=== PATIENT | female | born 1930 | race Caucasian/White ===

== ENCOUNTER 2017-07-02 08:27 | Inpatient (IN) | payer MEDICAID, OTHER ==
[~2017-07-02] VITALS: Ht 154.9 cm; Wt 75.4 kg
[2017-07-02] VITALS (37 sets, daily range): BP systolic 91–136; BP diastolic 62–101; PULSE 58–71; RESP 16–22; TEMP 94.9; Ht 154.9 cm; Wt 75.4 kg
[~2017-07-02 08:27] MED LIST: AMIODARONE 150 MG INJ ONE; ASCO500S2 PO; ATROPINE 1 MG/10 ML SYRINGE ONE; BENA5TAB2 PO; CA CHLORIDE 10% 10 ML SYRINGE ONE; CARAS PO; CARV12.579 PO; DOCU250C58 PO; DOPamine-D5W 1.6 MG/ML 250 ML ONE; EPINEPHrine 0.1 MG/ML SYG ONE; ETOMIDATE 20 MG INJ ONE; FER325 PO; FURO-109 PO; IPRA4AER IH; NA BICARBONATE 8.4% 50 ML SYG ONE; PANT40TA3 PO; ROCURONIUM 50 MG INJ ONE; SPIR25TA PO
[2017-07-02] MEDS ORDERED: NA BICARBONATE 8.4% 50 ML SYG IV STA (08:29)
[2017-07-02] MEDS ORDERED: SOD CHLORIDE 0.9% 1,000 ML IV STA (08:29)
[2017-07-02] MEDS ORDERED: CA CHLORIDE 10% 10 ML SYRINGE IV STA (08:29)
[2017-07-02] MEDS ORDERED: HYDROmorphONE 1 MG/ML SYG IV STA (08:40)
[2017-07-02] MEDS ORDERED: ONDANSETRON 4 MG INJ IV STA (08:40)
[2017-07-02] MEDS ORDERED: HYDROmorphONE 1 MG/ML SYG ONE (08:41)
[2017-07-02] MEDS ORDERED: ROCURONIUM 50 MG INJ IV STA (08:46)
[2017-07-02] MEDS ORDERED: PROPOFOL 100 ML IV STA (08:46)
[2017-07-02] MEDS ORDERED: DOPamine-D5W 1.6 MG/ML 250 ML IV STA (08:46)
[2017-07-02] MEDS ORDERED: ETOMIDATE 20 MG INJ IV STA (08:46)
[2017-07-02 08:55] LABS: BASOPHIL # 0.1 10^3/ul (0.0-0.1); BASOPHILS % 0.7 % (0.0-2.0); EOSINOPHILS % 0.5 % (0.0-7.0); HEMOGLOBIN 12.6 g/dl (12.0-16.0); MEAN CORPUSCULAR HEMOGLOBIN 31.7 pg (29.0-33.0); MEAN CORPUSCULAR HGB CONC 31.5 g/dl (32.0-37.0); MEAN CORPUSCULAR VOLUME 100.5 fl (82.0-101.0); MEAN PLATELET VOLUME 10.9 fl (7.4-10.4); MONOCYTE # 0.5 10^3/ul (0.3-0.9); MONOCYTES % 6.1 % (0.0-11.0); NEUTROPHILS % 55.2 % (39.0-77.0); PLATELET COUNT 155 10^3/UL (140-415); RED BLOOD COUNT 3.98 10^6/ul (4.20-5.40); RED CELL DISTRIBUTION WIDTH 14.2 % (11.5-14.5); WHITE BLOOD COUNT 8.1 10^3/ul (4.8-10.8)
[2017-07-02] MEDS ORDERED: ATROPINE 0.4 MG INJ IV ONE (09:00)
[2017-07-02] MEDS ORDERED: AMIODARONE 150 MG INJ IV STA (09:03)
[2017-07-02 09:10] LABS: INR 1.23; PROTIME 15.6 Sec (12.2-14.2); PT RATIO 1.2
[2017-07-02 09:11] LABS: PARTIAL THROMBOPLASTIN TIME 26.2 Sec (25.0-35.0)
--- NOTE | 2017-07-02 09:13 | RADRPT ---
PROCEDURE: XR Chest. CLINICAL INDICATION: Status post intubation TECHNIQUE: Single portable view of the chest was obtained COMPARISON: 10/15/2014 FINDINGS: There is a new endotracheal tube 2.3 cm above the gennaro. There is mild cardiomegaly. There is a left-sided pacemaker in place. There is no focal infiltrate . There are mild bibasilar atelectatic changes, left greater than right . There is no pleural effus ion or pneumothorax. RPTAT: AA IMPRESSION: New endotracheal tube in appropriate position. Mild cardiomegaly. Mild bibasilar atelectatic changes. .Anil Lal MD, MD Date Time Electronically viewed and signed by .Anil Lal MD, on 07/02/2017 09:12 .S/
[2017-07-02 09:14] LABS: CALCIUM 9.4 mg/dl (8.4-10.2); CREATININE 1.51 mg/dl (0.44-1.00); MAGNESIUM 2.1 mg/dl (1.7-2.5); POTASSIUM 5.4 mmol/L (3.5-5.1)
[2017-07-02] MEDS ORDERED: GLUCAGON 1 MG INJ IV STA (09:19)
[2017-07-02 09:26] LABS: TROPONIN-I 0.017 ng/ml (0.00-0.12)
[2017-07-02 09:51] LABS: AADO2 Arterial 422.6 mmHg (7.0-24.0); Allen Test ACCEPTAB; Arterial Base Excess -9.3 mmol/L (-3.0-3); Arterial COHb 0.3 % (0.0-3.0); Arterial Fraction of Oxyhgb 98.8 % (93.0-99.0); Arterial MetHb 0.2 % (0.0-1.5); Arterial Total Hemglobin 13.6 g/dl (12.0-18.0); MODE VENT - AC
--- NOTE | 2017-07-02 11:20 | ERA ---
ER Documentation Chief Complaint Date/Time DATE: 07/02/17 TIME: 11:15 Chief Complaint Syncope and vomiting HPI Patient is a 86-year-old female with stroke and previous pacemaker placement who presents with syncope and vomiting. The patient was brought in by ambulance. The patient had a syncopal event which lasted 1 minute per paramedics. The patient was having shortness of breath but no pain. The patient has no history of kidney issues. The patient is currently complaining of nausea. 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 ROS All systems reviewed and are negative except as per history of present illness. Medications Home Meds Active Scripts Albuterol/Ipratropium* (Combivent Respimat*) 20-100 Mcg/Inh - 4 Gm Aer.w.adap, 1 PUFF IH QID, #30 INH Prov:KELVIN SNYDER MD 10/15/14 Furosemide* (Lasix*) 40 Mg Tablet, 40 MG PO BID, #60 TAB Prov:KELVIN SNYDER MD 10/15/14 Pantoprazole* (Protonix*) 40 Mg Tablet.dr, 40 MG PO DAILY for 30 Days, TAB Prov:LINDA SAMSON 10/10/14 Ascorbic Acid* (Ascorbic Acid*) 500 Mg/5 Ml Syrup, 500 MG PO BID for 30 Days, ML Prov:LINDA SAMSON 10/10/14 Sucralfate* (Carafate*) 1 Gm/10 Ml Susp, 1 GM PO QID for 30 Days Prov:LINDA SAMSON 10/10/14 Ferrous Sulfate* (Ferrous Sulfate*) 325 Mg Tabec, 325 MG PO BID for 30 Days Prov:LINDA SAMSON 10/10/14 Reported Medications Docusate Sodium* (Colace*) 250 Mg Capsule, 250 MG PO DAILY, CAP 09/27/14 Spironolactone* (Aldactone*) 25 Mg Tablet, 25 MG PO DAILY, TAB 09/27/14 Benazepril Hcl* (Benazepril Hcl*) 5 Mg Tablet, 5 MG PO DAILY, TAB 09/27/14 Carvedilol* (Carvedilol*) 12.5 Mg Tablet, 12.5 MG PO BID, TAB 09/27/14 Allergies Allergies: Coded Allergies: No Known Allergies (Verified Allergy, Unknown, 10/11/14) Uncoded Allergies: JEHOVAH WITNESS (Allergy, Unknown, CAUTION W/ BLOOD PRODUCTS CHECK LIST OF ACCEPTABLE PRODUCTS, 09/28/14) PMhx/Soc History of Surgery: Yes (pacemaker,appy,recent Endoclip for jejunal ulcer) Anesthesia Reaction: No Hx Neurological Disorder: No Hx Respiratory Disorders: No Hx Cardiac Disorders: Yes (CHF, HTN, A-fib, PVD, High Cholesterol, Pacer) Hx Psychiatric Problems: No Hx Miscellaneous Medical Probl: Yes (hemorragic anemia, afib, pacemaker cva, pvd) Hx Alcohol Use: No Hx Substance Use: No Hx Tobacco Use: No Smoking Status: Never smoker FmHx Family History: No diabetes Physical Exam Vitals Vital Signs Date Time Temp Pulse Resp B/P Pulse Ox O2 Delivery O2 Flow Rate FiO2 07/02/17 10:44 70 17 100 100 07/02/17 10:37 70 16 115/70 100 Mechanical Ventilator 07/02/17 10:20 72 16 83/26 100 Mechanical Ventilator 07/02/17 09:58 64 16 70/45 100 Mechanical Ventilator 07/02/17 09:57 70 16 100 100 07/02/17 09:35 70 16 86/53 100 Mechanical Ventilator 07/02/17 09:13 71 16 101/76 100 Mechanical Ventilator 07/02/17 09:00 158 194/166 90 Non Rebreather 07/02/17 08:30 188/162 Physical Exam Const: Moderate distress Head: Atraumatic Eyes: Normal Conjunctiva ENT: Normal External Ears, Nose and Mouth. Neck: Full range of motion..~ No meningismus. Resp: Clear to auscultation bilaterally Cardio: Severe bradycardia Abd: Soft, non tender, non distended. Normal bowel sounds Skin: Pale skin Back: No midline or flank tenderness Ext: No cyanosis, or edema Neur: Awake and alert Psych: Normal Mood and Affect Result Diagram: 07/02/17 0840 07/02/17 0840 Results 24 hrs Laboratory Tests Test 07/02/17 08:40 07/02/17 08:46 07/02/17 08:48 White Blood Count 8.110^3/ul Red Blood Count 3.9810^6/ul Hemoglobin 12.6g/dl Hematocrit 40.0% Mean Corpuscular Volume 100.5fl Mean Corpuscular Hemoglobin 31.7pg Mean Corpuscular Hemoglobin Concent 31.5g/dl Red Cell Distribution Width 14.2% Platelet Count 69466^3/UL Mean Platelet Volume 10.9fl Neutrophils % 55.2% Lymphocytes % 37.0% Monocytes % 6.1% Eosinophils % 0.5% Basophils % 0.7% Nucleated Red Blood Cells % 0.0/100WBC Neutrophils # (Manual) 410^3/ul Lymphocytes # 3.010^3/ul Monocytes # 0.510^3/ul Eosinophils # 0.010^3/ul Basophils # 0.110^3/ul Nucleated Red Blood Cells # 0.010^3/ul Prothrombin Time 15.6Sec Prothrombin Time Ratio 1.2 INR International Normalized Ratio 1.23 Activated Partial Thromboplast Time 26.2Sec Sodium Level 141mmol/L Potassium Level 5.4mmol/L Chloride Level 113mmol/L Carbon Dioxide Level 16mmol/L Anion Gap 17 Blood Urea Nitrogen 24mg/dl Creatinine 1.51mg/dl Glucose Level 228mg/dl Lactic Acid Level 3.1mmol/L Calcium Level 9.4mg/dl Magnesium Level 2.1mg/dl Troponin I 0.017ng/ml Blood Gas Specimen Source Blood arterial Arterial Blood Date Drawn 07/02/2017 9:40:58 AM Arterial Blood pH (Temp corrected) 7.373 Arterial Blood pCO2 (Temp correct) 24.6mmhg Arterial Blood pO2 (Temp corrected) 265.8mmHG Arterial Blood HCO3 14.0mmol/L Arterial Blood Base Excess -9.3mmol/L Arterial Blood Oxygen Saturation 99.3mmHG [place] Test ACCEPTAB Arterial Blood Gas Puncture Site Left Radial Arterial Blood Carboxyhemoglobin 0.3% Arterial Blood Methemoglobin 0.2% Blood Gas A-a O2 Differential 422.6mmHg Oxyhemoglobin Percent 98.8% Total Hemoglobin 13.6g/dl Blood Gas Temperature 37.0C Blood Gas Respiration Rate 16.0 Blood Gas Actual Respiration Rate 16 Blood Gas Modality VENT - AC FiO2 100.0% Blood Gas Tidal Volume 450.0mL Blood Gas Low PEEP Setting 5.0cmH2O Blood Gas Notified Whom M.D. Blood Gas Notified Time 07/02/2017 9:51:22 AM Bedside Glucose 187mg/dL Current Medications Medications (Trade) Dose Ordered Sig/Marshall Route PRN Reason Start Time Stop Time Status Last Admin Dose Admin Sodium Bicarbonate 50 ml 50 ml ONCE STAT IV 07/02/17 08:29 07/02/17 08:31 DC Sodium Chloride (NS) 1,000 ml @ 1,000 mls/hr Q1H STAT IV 07/02/17 08:29 07/02/17 09:28 DC Calcium Chloride (Ca Chloride 10% Syg) 1,000 mg ONCE STAT IV 07/02/17 08:29 07/02/17 08:31 DC Atropine Sulfate (Atropine) 0.5 mg ONCE ONCE IV 07/02/17 09:00 07/02/17 09:01 DC Hydromorphone HCl (Dilaudid) 1 mg ONCE STAT IV 07/02/17 08:40 07/02/17 08:41 DC Ondansetron HCl (Zofran Inj) 4 mg ONCE STAT IV 07/02/17 08:40 07/02/17 08:41 DC Hydromorphone HCl (Dilaudid) 1 mg STK-MED ONCE .ROUTE 07/02/17 08:41 07/02/17 08:42 DC Rocuronium [place] (Zemuron) 70 mg ONCE STAT IV 07/02/17 08:46 07/02/17 08:50 DC Etomidate 20 mg 20 mg ONCE STAT IV 07/02/17 08:46 07/02/17 08:50 DC Propofol 100 ml @ 0 mls/hr ONCE STAT IV 07/02/17 08:46 07/02/17 08:50 DC Dopamine HCl/ Dextrose 250 ml @ 0 mls/hr ONCE STAT IV 07/02/17 08:46 07/02/17 08:50 DC Amiodarone HCl (Cordarone) 300 mg ONCE STAT IV 07/02/17 09:03 07/02/17 09:04 DC Glucagon (Glucagen) 1 mg ONCE STAT IV 07/02/17 09:19 07/02/17 09:21 DC Procedures/MDM EKG read by me: Rate/Rhythm: Severe bradycardia at a rate of 20 Intervals: Normal Impression: Severe bradycardia with third-degree heart block Chest X-ray 1V Interpreted by me: Soft Tissue: No acute abnormalities Bones: No acute abnormalities Mediastinum/Cardiac Silhouette/Lungs: Cardiomegaly with pacemaker in good position, ET tube in good position after intubation Limited transthoracic echo performed by me Indication: To evaluate cardiac contractility and external pacemaker function Pericardium: [No effusion] Cardiac: Contraction with every pacer spike Image archived in the medical record. Endotracheal Intubation by me: Pre assessment performed. Pre-oxygenation performed with 100% oxygen RSI: Performed w/o complication or hypoxic events. Medications as ordered. Blade: MAC 3 Glidescope ET Tube: 7.5 cm Depth: 23 cm at the lip Intubation confirmed by colorimetric CO2, equal breath sounds, quiet over the stomach. Central Line Placement by me: Patient consented, sterilely draped, full prep, gown, glove, mask, time out performed. Anesthesia: 1% lidocaine locally Location: Right femoral Device: Multiple lumen Technique: Seldinger technique. Secured with suture. Results: Venous return from all ports with easy saline flush. No complications. Guide wire retrieved and disposed of. ED Ultrasound: Central line placed by me using concurrent ultrasound guidance. Real time image archived in the medical record confirms vascular anatomy. Defibrillation: Patient required defibrillation during the cardiac arrest Technique: Biphasic defibrillation at 200 J for ventricular tachycardia Patient is a 86-year-old female who presents with severe bradycardia and syncope. She had asystole early in her emergency department course and had an episode of vomiting and was unconscious. Rhythm quickly returned but the patient was intubated for airway protection. She was started on external pacing as well as it appears that her pacemaker is not functioning correctly. We are able to get good pulses with external pacing and I did confirm with ultrasound of the heart. The patient was treated empirically with calcium chloride and bicarbonate upon arrival for potential hyperkalemia but labs only show a mild hyperkalemia of 5.4 and I do not think this is the cause of her severe bradycardia. She was started on a dopamine drip which has helped keep her rate and blood pressure elevated. I spoke with Dr. Andrea who saw her previously in 2013 he said that he would be available for consultation in the afternoon. I spoke with Dr. Clayton as the patient has [employer] insurance and she will admit the patient to the intensive care unit. The patient had 2 separate episodes of cardiac arrest while in the emergency department but quickly came back with 1 mg of epinephrine and CPR. After the first cardiac arrest she was in ventricular tachycardia and the patient was given 200 J defibrillation and 300 mg of amiodarone. I also spoke with the [employer] rep who is come to the bedside and evaluated the pacemaker. He says that he cannot do a full interrogation as there is none of power in the battery and recommends a battery change. [employer] was going to relay this information to Dr. Andrea as well. Dr. Linder has also seen the patient in consultation for critical care treatment. Critical Care: Time: 55 minutes excluding all billable procedures. Treatments/Evaluations: Close monitoring and treatment of unstable vital signs, cardiorespiratory, and neurologic status, while maintaining tight balance of fluid, respiratory, and cardiac interventions. Departure Diagnosis: Primary Impression: Pacemaker failure Qualified Code: T82.118A - Pacemaker failure, initial encounter Additional Impressions: Cardiac arrest Asystole Bradycardia Condition: Critical VOLODYMYR CARDONA MD Jul 02, 2017 11:19
[2017-07-02] MEDS ORDERED: DOCUSATE SODIUM 100 MG CAP PO PRN (12:00)
[2017-07-02] MEDS ORDERED: ACETAMINOPHEN 650MG/20.3ML CUP PO PRN (12:00)
[2017-07-02] MEDS ORDERED: ACETAMINOPHEN 325 MG TAB PO PRN ×2 (12:00→18:00)
[2017-07-02] MEDS ORDERED: BISACODYL 10 MG SUPP PR PRN ×2 (12:00→12:30)
[2017-07-02] MEDS ORDERED: ONDANSETRON 4 MG INJ IV PRN (12:00)
[2017-07-02] MEDS ORDERED: MAGNESIUM HYDROXIDE 30ML CUP PO PRN (12:00)
[2017-07-02] MEDS ORDERED: DOCUSATE SODIUM 250 MG CAP PO PRN (12:30)
[2017-07-02] MEDS ORDERED: FURO20TA3 PO (12:51)
[2017-07-02] MEDS ORDERED: GABA300C16 PO (12:52)
[2017-07-02] MEDS ORDERED: CARV3.1260 PO (12:53)
[2017-07-02] MEDS ORDERED: ATOR20TA38 PO (12:53)
[2017-07-02] MEDS ORDERED: OMEP40CA6 PO (12:54)
[2017-07-02] MEDS ORDERED: MIRT15TA5 PO (12:54)
[2017-07-02] MEDS ORDERED: RIVA15TA PO (12:55)
[2017-07-02] MEDS: DOPamine-D5W 1.6 MG/ML 250 ML IV SCH ×2 (13:30→19:20)
--- NOTE | 2017-07-02 13:57 | HP ---
Date/Time of Note Date/Time of Note DATE: 07/02/17 TIME: 13:41 Assessment/Plan VTE Prophylaxis VTE Prophylaxis Intervention: SCD's Lines/Catheters IV [facility]ter Type (from [facility]): Central Line Central line still needed: Yes (IV access) Urinary Cath still in place: Yes Reason Cath still needed: other (indicate) (Cardiac arrest, intubated) Assessment/Plan Assessment/Plan 86-year-old female with: 1. 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 Dr. Andrea consulted. Rule out acute coronary syndrome with serial cardiac enzymes, Patient admitted to intensive care unit, on dopamine drip and external pacer. 2D echocardiogram ordered. Holding all cardiac medications and also Xarelto. 2. Sick sinus syndrome and or paroxysmal atrial fibrillation based on medications patient is on, external pacer in place, patient in the intensive care unit. 3. Likely coronary artery disease and ischemic cardiomyopathy very likely, 2D echocardiogram pending, I will be holding current medication including beta blockers and diuretics and also [place] inhibitors. Patient on dopamine drip. Rule out acute coronary syndrome. 4. Acute kidney injury versus chronic kidney disease with acute injury, likely patient with ATN given episodes of cardiac arrest, gentle IV fluid hydration with normal saline 75 cc an hour, monitor volume status. 5. Elevated lactate: Postcardiac arrest, continue IV fluids, recheck/trend lactate. 6. Hyperglycemia: No reported history of diabetes mellitus, check hemoglobin A1c, sliding scale insulin. Prophylaxis: SCDs for DVT prophylaxis, of note patient seems to have been on Xarelto based on medication reconciliation, Protonix for GI prophylaxis Disposition: Patient admitted to intensive care unit, cardiology evaluation today regarding pacemaker battery change for device change. HPI/ROS Admit Date/Time Admit Date/Time Jul 02, 2017 at 09:58 Hx of Present Illness Chief complaint: Vomiting, syncope History of presenting illness: 86-year-old female with a reported history of likely cardiomyopathy, sick sinus syndrome status post pacemaker and likely pacemaker dependent, hypertension, previous strokes 2 latest one a year ago and fairly independent and active at baseline who presented today to the emergency department with reported episode of syncope and acute onset of nausea and vomiting per family. On presentation the patient's heart rate was in the 20s. She was awake and alert but unfortunately progressed to cardiac arrest and respiratory failure had to be intubated. Patient likely pacemaker has run out of battery, but that is consulted, patient has an external pacer currently while intubated, on the ventilator, on dopamine drip, on propofol for sedation. She is being admitted to the intensive care unit. She is obviously unable to give any history, history was obtained from his granddaughter. They are unsure if the patient has been following up with cardiology. She had her original pacemaker placed back in 2000 somewhere in [place]. It seems like either the device was replaced or battery was changed back in 2008. ROS Unable to obtain review of system PMH/Family/Social Past Medical History Hypertension Cardiomyopathy Likely sick sinus syndrome and or atrial fibrillation and pacemaker dependent, also on Xarelto per outpatient medications Reactive airway disease Hyperlipidemia Reported history of old CVA 2, 120 years ago and a second 1 year ago. According to family patient has no significant deficits. Past Surgical History Status post pacemaker placement in 2000, either battery change or pacemaker replacement in 2009 Status post hip ORIF a year ago Family History Significant Family History: no pertinent family hx Social History Alcohol Use: none Smoking Status: Never smoker Drug Use: none Exam/Review of Systems Vital Signs Vitals Vital Signs Date Time Temp Pulse Resp B/P Pulse Ox O2 Delivery O2 Flow Rate FiO2 07/02/17 12:45 94.9 71 17 129/75 100 Mechanical Ventilator 07/02/17 12:16 50 07/02/17 08:30 15.0 Exam Constitutional: other (Intubated and sedated and still under paralytics when I saw her) Respiratory: diminished breath sounds, other (On mechanical ventilation) Cardiovascular: other (Externally paced) Gastrointestinal: non-tender, soft Musculoskeletal: nl extremities to inspection, other (No edema, clubbing or cyanosis) Extremities: normal pulses Neurological: other (Sedated and intubated, still under paralytics post intubation) Labs Result Diagram: 07/02/17 0840 07/02/17 0840 Medications Medications Current Medications Sodium Chloride (NS) 1,000 ml @ 75 mls/hr [id number] IV ; Start 07/02/17 at 11:51 Ondansetron HCl (Zofran Inj) 4 mg Q6H PRN IV NAUSEA AND/OR VOMITING; Start at 12:00 Acetaminophen (Tylenol Liquid) 650 mg Q6H PRN PO PAIN LEVEL 1-3 OR FEVER; Start 07/02/17 at 12:00 Acetaminophen (Tylenol Tab) 650 mg Q6H PRN PO PAIN LEVEL 1-3 OR FEVER; Start at 12:00 Morphine Sulfate (morphine) 2 mg Q4H PRN IV PAIN LEVEL 7-10; Start 07/02/17 at 12:00 Docusate Sodium (Colace) 100 mg Q12H PRN PO CONSTIPATION; Start 07/02/17 at 12: 00 Magnesium Hydroxide (Milk Of Mag) 30 ml DAILY PRN PO CONSTIPATION; Start at 12:00 Pantoprazole (Protonix Iv) 40 mg DAILY@06 IV ; Start 07/03/17 at 06:00 Ferrous Sulfate (Ferrous Sulfate (Ec)) 325 mg BID PO ; Start 07/02/17 at 21:00 Bisacodyl (Dulcolax Supp) 10 mg DAILY PRN VT CONSTIPATION; Start 07/02/17 at 12 :30 JACQUE MARTINEZ Jul 02, 2017 13:53
[2017-07-02] MEDS ORDERED: GLUCOSE GEL 15 GRAM TUBE BUCCAL PRN (14:00)
[2017-07-02] MEDS ORDERED: GLUCAGON 1 MG INJ IM PRN (14:00)
[2017-07-02] MEDS ORDERED: DEXTROSE 50% 50 ML SYRINGE IV PRN ×2 (14:00)
[2017-07-02] MEDS ORDERED: PROPOFOL 100 ML IV SCH (14:00)
[2017-07-02] MEDS ORDERED: GLUCOSE GEL 15 GRAM TUBE PO PRN ×2 (14:00)
[2017-07-02] MEDS ORDERED: SOD CHLORIDE 0.9% 1,000 ML IV ONE (14:00)
[2017-07-02] MEDS: FENTAnyl (DRIP) 1000 mcg/100mL 100 ML IV SCH (14:30)
[2017-07-02 14:43] LABS: BASOPHILS % 0.3 % (0.0-2.0); EOSINOPHILS % 0.1 % (0.0-7.0); HEMATOCRIT 39.6 % (37.0-47.0); HEMOGLOBIN 12.9 g/dl (12.0-16.0); LYMPHOCYTES # 0.8 10^3/ul (0.8-2.9); LYMPHOCYTES % 6.5 % (15.0-51.0); MEAN CORPUSCULAR HEMOGLOBIN 32.5 pg (29.0-33.0); MEAN CORPUSCULAR HGB CONC 32.6 g/dl (32.0-37.0); MEAN CORPUSCULAR VOLUME 99.7 fl (82.0-101.0); MEAN PLATELET VOLUME 10.2 fl (7.4-10.4); MONOCYTE # 1.1 10^3/ul (0.3-0.9); MONOCYTES % 9.3 % (0.0-11.0); NEUTROPHILS % 83.1 % (39.0-77.0); PLATELET COUNT 140 10^3/UL (140-415); RED BLOOD COUNT 3.97 10^6/ul (4.20-5.40); RED CELL DISTRIBUTION WIDTH 13.8 % (11.5-14.5); WHITE BLOOD COUNT 11.8 10^3/ul (4.8-10.8)
[2017-07-02 15:15] LABS: CK-MB 10.6 ng/ml (0.0-2.4)
[2017-07-02 15:19] LABS: TROPONIN-I 3.99 ng/ml (0.00-0.12)
[2017-07-02] MEDS: SOD CHLORIDE 0.9% 1,000 ML IV SCH (15:58)
[2017-07-02] MEDS: ALBUTEROL 18 GM INHALER INH SCH ×2 (16:24→21:12)
[2017-07-02] MEDS: IPRATROPIUM (HFA) 12.9 GM INHALER INH SCH ×2 (16:24→21:12)
[2017-07-02] MEDS ORDERED: POLYMYXIN/BACITRACIN 1L IRRIG IRR SCH (16:30)
--- NOTE | 2017-07-02 16:44 | RADRPT ---
Echocardiogram Report Patient Name: GEORGI MACK Gender: Female Date: 1930 Study Date: 02-Jul-2017 Console Assembler: Queenie De Jesus NATASHA Location: 2 Ref. Physician: CECILIO MARTINEZ Quality: Adequate Procedures: Transthoracic echocardiogram with complete 2D, M-Mode, and doppler examination. Indications: Cardiac Arrest. 2D/M Mode Doppler Measurement Value Normal Ranges Measurement Value Normal Ranges LVIDd 2D 4.6 3.5 - 5.6 cm AV Peak Vladimir 1.2 m/sec LVIDs 2D 3.1 2.1 - 4.1 cm AV Peak PG 6.0 mmHg LVPWd 2D 0.8 0.6 - 1.1 cm LVOT Peak Vladimir 0.7 m/sec IVSd 2D 0.9 0.6 - 1.1 cm LVOT Peak PG 1.9 mmHg AoR Diam 2D 2.4 2.0 - 3.7 cm TR Peak Vladimir 3.7 m/sec EDV 2D 95.9 cm3 TR Peak PG 54.5 mmHg ESV 2D 28.4 cm3 RVSP 65.0 mmHg LA Dimen 2D 3.6 2.3 - 4.0 cm Findings Left Ventricle: Normal left ventricular cavity size. Normal left ventricular wall thickness. Severe global left ventricular systolic dysfunction. Ejection fraction is visually estimated at 25 %. Tissue Doppler/Mitral Doppler indices are within normal limits. Right Ventricle: Normal right ventricular systolic function. Moderate enlargement of right ventricle. Pacemaker right heart. Left Atrium: There is mild enlargement of left atrium. Right Atrium: There is mild enlargement of right atrium. Mitral Valve: Mitral valve leaflets appear mildly thickened. Mild mitral annular calcification. Mild mitral valve regurgitation. Aortic Valve: No significant aortic stenosis or insufficiency. Aortic cusps appear mildly calcified. Tricuspid Valve: Estimated peak PA systolic pressure 65 mmHg. Tricuspid valve appears mildly thickened. There is moderate to severe tricuspid regurgitation. Pulmonic Valve: Pulmonic valve not well visualized. Pericardium: Normal pericardium with no significant pericardial effusion. Aorta: Normal aortic root. IVC: Dilated IVC without respiratory collapse, however, patient on ventilator. Conclusions 1.Normal left ventricular cavity size. Normal left ventricular wall thickness. Severe global left ventricular systolic dysfunction. Ejection fraction is visually estimated at 25 %. Tissue Doppler/Mitral Doppler indices are within normal limits. 2.There is mild enlargement of left atrium. 3.There is mild enlargement of right atrium. 4.Mitral valve leaflets appear mildly thickened. Mild mitral annular calcification. Mild mitral valve regurgitation. 5.No significant aortic stenosis or insufficiency. Aortic cusps appear mildly calcified. 6.Estimated peak PA systolic pressure 65 mmHg. Tricuspid valve appears mildly thickened. There is moderate to severe tricuspid regurgitation. 7.Dilated IVC without respiratory collapse, however, patient on ventilator. Electronically Signed By: Negro Andrea 02-Jul-2017 16:43:22 -0700 Patient Name: GEORGI MACK Study Date: 02-Jul-[id number]
--- NOTE | 2017-07-02 16:58 | CONS ---
Date/Time of Note Date/Time of Note DATE: 07/02/17 TIME: 16:49 Assessment/Plan Assessment/Plan Chief Complaint/Hosp Course 1. CARDIAC ARREST DUE TO HEART BLOCK and pacer End of life in a pt pacer dependent. 2. pacemaker End of life 3. CHF 4. CARDIOMYOPATHY 5. HX CVA 6. PAFIB 7. HEART BLOCK 8. JAHUVAS WITNESS 9. RESP FAILURE Recommendations: We will continue the vent support. External pacemaker for now. Patient will need emergent pacemaker generator change. Placement alternatives of procedure discussed with the patient daughter and discussed with the patient's son over the phone. Single internal bleeding infection risk. OK stroke that is thoroughly discussed with them. Consent the procedure. It was explained to them that she may or may not need in limb lead II which would also add additional risks include pneumothorax hemothorax perforation other cardiac medication to the procedure. At this point we cannot check the lead intubated to the pacemaker battery being completely Continue with ICU care. More than 45 minutes of critical care time was spent a treatment and management this patient excluding any procedures. Thank you for his referral I will continue to follow along with you. ABDELRAHMAN KOEHLER MD [facility]. Problems: Consultation Date/Type/Reason Admit Date/Time Jul 02, 2017 at 09:58 Type of Consultation: INTERVENTIONAL CARDIOLOGY Reason for Consultation PACEMAKER END OF LIFE. CARDIAC ARREST CHF Hx of Present Illness Chief complaint: Vomiting, syncope History of presenting illness: 86-year-old female with history of cardiomyopathy , heart block status post Medtronic pacemaker hypertension, previous strokes 2 latest one a year ago and fairly independent and active at baseline who presented today to the emergency department with reported episode of syncope and acute onset of nausea and vomiting per family. On presentation the patient' s heart rate was in the 20s. She was awake and alert but unfortunately progressed to cardiac arrest and respiratory failure had to be intubated. multiple cardiac resuscitation was done in ER. Pacemaker was interrogated in the ER by my request and was personally reviewed. Pacemaker is end of life and is not pacing at this point. Patient has been externally paced and transferred to ICU. She has maintained her blood pressure with external pacemaker. She is obviously unable to give any history, history was obtained from her daughter and informed over the phone from her son. According to the family patient pacemaker was interrogated about a year and a half ago. The family does not even know when was the last time she saw her panel laminator. She is also on Xarelto unclear when was the last time she took it. She has requested not to be transfused. Patient currently in ICU being externally paced. She has almost no underlying rhythm though. Allergy NKDA SOCIAL: pt is hehovah witness. full code. nonsmoker now. family hx: no reported early CAD MEDS REVIEWED. ROS: unable to obtain except for above Social History Alcohol Use: none Smoking Status: Never smoker Drug Use: none Exam/Review of Systems Vital Signs Vitals Vital Signs Date Time Temp Pulse Resp B/P Pulse Ox O2 Delivery O2 Flow Rate FiO2 07/02/17 16:15 69 18 100 07/02/17 16:00 118/75 07/02/17 15:38 50 07/02/17 12:45 94.9 Mechanical Ventilator 07/02/17 08:30 15.0 Exam General: intubated on vent HEENT: NC/AT. NECK: + JVD. no stridor. CV: RRR. systolic murmur; no gallop or rubs. PULM:+ rhonchi. GI: SOFT, NT, ND, no rebound or guarding Extremity: trace B/L LE edema. no clubbing. neuro: sedated. Psych: calm and pleasant rectal: deferred : normal echo personally reviewed. EF 25% MOD/ SEVER TR PULM HTN Results Result Diagram: 07/02/17 1436 07/02/17 0840 Results 24 hrs Laboratory Tests Test 07/02/17 08:40 07/02/17 08:46 07/02/17 08:48 07/02/17 14:36 White Blood Count 8.1 # 11.8 #H Red Blood Count 3.98 #L 3.97 L Hemoglobin 12.6 # 12.9 Hematocrit 40.0 # 39.6 Mean Corpuscular Volume 100.5 99.7 Mean Corpuscular Hemoglobin 31.7 32.5 Mean Corpuscular Hemoglobin Concent 31.5 L 32.6 Red Cell Distribution Width 14.2 # 13.8 Platelet Count 155 140 Mean Platelet Volume 10.9 #H 10.2 Neutrophils % 55.2 83.1 H Lymphocytes % 37.0 6.5 L Monocytes % 6.1 9.3 Eosinophils % 0.5 0.1 Basophils % 0.7 0.3 Nucleated Red Blood Cells % 0.0 0.0 Neutrophils # (Manual) 4 10 H Lymphocytes # 3.0 H 0.8 Monocytes # 0.5 1.1 H Eosinophils # 0.0 0.0 Basophils # 0.1 0.0 Nucleated Red Blood Cells # 0.0 0.0 Prothrombin Time 15.6 H Prothrombin Time Ratio 1.2 INR International Normalized Ratio 1.23 Activated Partial Thromboplast Time 26.2 Sodium Level 141 Potassium Level 5.4 H Chloride Level 113 H Carbon Dioxide Level 16 L Anion Gap 17 H Blood Urea Nitrogen 24 H Creatinine 1.51 H Glucose Level 228 H Hemoglobin A1c 5.6 Lactic Acid Level 3.1 *H 2.2 *H Calcium Level 9.4 Magnesium Level 2.1 Troponin I 0.017 3.990 *H Blood Gas Specimen Source Blood arterial Arterial Blood Date Drawn 07/02/2017 9:40:58 AM Arterial Blood pH (Temp corrected) 7.373 Arterial Blood pCO2 (Temp correct) 24.6 L Arterial Blood pO2 (Temp corrected) 265.8 H Arterial Blood HCO3 14.0 L Arterial Blood Base Excess -9.3 L Arterial Blood Oxygen Saturation 99.3 Carlton Test ACCEPTAB Arterial Blood Gas Puncture Site Left Radial Arterial Blood Carboxyhemoglobin 0.3 Arterial Blood Methemoglobin 0.2 Blood Gas A-a O2 Differential 422.6 H Oxyhemoglobin Percent 98.8 Total Hemoglobin 13.6 Blood Gas Temperature 37.0 Blood Gas Respiration Rate 16.0 Blood Gas Actual Respiration Rate 16 Blood Gas Modality VENT - AC FiO2 100.0 Blood Gas Tidal Volume 450.0 Blood Gas Low PEEP Setting 5.0 Blood Gas Notified Whom M.D. Blood Gas Notified Time 07/02/2017 9:51:22 AM Bedside Glucose 187 Creatine Kinase 101 Creatine Kinase Index 10.5 Creatinine Kinase MB (Mass) 10.60 H Test 07/02/17 14:40 Bedside Glucose 197 Medications Medications Current Medications Sodium Chloride (NS) 1,000 ml @ 75 mls/hr [id number] IV Last administered on 07/02t 15:58; Admin Dose 75 MLS/HR; Start 07/02/17 at 11:51 Ondansetron HCl (Zofran Inj) 4 mg Q6H PRN IV NAUSEA AND/OR VOMITING; Start at 12:00 Acetaminophen (Tylenol Liquid) 650 mg Q6H PRN PO PAIN LEVEL 1-3 OR FEVER; Start 07/02/17 at 12:00 Acetaminophen (Tylenol Tab) 650 mg Q6H PRN PO PAIN LEVEL 1-3 OR FEVER; Start at 12:00 Morphine Sulfate (morphine) 2 mg Q4H PRN IV PAIN LEVEL 7-10; Start 07/02/17 at 12:00 Docusate Sodium (Colace) 100 mg Q12H PRN PO CONSTIPATION; Start 07/02/17 at 12: 00 Magnesium Hydroxide (Milk Of Mag) 30 ml DAILY PRN PO CONSTIPATION; Start at 12:00 Pantoprazole (Protonix Iv) 40 mg DAILY@06 IV ; Start 07/03/17 at 06:00 Ferrous Sulfate (Ferrous Sulfate (Ec)) 325 mg BID PO ; Start 07/02/17 at 21:00 Bisacodyl (Dulcolax Supp) 10 mg DAILY PRN [place] CONSTIPATION; Start 07/02/17 at 12 :30 Diagnostic Test (Pha) (Accu-Chek) 1 ea 02 XX ; Start 07/03/17 at 02:00 Miscellaneous Information 1 ea NOTE XX ; Start 07/02/17 at 14:00 Glucose (Glutose) 15 gm Q15M PRN PO DECREASED GLUCOSE; Start 07/02/17 at 14:00 Glucose (Glutose) 22.5 gm Q15M PRN PO DECREASED GLUCOSE; Start 07/02/17 at 14: 00 Dextrose (D50w Syringe) 25 ml Q15M PRN IV DECREASED GLUCOSE; Start 07/02/17 at 14:00 Dextrose (D50w Syringe) 50 ml Q15M PRN IV DECREASED GLUCOSE; Start 07/02/17 at 14:00 Glucagon (Glucagen) 1 mg Q15M PRN IM DECREASED GLUCOSE; Start 07/02/17 at 14:00 Glucose (Glutose) 15 gm Q15M PRN BUCCAL DECREASED GLUCOSE; Start 07/02/17 at 14 :00 ABDELRAHMAN KOEHLER MD Jul 02, 2017 16:58
[2017-07-02] MEDS ORDERED: LIDOCAINE 1%/EPI 30 ML INJ ONE (17:04)
[2017-07-02] MEDS ORDERED: CEFAZOLIN 2 GM/50 ML (PMX) 50 ML IVPB ONE (17:04)
[2017-07-02 17:15] LABS: ALBUMIN 4.1 g/dl (3.3-4.9); ALBUMIN/GLOBULIN RATIO 1.28; CALCIUM 9.9 mg/dl (8.4-10.2); CREATININE 1.57 mg/dl (0.44-1.00); POTASSIUM 5.2 mmol/L (3.5-5.1); TOTAL PROTEIN 7.3 g/dl (6.1-8.1)
--- NOTE | 2017-07-02 18:02 | OPR ---
Date/Time of Note Date/Time of Note DATE: 07/02/17 TIME: 17:59 Operative Report Procedure Date: Jul 02, 2017 Operative\Procedure Findings Procedure performed: Pacemaker Generator Change using a MEDTRONIC VVI MRI compatible pacemaker. deep sedation for 45 minutes. Indication: pacemaker at END OF LIFE in the patient with pacer dependent. Cardiac arrest due to asystole Anesthesia: Propofol Rib Cloth Knitter: Abdelrahman Andrea MD Procedure in detail: Written informed consent was obtained after risks benefits and alternatives discussed with the patient's family in detail. Risks including but not limited to risk of infection, bleeding anesthesia related complications, UT, CVA, etc discussed with pt in detail. Patient was brought into into the Ski Lift Operator and placed in supine position. sedation was given. Left chest area was prepped and draped in regular sterile fashion. Left chest area, over the previous pacemaker was anesthetized using 1% lidocaine with epi. A 3 cm incision was made over the previous pacemaker. Blunt dissection was carried out. Pacemaker was isolated and removed from the pocket. The lead was disconnected and interrogated which showed normal function of the leads. Then the lead was connected into the new device. Pocket was irrigated antibiotic solution. The device was placed in the pocket. Antibiotic pocket was placed around it. Pocket was closed with 2 layers of 3. 0 Vicryl sutures. Steri-Strip was applied. Pressure dressing was applied. Patient tolerated the procedure well with no complication. Please see physical chart for details regarding pacemaker information and thresholds. BLOOD LOSS: minimal ABDELRAHMAN ANDREA MD [facility] ABDELRAHMAN ANDREA MD Jul 02, 2017 18:02
[2017-07-02] MEDS: INSULIN ASPART [NOVOLOG] 3 ML PEN SC SCH ×2 (18:15→21:00)
[2017-07-02] MEDS: PROPOFOL 100 ML IV SCH (18:16)
[2017-07-02] MEDS: FERROUS SULFATE (EC) 325 MG TAB PO SCH (21:00)
[2017-07-02 21:45] LABS: CK-MB 18.4 ng/ml (0.0-2.4)
[2017-07-02 21:52] LABS: TROPONIN-I 8.51 ng/ml (0.00-0.12)
[2017-07-02 22:11] LABS: AADO2 Arterial 191.1 mmHg (7.0-24.0); Allen Test ACCEPTAB; Arterial Base Excess -9.8 mmol/L (-3.0-3); Arterial COHb 0.3 % (0.0-3.0); Arterial Fraction of Oxyhgb 97.9 % (93.0-99.0); Arterial HCO3 14.6 mmol/L (22.0-26.0); Arterial MetHb 0.2 % (0.0-1.5); Arterial Total Hemglobin 14.6 g/dl (12.0-18.0); MODE VENT - AC
[2017-07-02] MEDS: CEFAZOLIN 1 GM/50 ML (PMX) 50 ML IVPB SCH (22:13)
--- NOTE | 2017-07-02 23:23 | CONS ---
DATE OF ADMISSION: 07/02/2017 DATE OF CONSULTATION: 07/02/2017 REASON FOR CONSULTATION: Ventilator management. Thank you, Dr. Clayton, for this consultation. HISTORY OF PRESENT ILLNESS: This is an unfortunate 86-year-old lady, history of CVA and pacemaker who came into the emergency room following a syncopal episode with mild dyspnea. Denies any chest pain. In the emergency room she became unresponsive, requiring external pacemaker placement and initiation of dopamine inotropic support. In addition, it appears the patient had subsequent ventricular tachycardia requiring defibrillation and initiation of amiodarone 300 mg IV. Pacemaker rep was contacted and they recommended battery change. Currently patient continues mechanical ventilation, external pacing, continues dopamine infusion. PAST MEDICAL HISTORY: As above. MEDICATION: Medications per chart. ALLERGIES: NONE. SOCIAL HISTORY: Nonsmoker. No alcohol. No history of drug use. FAMILY HISTORY: Noncontributory. REVIEW OF SYSTEMS: Twelve point review of systems currently unable to perform. PHYSICAL EXAMINATION: GENERAL APPEARANCE: On examination, chronically ill appearing lady, intubated, on mechanical ventilation. Appears comfortable at rest. VITAL SIGNS: Temperature 94.5, pulse is 70, blood pressure 129/75, O2 96 on FiO2 of 50 percent. Orally intubated. NECK: Supple. No JVD. HEART: S1, S2, no added sounds or murmurs. CHEST: Diminished air entry bilaterally. ABDOMEN: Soft, nontender. No guarding or rebound. EXTREMITIES: No cyanosis, clubbing, edema. NEUROLOGICALLY: Unable to assess. LABORATORY: White count 8.1, hemoglobin 12.6, platelets of 155. BUN 24, creatinine 1.51. Lactic acid was 3.1. ABG: pH 7.37, pCO2 24, PO2 of 265, bicarb was 14. IMPRESSION: 1. Severe bradycardia. Subsequent cardiopulmonary arrest. 2. History of pacemaker placement. 3. Hypoxemic respiratory failure. 4. Metabolic acidosis with likely renal insufficiency secondary to cardiac dysfunction. PLAN: 1. Continue mechanical ventilation. 2. Volume resuscitation. 3. Serial lactic acid. 4. Initiation of antibiotics if evidence of fever or infection. 5. Cardiology recommendations and pacemaker replacement. Dictated By: Steve Linder MD /anthony/ /Document#: [id number]
[2017-07-03] VITALS (88 sets, daily range): BP systolic 82–123; BP diastolic 50–78; PULSE 60; RESP 15–27
[2017-07-03] MEDS ORDERED: ACCU-CHEK XX SCH (02:00)
[2017-07-03] MEDS: ACCU-CHEK XX SCH (02:00)
[2017-07-03] MEDS: FENTAnyl (DRIP) 1000 mcg/100mL 100 ML IV SCH (02:40)
[2017-07-03] MEDS: DOPamine-D5W 1.6 MG/ML 250 ML IV SCH ×4 (03:01→23:46)
[2017-07-03 05:14] LABS: BASOPHILS % 0.2 % (0.0-2.0); HEMATOCRIT 39.7 % (37.0-47.0); HEMOGLOBIN 12.8 g/dl (12.0-16.0); LYMPHOCYTES # 0.8 10^3/ul (0.8-2.9); LYMPHOCYTES % 6.6 % (15.0-51.0); MEAN CORPUSCULAR HEMOGLOBIN 31.8 pg (29.0-33.0); MEAN CORPUSCULAR HGB CONC 32.2 g/dl (32.0-37.0); MEAN CORPUSCULAR VOLUME 98.5 fl (82.0-101.0); MEAN PLATELET VOLUME 10.7 fl (7.4-10.4); MONOCYTE # 0.6 10^3/ul (0.3-0.9); MONOCYTES % 4.9 % (0.0-11.0); NEUTROPHILS % 87.7 % (39.0-77.0); PLATELET COUNT 167 10^3/UL (140-415); RED BLOOD COUNT 4.03 10^6/ul (4.20-5.40); WHITE BLOOD COUNT 12.6 10^3/ul (4.8-10.8)
[2017-07-03 05:29] LABS: INR 1.44; PROTIME 17.6 Sec (12.2-14.2); PT RATIO 1.4
[2017-07-03 05:30] LABS: PARTIAL THROMBOPLASTIN TIME 34.9 Sec (25.0-35.0)
[2017-07-03 05:47] LABS: CHOL/HDL RATIO 2.7 RATIO
[2017-07-03] MEDS ORDERED: PANTOPRAZOLE 40 MG INJ IV SCH (06:00)
[2017-07-03 06:10] LABS: THYROID STIMULATING HORMONE 2.16 MIU/L (0.465-4.680)
[2017-07-03] MEDS: SOD CHLORIDE 0.9% 1,000 ML IV SCH ×3 (06:20→20:00)
[2017-07-03] MEDS: CEFAZOLIN 1 GM/50 ML (PMX) 50 ML IVPB SCH ×2 (06:20→15:03)
[2017-07-03 06:21] LABS: MAGNESIUM 1.6 mg/dl (1.7-2.5); PHOSPHORUS 3.8 mg/dl (2.5-4.9)
[2017-07-03 06:23] LABS: ALBUMIN 3.6 g/dl (3.3-4.9); ALBUMIN/GLOBULIN RATIO 1.2; BILIRUBIN,INDIRECT 0.3 mg/dl (0-1.1); BILIRUBIN,TOTAL 0.3 mg/dl (0.2-1.3); CALCIUM 9.3 mg/dl (8.4-10.2); CREATININE 1.95 mg/dl (0.44-1.00); POTASSIUM 5.5 mmol/L (3.5-5.1); TOTAL PROTEIN 6.6 g/dl (6.1-8.1)
[2017-07-03 06:34] LABS: CK-MB 14.7 ng/ml (0.0-2.4)
[2017-07-03 06:41] LABS: TROPONIN-I 5.3 ng/ml (0.00-0.12)
--- NOTE | 2017-07-03 07:17 | RADRPT ---
PROCEDURE: Chest 1 views. CLINICAL INDICATION: Shortness of breath TECHNIQUE: AP views of the chest was obtained. COMPARISON: Yesterday FINDINGS: The heart is large. Endotracheal tube is stable and appears in grossly appropriate location. Left-s ided pacemaker has its lead over the heart and appears grossly stable. Proximal aspect of the pacem nicolás lead of the appears curled slightly differently than on prior exam. Scattered atelectasis is i dentified in the bilateral lower lungs. No consolidations are identified. No pneumothorax is seen. Osseous structures are unchanged. IMPRESSION: Cardiomegaly . Scattered atelectasis in the bilateral lower lungs. RPTAT: AA .Jayme Cheng MD, MD Date Time Electronically viewed and signed by .Jayme Cheng MD, on 07/03/2017 07:17 .P/
[2017-07-03] MEDS: INSULIN ASPART [NOVOLOG] 3 ML PEN SC SCH ×4 (07:35→21:00)
--- NOTE | 2017-07-03 07:49 | PN ---
Date/Time of Note Date/Time of Note DATE: 07/03/17 TIME: 07:48 Assessment/Plan VTE Prophylaxis VTE Prophylaxis Intervention: SCD's Lines/Catheters IV Catheter Type (from Nrs): Central Line Central line still needed: No Urinary Cath still in place: Yes Reason Cath still needed: urinary retention Assessment/Plan Assessment/Plan 1. CARDIAC ARREST DUE TO HEART BLOCK and pacer End of life in a pt pacer dependent. 2. pacemaker End of life 3. CHF 4. CARDIOMYOPATHY 5. HX CVA 6. PAFIB 7. HEART BLOCK 8. JAHUVAS WITNESS 9. RESP FAILURE Recommendations: s/p emergent pacemaker generator change. Remains on dopamine currently intubated and continue pulmonary managment Subjective 24 Hr Interval Summary Free Text/Dictation The patient on pressors and stable post PPM Exam/Review of Systems Vital Signs Vitals Vital Signs Date Time Temp Pulse Resp B/P Pulse Ox O2 Delivery O2 Flow Rate FiO2 07/03/17 06:00 60 16 94/58 97 Mechanical Ventilator 07/03/17 05:20 35 07/03/17 04:00 98.6 07/02/17 08:30 15.0 Intake and Output 07/02/17 07/02/17 07/03/17 15:00 23:00 07:00 Intake Total 1079.7 ml 2018.00 ml 961.35 ml Output Total 0 ml 20 ml 30 ml Balance 1079.7 ml 1998.00 ml 931.35 ml Results Result Diagram: 07/03/17 0410 07/03/17 0410 Results 24 hrs Laboratory Tests Test 07/02/17 08:40 07/02/17 08:46 07/02/17 08:48 07/02/17 14:36 White Blood Count 8.1 # 11.8 #H Red Blood Count 3.98 #L 3.97 L Hemoglobin 12.6 # 12.9 Hematocrit 40.0 # 39.6 Mean Corpuscular Volume 100.5 99.7 Mean Corpuscular Hemoglobin 31.7 32.5 Mean Corpuscular Hemoglobin Concent 31.5 L 32.6 Red Cell Distribution Width 14.2 # 13.8 Platelet Count 155 140 Mean Platelet Volume 10.9 #H 10.2 Neutrophils % 55.2 83.1 H Lymphocytes % 37.0 6.5 L Monocytes % 6.1 9.3 Eosinophils % 0.5 0.1 Basophils % 0.7 0.3 Nucleated Red Blood Cells % 0.0 0.0 Neutrophils # (Manual) 4 10 H Lymphocytes # 3.0 H 0.8 Monocytes # 0.5 1.1 H Eosinophils # 0.0 0.0 Basophils # 0.1 0.0 Nucleated Red Blood Cells # 0.0 0.0 Prothrombin Time 15.6 H Prothrombin Time Ratio 1.2 INR International Normalized Ratio 1.23 Activated Partial Thromboplast Time 26.2 Sodium Level 141 Potassium Level 5.4 H Chloride Level 113 H Carbon Dioxide Level 16 L Anion Gap 17 H Blood Urea Nitrogen 24 H Creatinine 1.51 H Glucose Level 228 H Hemoglobin A1c 5.6 Lactic Acid Level 3.1 *H 2.2 *H Calcium Level 9.4 Magnesium Level 2.1 Troponin I 0.017 3.990 *H Blood Gas Specimen Source Blood arterial Arterial Blood Date Drawn 07/02/2017 9:40:58 AM Arterial Blood pH (Temp corrected) 7.373 Arterial Blood pCO2 (Temp correct) 24.6 L Arterial Blood pO2 (Temp corrected) 265.8 H Arterial Blood HCO3 14.0 L Arterial Blood Base Excess -9.3 L Arterial Blood Oxygen Saturation 99.3 Carlton Test ACCEPTAB Arterial Blood Gas Puncture Site Left Radial Arterial Blood Carboxyhemoglobin 0.3 Arterial Blood Methemoglobin 0.2 Blood Gas A-a O2 Differential 422.6 H Oxyhemoglobin Percent 98.8 Total Hemoglobin 13.6 Blood Gas Temperature 37.0 Blood Gas Respiration Rate 16.0 Blood Gas Actual Respiration Rate 16 Blood Gas Modality VENT - AC FiO2 100.0 Blood Gas Tidal Volume 450.0 Blood Gas Low PEEP Setting 5.0 Blood Gas Notified Whom Ricky Blood Gas Notified Time 07/02/2017 9:51:22 AM Bedside Glucose 187 Creatine Kinase 101 Creatine Kinase Index 10.5 Creatinine Kinase MB (Mass) 10.60 H Test 07/02/17 14:40 07/02/17 16:49 07/02/17 18:12 07/02/17 20:51 Bedside Glucose 197 178 Sodium Level 144 Potassium Level 5.2 H Chloride Level 114 H Carbon Dioxide Level 15 L Anion Gap 20 H Blood Urea Nitrogen 26 H Creatinine 1.57 H Glucose Level 201 Calcium Level 9.9 Total Bilirubin 1.0 Direct Bilirubin 0.00 Indirect Bilirubin 1.0 Aspartate Amino Transf (AST/SGOT) 139 H Alanine Aminotransferase (ALT/SGPT) 73 H Alkaline Phosphatase 96 Total Protein 7.3 Albumin 4.1 Globulin 3.20 Albumin/Globulin Ratio 1.28 Lactic Acid Level 3.8 *H Creatine Kinase 163 Creatine Kinase Index 11.3 Creatinine Kinase MB (Mass) 18.40 H Troponin I 8.510 *H Test 07/02/17 21:04 07/02/17 21:24 07/03/17 02:58 07/03/17 04:00 Bedside Glucose 143 119 Blood Gas Specimen Source Blood arterial Arterial Blood Date Drawn 07/02/2017 10:00:17 PM Arterial Blood pH (Temp corrected) 7.328 L Arterial Blood pCO2 (Temp correct) 28.4 L Arterial Blood pO2 (Temp corrected) 133.5 H Arterial Blood HCO3 14.6 L Arterial Blood Base Excess -9.8 L Arterial Blood Oxygen Saturation 98.4 Carlton Test ACCEPTAB Arterial Blood Gas Puncture Site Right Brachial Arterial Blood Carboxyhemoglobin 0.3 Arterial Blood Methemoglobin 0.2 Blood Gas A-a O2 Differential 191.1 H Oxyhemoglobin Percent 97.9 Total Hemoglobin 14.6 Blood Gas Temperature 37.0 Blood Gas Respiration Rate 16.0 Blood Gas Actual Respiration Rate 16 Blood Gas Modality VENT - AC FiO2 50.0 Blood Gas Tidal Volume 450.0 Blood Gas Low PEEP Setting 5.0 Blood Gas Inspiratory Pressure 25.0 Blood Gas Notified Whom DEAN YA Blood Gas Notified Time 07/02/2017 10:11:38 PM Lactic Acid Level 1.8 Test 07/03/17 04:10 White Blood Count 12.6 H Red Blood Count 4.03 L Hemoglobin 12.8 Hematocrit 39.7 Mean Corpuscular Volume 98.5 Mean Corpuscular Hemoglobin 31.8 Mean Corpuscular Hemoglobin Concent 32.2 Red Cell Distribution Width 14.0 Platelet Count 167 Mean Platelet Volume 10.7 H Neutrophils % 87.7 H Lymphocytes % 6.6 L Monocytes % 4.9 Eosinophils % 0.0 Basophils % 0.2 Nucleated Red Blood Cells % 0.0 Neutrophils # (Manual) 11 H Lymphocytes # 0.8 Monocytes # 0.6 Eosinophils # 0.0 Basophils # 0.0 Nucleated Red Blood Cells # 0.0 Prothrombin Time 17.6 H Prothrombin Time Ratio 1.4 INR International Normalized Ratio 1.44 Activated Partial Thromboplast Time 34.9 Sodium Level 139 Potassium Level 5.5 H Chloride Level 112 H Carbon Dioxide Level 16 L Anion Gap 17 H Blood Urea Nitrogen 29 H Creatinine 1.95 H Glucose Level 167 Calcium Level 9.3 Phosphorus Level 3.8 Magnesium Level 1.6 L Total Bilirubin 0.3 Direct Bilirubin 0.00 Indirect Bilirubin 0.3 Aspartate Amino Transf (AST/SGOT) 60 H Alanine Aminotransferase (ALT/SGPT) 53 Alkaline Phosphatase 91 Creatine Kinase 117 Creatine Kinase Index 12.6 Creatinine Kinase MB (Mass) 14.70 H Troponin I 5.300 *H B-Type Natriuretic Peptide 39239 H Total Protein 6.6 Albumin 3.6 Globulin 3.00 Albumin/Globulin Ratio 1.20 Triglycerides Level 245 H Cholesterol Level 118 LDL Cholesterol, Calculated 26 HDL Cholesterol 43 Cholesterol/HDL Ratio 2.7 Thyroid Stimulating Hormone (TSH) 2.160 Free Thyroxine 1.02 Medications Medications Current Medications Sodium Chloride (NS) 1,000 ml @ 75 mls/hr [id number] IV Last administered on 07/03 06:20; Admin Dose 75 MLS/HR; Start 07/02/17 at 11:51 Ondansetron HCl (Zofran Inj) 4 mg Q6H PRN IV NAUSEA AND/OR VOMITING; Start at 12:00 Acetaminophen (Tylenol Liquid) 650 mg Q6H PRN PO PAIN LEVEL 1-3 OR FEVER; Start 07/02/17 at 12:00 Acetaminophen (Tylenol Tab) 650 mg Q6H PRN PO PAIN LEVEL 1-3 OR FEVER; Start at 12:00 Morphine Sulfate (morphine) 2 mg Q4H PRN IV PAIN LEVEL 7-10; Start 07/02/17 at 12:00 Docusate Sodium (Colace) 100 mg Q12H PRN PO CONSTIPATION; Start 07/02/17 at 12: 00 Magnesium Hydroxide (Milk Of Mag) 30 ml DAILY PRN PO CONSTIPATION; Start at 12:00 Pantoprazole (Protonix Iv) 40 mg DAILY@06 IV Last administered on 07/03/17 06: 20; Admin Dose 40 MG; Start 07/03/17 at 06:00 Ferrous Sulfate (Ferrous Sulfate (Ec)) 325 mg BID PO ; Start 07/02/17 at 21:00 Bisacodyl (Dulcolax Supp) 10 mg DAILY PRN [place] CONSTIPATION; Start 07/02/17 at 12 :30 Diagnostic Test (Pha) (Accu-Chek) 1 ea 02 XX ; Start 07/03/17 at 02:00 Miscellaneous Information 1 ea NOTE XX ; Start 07/02/17 at 14:00 Glucose (Glutose) 15 gm Q15M PRN PO DECREASED GLUCOSE; Start 07/02/17 at 14:00 Glucose (Glutose) 22.5 gm Q15M PRN PO DECREASED GLUCOSE; Start 07/02/17 at 14: 00 Dextrose (D50w Syringe) 25 ml Q15M PRN IV DECREASED GLUCOSE; Start 07/02/17 at 14:00 Dextrose (D50w Syringe) 50 ml Q15M PRN IV DECREASED GLUCOSE; Start 07/02/17 at 14:00 Glucagon (Glucagen) 1 mg Q15M PRN IM DECREASED GLUCOSE; Start 07/02/17 at 14:00 Glucose (Glutose) 15 gm Q15M PRN BUCCAL DECREASED GLUCOSE; Start 07/02/17 at 14 :00 Acetaminophen 650 mg 650 mg Q4H PRN PO NON-CARDIAC PAIN LEVEL (1-3); Start at 18:00 Cefazolin Sodium (Ancef 1 Gm/50 ml (Pmx)) 50 ml @ 100 mls/hr Q8 IVPB Last administered on 07/03/17t 06:20; Admin Dose 100 MLS/HR; Start 07/02/17 at 22:00 ; Stop 07/03/17 at 14:29 Aspirin 81 mg 81 mg DAILY NGT ; Start 07/03/17 at 09:00 Dopamine HCl/ Dextrose 250 ml @ 5.655 mls/ hr TITRATE IV ; Start 07/02/17 at 14 :00 Silver Sulfadiazine (Thermazene 1% 25 Gm) 1 applic DAILY TOP ; Start 07/03/17 at 09:00 JENNIFER WALL MD Jul 03, 2017 07:49
[2017-07-03] MEDS: PROPOFOL 100 ML IV SCH (08:03)
[2017-07-03] MEDS: ALBUTEROL 18 GM INHALER INH SCH ×3 (08:36→21:36)
[2017-07-03] MEDS: IPRATROPIUM (HFA) 12.9 GM INHALER INH SCH ×3 (08:36→21:37)
[2017-07-03 08:49] LABS: AADO2 Arterial 134.5 mmHg (7.0-24.0); Arterial Base Excess -10.5 mmol/L (-3.0-3); Arterial COHb 0.1 % (0.0-3.0); Arterial Fraction of Oxyhgb 95.6 % (93.0-99.0); Arterial HCO3 14.1 mmol/L (22.0-26.0); Arterial MetHb 0.3 % (0.0-1.5); MODE VENT - AC
[2017-07-03] MEDS: ASPIRIN 81 MG TAB NGT SCH (09:00)
[2017-07-03] MEDS: FERROUS SULFATE (EC) 325 MG TAB PO SCH ×2 (09:00→21:00)
--- NOTE | 2017-07-03 09:14 | PN ---
Date/Time of Note Date/Time of Note DATE: 07/03/17 TIME: 09:07 Assessment/Plan VTE Prophylaxis VTE Prophylaxis Intervention: SCD's Lines/Catheters IV Catheter Type (from Nrs): Central Line Central line still needed: Yes Urinary Cath still in place: Yes Reason Cath still needed: skin wounds contaminated by urine Assessment/Plan Assessment/Plan 86-year-old female with: 1. 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 Pacemaker changed emergently. Patient admitted to intensive care unit, on dopamine drip. This is being weaned. 2D echocardiogram reveals EF of 25%. Wean without extubation as the patient is having chest pain. 2. Sick sinus syndrome and or paroxysmal atrial fibrillation based on medications patient is on, external pacer in place, patient in the intensive care unit. 3. Acute kidney injury versus chronic kidney disease with acute injury: Creatinine increased to 1.95 and UOP decreased. Will increase IVF Intravascularly volume depleted with likely patient with ATN given episodes of cardiac arrest, gentle IV fluid hydration with normal saline 75 cc an hour, monitor volume status. Okay to give 250 bolus of NS after my discussion with Dr. Allen. 5. Elevated lactate: Postcardiac arrest, continue IV fluids, recheck/trend lactate. 6. Hyperglycemia: No reported history of diabetes mellitus, check hemoglobin A1c, sliding scale insulin. Prophylaxis: SCDs for DVT prophylaxis, of note patient seems to have been on Xarelto based on medication reconciliation, Protonix for GI prophylaxis Disposition: Patient admitted to intensive care unit, cardiology evaluation today regarding pacemaker battery change for device change. Subjective 24 Hr Interval Summary Free Text/Dictation Intubated. No events overnight. The patient is awake and nods yes and no to questions. She is signaling to remove the ETT. Also, she denies chest pain, nausea. Subjective hx not possible: other Exam/Review of Systems Vital Signs Vitals Vital Signs Date Time Temp Pulse Resp B/P Pulse Ox O2 Delivery O2 Flow Rate FiO2 07/03/17 08:15 60 16 95/59 97 07/03/17 08:00 35 07/03/17 08:00 98.2 Mechanical Ventilator 07/02/17 08:30 15.0 Intake and Output 07/02/17 07/02/17 07/03/17 15:00 23:00 07:00 Intake Total 1079.7 ml 2018.00 ml 961.35 ml Output Total 0 ml 20 ml 30 ml Balance 1079.7 ml 1998.00 ml 931.35 ml Exam Constitutional: alert, well developed Head: normocephalic ENMT: nl external ears & nose Neck: supple Respiratory: clear to auscultation, normal air movement Cardiovascular: regular rate and rhythm Gastrointestinal: soft Extremities: normal pulses Results Result Diagram: 07/03/17 0410 07/03/17 0410 Results 24 hrs Laboratory Tests Test 07/02/17 14:36 07/02/17 14:40 07/02/17 16:49 07/02/17 18:12 White Blood Count 11.8 #H Red Blood Count 3.97 L Hemoglobin 12.9 Hematocrit 39.6 Mean Corpuscular Volume 99.7 Mean Corpuscular Hemoglobin 32.5 Mean Corpuscular Hemoglobin Concent 32.6 Red Cell Distribution Width 13.8 Platelet Count 140 Mean Platelet Volume 10.2 Neutrophils % 83.1 H Lymphocytes % 6.5 L Monocytes % 9.3 Eosinophils % 0.1 Basophils % 0.3 Nucleated Red Blood Cells % 0.0 Neutrophils # (Manual) 10 H Lymphocytes # 0.8 Monocytes # 1.1 H Eosinophils # 0.0 Basophils # 0.0 Nucleated Red Blood Cells # 0.0 Lactic Acid Level 2.2 *H Creatine Kinase 101 Creatine Kinase Index 10.5 Creatinine Kinase MB (Mass) 10.60 H Troponin I 3.990 *H Bedside Glucose 197 178 Sodium Level 144 Potassium Level 5.2 H Chloride Level 114 H Carbon Dioxide Level 15 L Anion Gap 20 H Blood Urea Nitrogen 26 H Creatinine 1.57 H Glucose Level 201 Calcium Level 9.9 Total Bilirubin 1.0 Direct Bilirubin 0.00 Indirect Bilirubin 1.0 Aspartate Amino Transf (AST/SGOT) 139 H Alanine Aminotransferase (ALT/SGPT) 73 H Alkaline Phosphatase 96 Total Protein 7.3 Albumin 4.1 Globulin 3.20 Albumin/Globulin Ratio 1.28 Test 07/02/17 20:51 07/02/17 21:04 07/02/17 21:24 07/03/17 02:58 Lactic Acid Level 3.8 *H Creatine Kinase 163 Creatine Kinase Index 11.3 Creatinine Kinase MB (Mass) 18.40 H Troponin I 8.510 *H Bedside Glucose 143 119 Blood Gas Specimen Source Blood arterial Arterial Blood Date Drawn 07/02/2017 10:00:17 PM Arterial Blood pH (Temp corrected) 7.328 L Arterial Blood pCO2 (Temp correct) 28.4 L Arterial Blood pO2 (Temp corrected) 133.5 H Arterial Blood HCO3 14.6 L Arterial Blood Base Excess -9.8 L Arterial Blood Oxygen Saturation 98.4 Carlton Test ACCEPTAB Arterial Blood Gas Puncture Site Right Brachial Arterial Blood Carboxyhemoglobin 0.3 Arterial Blood Methemoglobin 0.2 Blood Gas A-a O2 Differential 191.1 H Oxyhemoglobin Percent 97.9 Total Hemoglobin 14.6 Blood Gas Temperature 37.0 Blood Gas Respiration Rate 16.0 Blood Gas Actual Respiration Rate 16 Blood Gas Modality VENT - AC FiO2 50.0 Blood Gas Tidal Volume 450.0 Blood Gas Low PEEP Setting 5.0 Blood Gas Inspiratory Pressure 25.0 Blood Gas Notified Whom [facility] Blood Gas Notified Time 07/02/2017 10:11:38 PM Test 07/03/17 04:00 07/03/17 04:10 07/03/17 07:00 07/03/17 08:10 Lactic Acid Level 1.8 White Blood Count 12.6 H Red Blood Count 4.03 L Hemoglobin 12.8 Hematocrit 39.7 Mean Corpuscular Volume 98.5 Mean Corpuscular Hemoglobin 31.8 Mean Corpuscular Hemoglobin Concent 32.2 Red Cell Distribution Width 14.0 Platelet Count 167 Mean Platelet Volume 10.7 H Neutrophils % 87.7 H Lymphocytes % 6.6 L Monocytes % 4.9 Eosinophils % 0.0 Basophils % 0.2 Nucleated Red Blood Cells % 0.0 Neutrophils # (Manual) 11 H Lymphocytes # 0.8 Monocytes # 0.6 Eosinophils # 0.0 Basophils # 0.0 Nucleated Red Blood Cells # 0.0 Prothrombin Time 17.6 H Prothrombin Time Ratio 1.4 INR International Normalized Ratio 1.44 Activated Partial Thromboplast Time 34.9 Sodium Level 139 Potassium Level 5.5 H Chloride Level 112 H Carbon Dioxide Level 16 L Anion Gap 17 H Blood Urea Nitrogen 29 H Creatinine 1.95 H Glucose Level 167 Calcium Level 9.3 Phosphorus Level 3.8 Magnesium Level 1.6 L Total Bilirubin 0.3 Direct Bilirubin 0.00 Indirect Bilirubin 0.3 Aspartate Amino Transf (AST/SGOT) 60 H Alanine Aminotransferase (ALT/SGPT) 53 Alkaline Phosphatase 91 Creatine Kinase 117 Creatine Kinase Index 12.6 Creatinine Kinase MB (Mass) 14.70 H Troponin I 5.300 *H B-Type Natriuretic Peptide 53144 H Total Protein 6.6 Albumin 3.6 Globulin 3.00 Albumin/Globulin Ratio 1.20 Triglycerides Level 245 H Cholesterol Level 118 LDL Cholesterol, Calculated 26 HDL Cholesterol 43 Cholesterol/HDL Ratio 2.7 Thyroid Stimulating Hormone (TSH) 2.160 Free Thyroxine 1.02 Blood Gas Specimen Source Blood arterial Arterial Blood Date Drawn 07/03/2017 7:35:49 AM Arterial Blood pH (Temp corrected) 7.315 L Arterial Blood pCO2 (Temp correct) 28.4 L Arterial Blood pO2 (Temp corrected) 82.0 Arterial Blood HCO3 14.1 L Arterial Blood Base Excess -10.5 L Arterial Blood Oxygen Saturation 96.0 [place]ton Test N/A Arterial Blood Gas Puncture Site Right Brachial Arterial Blood Carboxyhemoglobin 0.1 Arterial Blood Methemoglobin 0.3 Blood Gas A-a O2 Differential 134.5 H Oxyhemoglobin Percent 95.6 Total Hemoglobin 14.0 Blood Gas Temperature 37.0 Blood Gas Respiration Rate 16.0 Blood Gas Actual Respiration Rate 16 Blood Gas Modality VENT - AC FiO2 35.0 Blood Gas Tidal Volume 450.0 Blood Gas Low PEEP Setting 5.0 Blood Gas Notified Whom [facility] Blood Gas Notified Time 07/03/2017 7:54:58 AM Bedside Glucose 116 Medications Medications Current Medications Sodium Chloride (NS) 1,000 ml @ 75 mls/hr [id number] IV Last administered on 07/03t 06:20; Admin Dose 75 MLS/HR; Start 07/02/17 at 11:51 Ondansetron HCl (Zofran Inj) 4 mg Q6H PRN IV NAUSEA AND/OR VOMITING; Start at 12:00 Acetaminophen (Tylenol Liquid) 650 mg Q6H PRN PO PAIN LEVEL 1-3 OR FEVER; Start 07/02/17 at 12:00 Acetaminophen (Tylenol Tab) 650 mg Q6H PRN PO PAIN LEVEL 1-3 OR FEVER; Start at 12:00 Morphine Sulfate (morphine) 2 mg Q4H PRN IV PAIN LEVEL 7-10; Start 07/02/17 at 12:00 Docusate Sodium (Colace) 100 mg Q12H PRN PO CONSTIPATION; Start 07/02/17 at 12: 00 Magnesium Hydroxide (Milk Of Mag) 30 ml DAILY PRN PO CONSTIPATION; Start at 12:00 Pantoprazole (Protonix Iv) 40 mg DAILY@06 IV Last administered on 07/03/17 06: 20; Admin Dose 40 MG; Start 07/03/17 at 06:00 Ferrous Sulfate (Ferrous Sulfate (Ec)) 325 mg BID PO ; Start 07/02/17 at 21:00 Bisacodyl (Dulcolax Supp) 10 mg DAILY PRN [place] CONSTIPATION; Start 07/02/17 at 12 :30 Diagnostic Test (Pha) (Accu-Chek) 1 ea 02 XX ; Start 07/03/17 at 02:00 Miscellaneous Information 1 ea NOTE XX ; Start 07/02/17 at 14:00 Glucose (Glutose) 15 gm Q15M PRN PO DECREASED GLUCOSE; Start 07/02/17 at 14:00 Glucose (Glutose) 22.5 gm Q15M PRN PO DECREASED GLUCOSE; Start 07/02/17 at 14: 00 Dextrose (D50w Syringe) 25 ml Q15M PRN IV DECREASED GLUCOSE; Start 07/02/17 at 14:00 Dextrose (D50w Syringe) 50 ml Q15M PRN IV DECREASED GLUCOSE; Start 07/02/17 at 14:00 Glucagon (Glucagen) 1 mg Q15M PRN IM DECREASED GLUCOSE; Start 07/02/17 at 14:00 Glucose (Glutose) 15 gm Q15M PRN BUCCAL DECREASED GLUCOSE; Start 07/02/17 at 14 :00 Acetaminophen 650 mg 650 mg Q4H PRN PO NON-CARDIAC PAIN LEVEL (1-3); Start at 18:00 Cefazolin Sodium (Ancef 1 Gm/50 ml (Pmx)) 50 ml @ 100 mls/hr Q8 IVPB Last administered on 07/03/17 06:20; Admin Dose 100 MLS/HR; Start 07/02/17 at 22:00 ; Stop 07/03/17 at 14:29 Aspirin 81 mg 81 mg DAILY NGT ; Start 07/03/17 at 09:00 Dopamine HCl/ Dextrose 250 ml @ 5.655 mls/ hr TITRATE IV ; Start 07/02/17 at 14 :00 Silver Sulfadiazine (Thermazene 1% 25 Gm) 1 applic DAILY TOP ; Start 07/03/17 at 09:00 YVETTE BLANTON MD Jul 03, 2017 09:14
[2017-07-03] MEDS ORDERED: SOD CHLORIDE 0.9% 250 ML IV ONE (09:30)
--- NOTE | 2017-07-03 10:47 | CONS ---
Date/Time of Note Date/Time of Note DATE: 07/03/17 TIME: 10:45 Assessment/Plan Assessment/Plan Additional Assessment/Plan Chest x-ray was reviewed from today which is essentially unremarkable. Patient currently on dopamine drip at 70 mics per kilogram per minute, fentanyl 30 mics per hour, propofol 10 mics per kilogram per minute. Assessment and recommendations; 1. Patient admitted with syncope due to pacemaker malfunction status post replacement. 2. Respiratory failure, status post V. tach with defibrillation. 3. Likely chronic renal insufficiency. Patient sedation has been stopped, patient currently exhibiting good weaning parameters. I would recommend extubating her in the next 30 minutes. Meanwhile continue current supportive care. Consultation Date/Type/Reason Admit Date/Time Jul 02, 2017 at 09:58 Initial Consult Date Type of Consultation: Pulmonary/critical care 24 HR Interval Summary Free Text/Dictation Patient condition remains critical but stable patient has been taken off sedation and is completely awake and alert. Patient also has been switched over to CPAP mode and currently exhibiting good weaning parameters. Has remained mildly hypotensive, requiring dopamine drip. General exam; elderly woman, orally intubated, awake and alert despite being on sedation. Exam/Review of Systems Vital Signs Vitals Vital Signs Date Time Temp Pulse Resp B/P Pulse Ox O2 Delivery O2 Flow Rate FiO2 07/03/17 08:15 60 16 95/59 97 07/03/17 08:00 35 07/03/17 08:00 98.2 Mechanical Ventilator 07/02/17 08:30 15.0 Intake and Output 07/02/17 07/02/17 07/03/17 15:00 23:00 07:00 Intake Total 1079.7 ml 2018.00 ml 961.35 ml Output Total 0 ml 20 ml 30 ml Balance 1079.7 ml 1998.00 ml 931.35 ml Exam HEENT exam; supple neck, no JVD. No lymphadenopathy. Midline trachea. No thyromegaly. Patient has fair dentition. Orally intubated. Pupils are equal and reactive to light bilaterally. Chest exam; clear to auscultation. S1-S2 audible, no murmurs. Regular rhythm. There is a scar involving the left upper chest at the recent pacemaker insertion site. Abdomen exam; soft, nontender. No organomegaly. Bowel sounds audible. Extremity exam; no peripheral edema. No clubbing. Pulses 1+ bilaterally. 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 Results Result Diagram: 07/03/17 0410 07/03/17 0410 Results 24 hrs Laboratory Tests Test 07/02/17 14:36 07/02/17 14:40 07/02/17 16:49 07/02/17 18:12 White Blood Count 11.8 #H Red Blood Count 3.97 L Hemoglobin 12.9 Hematocrit 39.6 Mean Corpuscular Volume 99.7 Mean Corpuscular Hemoglobin 32.5 Mean Corpuscular Hemoglobin Concent 32.6 Red Cell Distribution Width 13.8 Platelet Count 140 Mean Platelet Volume 10.2 Neutrophils % 83.1 H Lymphocytes % 6.5 L Monocytes % 9.3 Eosinophils % 0.1 Basophils % 0.3 Nucleated Red Blood Cells % 0.0 Neutrophils # (Manual) 10 H Lymphocytes # 0.8 Monocytes # 1.1 H Eosinophils # 0.0 Basophils # 0.0 Nucleated Red Blood Cells # 0.0 Lactic Acid Level 2.2 *H Creatine Kinase 101 Creatine Kinase Index 10.5 Creatinine Kinase MB (Mass) 10.60 H Troponin I 3.990 *H Bedside Glucose 197 178 Sodium Level 144 Potassium Level 5.2 H Chloride Level 114 H Carbon Dioxide Level 15 L Anion Gap 20 H Blood Urea Nitrogen 26 H Creatinine 1.57 H Glucose Level 201 Calcium Level 9.9 Total Bilirubin 1.0 Direct Bilirubin 0.00 Indirect Bilirubin 1.0 Aspartate Amino Transf (AST/SGOT) 139 H Alanine Aminotransferase (ALT/SGPT) 73 H Alkaline Phosphatase 96 Total Protein 7.3 Albumin 4.1 Globulin 3.20 Albumin/Globulin Ratio 1.28 Test 07/02/17 20:51 07/02/17 21:04 07/02/17 21:24 07/03/17 02:58 Lactic Acid Level 3.8 *H Creatine Kinase 163 Creatine Kinase Index 11.3 Creatinine Kinase MB (Mass) 18.40 H Troponin I 8.510 *H Bedside Glucose 143 119 Blood Gas Specimen Source Blood arterial Arterial Blood Date Drawn 07/02/2017 10:00:17 PM Arterial Blood pH (Temp corrected) 7.328 L Arterial Blood pCO2 (Temp correct) 28.4 L Arterial Blood pO2 (Temp corrected) 133.5 H Arterial Blood HCO3 14.6 L Arterial Blood Base Excess -9.8 L Arterial Blood Oxygen Saturation 98.4 [place] Test ACCEPTAB Arterial Blood Gas Puncture Site Right Brachial Arterial Blood Carboxyhemoglobin 0.3 Arterial Blood Methemoglobin 0.2 Blood Gas A-a O2 Differential 191.1 H Oxyhemoglobin Percent 97.9 Total Hemoglobin 14.6 Blood Gas Temperature 37.0 Blood Gas Respiration Rate 16.0 Blood Gas Actual Respiration Rate 16 Blood Gas Modality VENT - AC FiO2 50.0 Blood Gas Tidal Volume 450.0 Blood Gas Low PEEP Setting 5.0 Blood Gas Inspiratory Pressure 25.0 Blood Gas Notified Whom [facility] [employer] Blood Gas Notified Time 07/02/2017 10:11:38 PM Test 07/03/17 04:00 07/03/17 04:10 07/03/17 07:00 07/03/17 08:10 Lactic Acid Level 1.8 White Blood Count 12.6 H Red Blood Count 4.03 L Hemoglobin 12.8 Hematocrit 39.7 Mean Corpuscular Volume 98.5 Mean Corpuscular Hemoglobin 31.8 Mean Corpuscular Hemoglobin Concent 32.2 Red Cell Distribution Width 14.0 Platelet Count 167 Mean Platelet Volume 10.7 H Neutrophils % 87.7 H Lymphocytes % 6.6 L Monocytes % 4.9 Eosinophils % 0.0 Basophils % 0.2 Nucleated Red Blood Cells % 0.0 Neutrophils # (Manual) 11 H Lymphocytes # 0.8 Monocytes # 0.6 Eosinophils # 0.0 Basophils # 0.0 Nucleated Red Blood Cells # 0.0 Prothrombin Time 17.6 H Prothrombin Time Ratio 1.4 INR International Normalized Ratio 1.44 Activated Partial Thromboplast Time 34.9 Sodium Level 139 Potassium Level 5.5 H Chloride Level 112 H Carbon Dioxide Level 16 L Anion Gap 17 H Blood Urea Nitrogen 29 H Creatinine 1.95 H Glucose Level 167 Calcium Level 9.3 Phosphorus Level 3.8 Magnesium Level 1.6 L Total Bilirubin 0.3 Direct Bilirubin 0.00 Indirect Bilirubin 0.3 Aspartate Amino Transf (AST/SGOT) 60 H Alanine Aminotransferase (ALT/SGPT) 53 Alkaline Phosphatase 91 Creatine Kinase 117 Creatine Kinase Index 12.6 Creatinine Kinase MB (Mass) 14.70 H Troponin I 5.300 *H B-Type Natriuretic Peptide 59504 H Total Protein 6.6 Albumin 3.6 Globulin 3.00 Albumin/Globulin Ratio 1.20 Triglycerides Level 245 H Cholesterol Level 118 LDL Cholesterol, Calculated 26 HDL Cholesterol 43 Cholesterol/HDL Ratio 2.7 Thyroid Stimulating Hormone (TSH) 2.160 Free Thyroxine 1.02 Blood Gas Specimen Source Blood arterial Arterial Blood Date Drawn 07/03/2017 7:35:49 AM Arterial Blood pH (Temp corrected) 7.315 L Arterial Blood pCO2 (Temp correct) 28.4 L Arterial Blood pO2 (Temp corrected) 82.0 Arterial Blood HCO3 14.1 L Arterial Blood Base Excess -10.5 L Arterial Blood Oxygen Saturation 96.0 [place] Test N/A Arterial Blood Gas Puncture Site Right Brachial Arterial Blood Carboxyhemoglobin 0.1 Arterial Blood Methemoglobin 0.3 Blood Gas A-a O2 Differential 134.5 H Oxyhemoglobin Percent 95.6 Total Hemoglobin 14.0 Blood Gas Temperature 37.0 Blood Gas Respiration Rate 16.0 Blood Gas Actual Respiration Rate 16 Blood Gas Modality VENT - AC FiO2 35.0 Blood Gas Tidal Volume 450.0 Blood Gas Low PEEP Setting 5.0 Blood Gas Notified Whom [facility] Blood Gas Notified Time 07/03/2017 7:54:58 AM Bedside Glucose 116 Medications Medications Current Medications Sodium Chloride (NS) 1,000 ml @ 75 mls/hr [id number] IV Last administered on 07/03 06:20; Admin Dose 75 MLS/HR; Start 07/02/17 at 11:51 Ondansetron HCl (Zofran Inj) 4 mg Q6H PRN IV NAUSEA AND/OR VOMITING; Start at 12:00 Acetaminophen (Tylenol Liquid) 650 mg Q6H PRN PO PAIN LEVEL 1-3 OR FEVER; Start 07/02/17 at 12:00 Acetaminophen (Tylenol Tab) 650 mg Q6H PRN PO PAIN LEVEL 1-3 OR FEVER; Start at 12:00 Morphine Sulfate (morphine) 2 mg Q4H PRN IV PAIN LEVEL 7-10; Start 07/02/17 at 12:00 Docusate Sodium (Colace) 100 mg Q12H PRN PO CONSTIPATION; Start 07/02/17 at 12: 00 Magnesium Hydroxide (Milk Of Mag) 30 ml DAILY PRN PO CONSTIPATION; Start at 12:00 Pantoprazole (Protonix Iv) 40 mg DAILY@06 IV Last administered on 07/03/17 06: 20; Admin Dose 40 MG; Start 07/03/17 at 06:00 Ferrous Sulfate (Ferrous Sulfate (Ec)) 325 mg BID PO ; Start 07/02/17 at 21:00 Bisacodyl (Dulcolax Supp) 10 mg DAILY PRN [place] CONSTIPATION; Start 07/02/17 at 12 :30 Diagnostic Test (Pha) (Accu-Chek) 1 ea 02 XX ; Start 07/03/17 at 02:00 Miscellaneous Information 1 ea NOTE XX ; Start 07/02/17 at 14:00 Glucose (Glutose) 15 gm Q15M PRN PO DECREASED GLUCOSE; Start 07/02/17 at 14:00 Glucose (Glutose) 22.5 gm Q15M PRN PO DECREASED GLUCOSE; Start 07/02/17 at 14: 00 Dextrose (D50w Syringe) 25 ml Q15M PRN IV DECREASED GLUCOSE; Start 07/02/17 at 14:00 Dextrose (D50w Syringe) 50 ml Q15M PRN IV DECREASED GLUCOSE; Start 07/02/17 at 14:00 Glucagon (Glucagen) 1 mg Q15M PRN IM DECREASED GLUCOSE; Start 07/02/17 at 14:00 Glucose (Glutose) 15 gm Q15M PRN BUCCAL DECREASED GLUCOSE; Start 07/02/17 at 14 :00 Acetaminophen 650 mg 650 mg Q4H PRN PO NON-CARDIAC PAIN LEVEL (1-3); Start at 18:00 Cefazolin Sodium (Ancef 1 Gm/50 ml (Pmx)) 50 ml @ 100 mls/hr Q8 IVPB Last administered on 07/03/17t 06:20; Admin Dose 100 MLS/HR; Start 07/02/17 at 22:00 ; Stop 07/03/17 at 14:29 Aspirin 81 mg 81 mg DAILY NGT ; Start 07/03/17 at 09:00 Dopamine HCl/ Dextrose 250 ml @ 5.655 mls/ hr TITRATE IV ; Start 07/02/17 at 14 :00 Silver Sulfadiazine (Thermazene 1% 25 Gm) 1 applic DAILY TOP ; Start 07/03/17 at 09:00 NIKKI ONEAL Jul 03, 2017 10:47
[2017-07-03] MEDS ORDERED: MAGNESIUM SULFATE 2 GM/50 ML 50 ML IVPB ONE (11:00)
[2017-07-03] MEDS: SILVER SULFADIAZINE 1% 25 GM CR TOP SCH (11:05)
--- NOTE | 2017-07-03 13:51 | RADRPT ---
Vent Rate: 60 bpm RR Interval: 0 msec MT Interval: 0 msec QRS Duration: 112 msec QT Interval: 446 msec QTC Interval: 446 msec P-R-T [place]: 0 - 124 - 66 degrees Ventricular paced Electronically Signed By: Bruce Goode [id number]
--- NOTE | 2017-07-03 13:51 | RADRPT ---
Vent Rate: 60 bpm RR Interval: 0 msec GA Interval: 0 msec QRS Duration: 114 msec QT Interval: 442 msec QTC Interval: 442 msec P-R-T [place]: 0 - 0 - -19 degrees Electronic ventricular pacemaker Electronically Signed By: Bruce Goode [id number]
[2017-07-03] MEDS ORDERED: ALBUTEROL 18 GM INHALER INH SCH (14:00)
[2017-07-03 14:49] LABS: ALBUMIN 3.6 g/dl (3.3-4.9); ALBUMIN/GLOBULIN RATIO 1.12; BILIRUBIN,INDIRECT 0.2 mg/dl (0-1.1); BILIRUBIN,TOTAL 0.2 mg/dl (0.2-1.3); CREATININE 2.34 mg/dl (0.44-1.00); MAGNESIUM 2.7 mg/dl (1.7-2.5); TOTAL PROTEIN 6.8 g/dl (6.1-8.1)
[2017-07-03 14:55] LABS: POTASSIUM 5.8 mmol/L (3.5-5.1)
[2017-07-04] VITALS (101 sets, daily range): BP systolic 77–138; BP diastolic 43–76; PULSE 60; RESP 12–24
[2017-07-04] MEDS: ACCU-CHEK XX SCH (02:00)
[2017-07-04] MEDS: IPRATROPIUM (HFA) 12.9 GM INHALER INH SCH ×4 (03:35→21:00)
[2017-07-04] MEDS: ALBUTEROL 18 GM INHALER INH SCH ×4 (03:35→21:00)
[2017-07-04] MEDS: INSULIN ASPART [NOVOLOG] 3 ML PEN SC SCH ×4 (07:35→20:44)
[2017-07-04] MEDS: DOPamine-D5W 1.6 MG/ML 250 ML IV SCH ×2 (08:02→18:07)
--- NOTE | 2017-07-04 08:05 | CONS ---
Date/Time of Note Date/Time of Note DATE: 07/04/17 TIME: 08:02 Consultation Date/Type/Reason Admit Date/Time Jul 02, 2017 at 09:58 Initial Consult Date Type of Consultation: Pulmonary/critical care Reason for Consultation s/p cardiac arreat due to asystole and [id number] at [facility] 24 HR Interval Summary Free Text/Dictation . CARDIAC ARREST DUE TO HEART BLOCK and pacer End of life in a pt pacer dependent. 2. pacemaker End of life 3. CHF 4. CARDIOMYOPATHY 5. HX CVA 6. PAFIB 7. HEART BLOCK 8. JAHUVAS WITNESS 9. RESP FAILURE Recommendations: s/p emergent pacemaker generator change. Remains on dopamine currently intubated and continue pulmonary management hyperkalemia follow morning labs elevated troponin likely secondary to cardiac arrest Subjective hx not possible: pt non-verbal, pt critical Exam/Review of Systems Vital Signs Vitals Vital Signs Date Time Temp Pulse Resp B/P Pulse Ox O2 Delivery O2 Flow Rate FiO2 07/04/17 06:45 60 16 107/59 100 07/04/17 06:30 Mechanical Ventilator 07/04/17 05:22 35 07/04/17 04:00 98.1 07/02/17 08:30 15.0 Intake and Output 07/03/17 07/03/17 07/04/17 15:00 23:00 07:00 Intake Total 1246.80 ml 873.80 ml 711.45 ml Output Total 55 ml 185 ml 240 ml Balance 1191.80 ml 688.80 ml 471.45 ml Exam intubated on sedation Respiratory: diminished breath sounds Cardiovascular: regular rate and rhythm Gastrointestinal: soft, No distended Extremities: No clubbing, No edema Neurological: other (sedated) Results Result Diagram: 07/03/17 0410 07/03/17 1400 Results 24 hrs Laboratory Tests Test 07/03/17 08:10 07/03/17 11:40 07/03/17 14:00 07/03/17 19:15 Bedside Glucose 116 114 Troponin I 3.630 *H 2.310 *H Sodium Level 137 Potassium Level 5.8 H Chloride Level 111 H Carbon Dioxide Level 17 L Anion Gap 15 Blood Urea Nitrogen 31 H Creatinine 2.34 H Glucose Level 159 Calcium Level 9.0 Magnesium Level 2.7 #H Total Bilirubin 0.2 Direct Bilirubin 0.00 Indirect Bilirubin 0.2 Aspartate Amino Transf (AST/SGOT) 45 Alanine Aminotransferase (ALT/SGPT) 35 Alkaline Phosphatase 90 Total Protein 6.8 Albumin 3.6 Globulin 3.20 Albumin/Globulin Ratio 1.12 Test 07/03/17 21:47 07/04/17 03:25 Bedside Glucose 130 Troponin I 1.550 *H Medications Medications Current Medications Sodium Chloride (NS) 1,000 ml @ 75 mls/hr [id number] IV Last administered on 07/03t 20:00; Admin Dose 75 MLS/HR; Start 07/02/17 at 11:51 Ondansetron HCl (Zofran Inj) 4 mg Q6H PRN IV NAUSEA AND/OR VOMITING; Start at 12:00 Acetaminophen (Tylenol Liquid) 650 mg Q6H PRN PO PAIN LEVEL 1-3 OR FEVER; Start 07/02/17 at 12:00 Acetaminophen (Tylenol Tab) 650 mg Q6H PRN PO PAIN LEVEL 1-3 OR FEVER; Start at 12:00 Morphine Sulfate (morphine) 2 mg Q4H PRN IV PAIN LEVEL 7-10; Start 07/02/17 at 12:00 Docusate Sodium (Colace) 100 mg Q12H PRN PO CONSTIPATION; Start 07/02/17 at 12: 00 Magnesium Hydroxide (Milk Of Mag) 30 ml DAILY PRN PO CONSTIPATION; Start at 12:00 Ferrous Sulfate (Ferrous Sulfate (Ec)) 325 mg BID PO ; Start 07/02/17 at 21:00 Bisacodyl (Dulcolax Supp) 10 mg DAILY PRN [place] CONSTIPATION; Start 07/02/17 at 12 :30 Diagnostic Test (Pha) (Accu-Chek) 1 ea 02 XX ; Start 07/03/17 at 02:00 Miscellaneous Information 1 ea NOTE XX ; Start 07/02/17 at 14:00 Glucose (Glutose) 15 gm Q15M PRN PO DECREASED GLUCOSE; Start 07/02/17 at 14:00 Glucose (Glutose) 22.5 gm Q15M PRN PO DECREASED GLUCOSE; Start 07/02/17 at 14: 00 Dextrose (D50w Syringe) 25 ml Q15M PRN IV DECREASED GLUCOSE; Start 07/02/17 at 14:00 Dextrose (D50w Syringe) 50 ml Q15M PRN IV DECREASED GLUCOSE; Start 07/02/17 at 14:00 Glucagon (Glucagen) 1 mg Q15M PRN IM DECREASED GLUCOSE; Start 07/02/17 at 14:00 Glucose (Glutose) 15 gm Q15M PRN BUCCAL DECREASED GLUCOSE; Start 07/02/17 at 14 :00 Acetaminophen (Tylenol Tab) 650 mg Q4H PRN PO NON-CARDIAC PAIN LEVEL (1-3); Start 07/02/17 at 18:00 Aspirin 81 mg 81 mg DAILY NGT ; Start 07/03/17 at 09:00 Dopamine HCl/ Dextrose 250 ml @ 5.655 mls/ hr TITRATE IV ; Start 07/02/17 at 14 :00 Silver Sulfadiazine (Thermazene 1% 25 Gm) 1 applic DAILY TOP Last administered on 07/03/17t 11:05; Admin Dose 1 APPLIC; Start 07/03/17 at 09:00 Famotidine (Pepcid Iv) 20 mg DAILY IV ; Start 07/04/17 at 09:00 SHAMA MERCEDES MD Jul 04, 2017 08:05
[2017-07-04 08:29] LABS: BASOPHILS % 0.3 % (0.0-2.0); EOSINOPHILS % 0.1 % (0.0-7.0); HEMOGLOBIN 11.4 g/dl (12.0-16.0); MEAN CORPUSCULAR HEMOGLOBIN 31.1 pg (29.0-33.0); MEAN CORPUSCULAR HGB CONC 31.7 g/dl (32.0-37.0); MEAN CORPUSCULAR VOLUME 98.4 fl (82.0-101.0); MEAN PLATELET VOLUME 10.8 fl (7.4-10.4); MONOCYTE # 0.7 10^3/ul (0.3-0.9); MONOCYTES % 7.3 % (0.0-11.0); NEUTROPHILS % 80.8 % (39.0-77.0); PLATELET COUNT 105 10^3/UL (140-415); RED BLOOD COUNT 3.66 10^6/ul (4.20-5.40); RED CELL DISTRIBUTION WIDTH 14.1 % (11.5-14.5); WHITE BLOOD COUNT 9.3 10^3/ul (4.8-10.8)
[2017-07-04] MEDS ORDERED: DEXTROSE 50% 50 ML SYRINGE IV PRN (08:30)
[2017-07-04] MEDS ORDERED: INSULIN REGULAR, HUMAN 100 UNIT/1 ML 3ML VIAL SC PRN (08:30)
[2017-07-04 08:46] LABS: ALBUMIN 3.2 g/dl (3.3-4.9); CALCIUM 8.6 mg/dl (8.4-10.2); CREATININE 3.06 mg/dl (0.44-1.00); PHOSPHORUS 4.5 mg/dl (2.5-4.9); POTASSIUM 5.3 mmol/L (3.5-5.1)
[2017-07-04] MEDS: FAMOTIDINE 20 MG INJ IV SCH (08:47)
[2017-07-04] MEDS: ASPIRIN 81 MG TAB NGT SCH (08:47)
[2017-07-04] MEDS: FERROUS SULFATE (EC) 325 MG TAB PO SCH ×2 (08:47→20:47)
[2017-07-04] MEDS: SILVER SULFADIAZINE 1% 25 GM CR TOP SCH (08:52)
[2017-07-04] MEDS ORDERED: CA GLUCONATE (GM) 10% 10ML INJ IV PRN (09:00)
--- NOTE | 2017-07-04 09:52 | PN ---
Date/Time of Note Date/Time of Note DATE: 07/04/17 TIME: 09:46 Assessment/Plan VTE Prophylaxis VTE Prophylaxis Intervention: SCD's Lines/Catheters IV Catheter Type (from Nrs): Peripheral IV Central line still needed: No Urinary Cath still in place: Yes Reason Cath still needed: skin wounds contaminated by urine Assessment/Plan Assessment/Plan 86-year-old female with: 1. 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 Pacemaker changed emergently. Patient admitted to intensive care unit, on dopamine drip, which is being weaned off. 2D echocardiogram reveals EF of 25%. Will attempt spontaneous breathing trials with the goal of extubation. 2. Hyperkalemia secondary to renal failure secondary to ATN; Will give lasix 20 mg IVP; Renal consult with Dr. Villarreal pending. UOP remains low despite IVF bolus yesterday. 3. Acute kidney injury versus chronic kidney disease with acute injury: Creatinine increased to 3.04 and UOP remains 30 cc/hr or so. Will give lasix. Intravascularly volume depleted with likely patient with ATN given episodes of cardiac arrest, gentle IV fluid hydration with normal saline 75 cc an hour, monitor volume status. 5. Elevated lactate: Postcardiac arrest, continue IV fluids, recheck/trend lactate. 6. Hyperglycemia: No reported history of diabetes mellitus, check hemoglobin A1c, sliding scale insulin. 7. Thrombocytopenia: will d/c all heparin flushes/products and monitor. Prophylaxis: SCDs for DVT prophylaxis, of note patient seems to have been on Xarelto based on medication reconciliation, Protonix for GI prophylaxis. Subjective 24 Hr Interval Summary Free Text/Dictation Intubated, but awake and alert. Complains of belching/epigastric discomfort. Granddaughter at the bedside. Subjective hx not possible: pt non-verbal Exam/Review of Systems Vital Signs Vitals Vital Signs Date Time Temp Pulse Resp B/P Pulse Ox O2 Delivery O2 Flow Rate FiO2 07/04/17 08:00 60 07/04/17 06:45 16 107/59 100 07/04/17 06:30 Mechanical Ventilator 07/04/17 05:22 35 07/04/17 04:00 98.1 07/02/17 08:30 15.0 Intake and Output 07/03/17 07/03/17 07/04/17 15:00 23:00 07:00 Intake Total 1246.80 ml 873.80 ml 711.45 ml Output Total 55 ml 185 ml 240 ml Balance 1191.80 ml 688.80 ml 471.45 ml Exam Constitutional: alert, non-verbal Head: normocephalic ENMT: nl external ears & nose Neck: supple Respiratory: other (coarse breath sounds) Cardiovascular: regular rate and rhythm Gastrointestinal: soft Extremities: edema Results Result Diagram: 07/04/17 0810 07/04/17 0810 Results 24 hrs Laboratory Tests Test 07/03/17 11:40 07/03/17 14:00 07/03/17 19:15 07/03/17 21:47 Bedside Glucose 114 130 Troponin I 3.630 *H 2.310 *H Sodium Level 137 Potassium Level 5.8 H Chloride Level 111 H Carbon Dioxide Level 17 L Anion Gap 15 Blood Urea Nitrogen 31 H Creatinine 2.34 H Glucose Level 159 Calcium Level 9.0 Magnesium Level 2.7 #H Total Bilirubin 0.2 Direct Bilirubin 0.00 Indirect Bilirubin 0.2 Aspartate Amino Transf (AST/SGOT) 45 Alanine Aminotransferase (ALT/SGPT) 35 Alkaline Phosphatase 90 Total Protein 6.8 Albumin 3.6 Globulin 3.20 Albumin/Globulin Ratio 1.12 Test 07/04/17 03:25 07/04/17 08:10 07/04/17 08:37 Troponin I 1.550 *H White Blood Count 9.3 # Red Blood Count 3.66 L Hemoglobin 11.4 L Hematocrit 36.0 L Mean Corpuscular Volume 98.4 Mean Corpuscular Hemoglobin 31.1 Mean Corpuscular Hemoglobin Concent 31.7 L Red Cell Distribution Width 14.1 Platelet Count 105 #L Mean Platelet Volume 10.8 H Neutrophils % 80.8 H Lymphocytes % 11.0 L Monocytes % 7.3 Eosinophils % 0.1 Basophils % 0.3 Nucleated Red Blood Cells % 0.0 Neutrophils # (Manual) 7 Lymphocytes # 1.0 Monocytes # 0.7 Eosinophils # 0.0 Basophils # 0.0 Nucleated Red Blood Cells # 0.0 Sodium Level 137 Potassium Level 5.3 H Chloride Level 111 H Carbon Dioxide Level 15 L Anion Gap 16 Blood Urea Nitrogen 38 H Creatinine 3.06 H Glucose Level 131 Calcium Level 8.6 Phosphorus Level 4.5 Albumin 3.2 L Bedside Glucose 102 Medications Medications Current Medications Sodium Chloride (NS) 1,000 ml @ 75 mls/hr [id number] IV Last administered on 07/03t 20:00; Admin Dose 75 MLS/HR; Start 07/02/17 at 11:51 Ondansetron HCl (Zofran Inj) 4 mg Q6H PRN IV NAUSEA AND/OR VOMITING; Start at 12:00 Acetaminophen (Tylenol Liquid) 650 mg Q6H PRN PO PAIN LEVEL 1-3 OR FEVER; Start 07/02/17 at 12:00 Acetaminophen (Tylenol Tab) 650 mg Q6H PRN PO PAIN LEVEL 1-3 OR FEVER; Start at 12:00 Morphine Sulfate (morphine) 2 mg Q4H PRN IV PAIN LEVEL 7-10; Start 07/02/17 at 12:00 Docusate Sodium (Colace) 100 mg Q12H PRN PO CONSTIPATION; Start 07/02/17 at 12: 00 Magnesium Hydroxide (Milk Of Mag) 30 ml DAILY PRN PO CONSTIPATION; Start at 12:00 Ferrous Sulfate (Ferrous Sulfate (Ec)) 325 mg BID PO ; Start 07/02/17 at 21:00 Bisacodyl (Dulcolax Supp) 10 mg DAILY PRN [place] CONSTIPATION; Start 07/02/17 at 12 :30 Diagnostic Test (Pha) (Accu-Chek) 1 ea 02 XX ; Start 07/03/17 at 02:00 Miscellaneous Information 1 ea NOTE XX ; Start 07/02/17 at 14:00 Glucose (Glutose) 15 gm Q15M PRN PO DECREASED GLUCOSE; Start 07/02/17 at 14:00 Glucose (Glutose) 22.5 gm Q15M PRN PO DECREASED GLUCOSE; Start 07/02/17 at 14: 00 Dextrose (D50w Syringe) 25 ml Q15M PRN IV DECREASED GLUCOSE; Start 07/02/17 at 14:00 Dextrose (D50w Syringe) 50 ml Q15M PRN IV DECREASED GLUCOSE; Start 07/02/17 at 14:00 Glucagon (Glucagen) 1 mg Q15M PRN IM DECREASED GLUCOSE; Start 07/02/17 at 14:00 Glucose (Glutose) 15 gm Q15M PRN BUCCAL DECREASED GLUCOSE; Start 07/02/17 at 14 :00 Acetaminophen (Tylenol Tab) 650 mg Q4H PRN PO NON-CARDIAC PAIN LEVEL (1-3); Start 07/02/17 at 18:00 Aspirin 81 mg 81 mg DAILY NGT ; Start 07/03/17 at 09:00 Dopamine HCl/ Dextrose 250 ml @ 5.655 mls/ hr TITRATE IV Last administered on 07/04/17 08:02; Admin Dose 39.585 MLS/HR; Start 07/02/17 at 14:00 Silver Sulfadiazine (Thermazene 1% 25 Gm) 1 applic DAILY TOP Last administered on 07/04/17 08:52; Admin Dose 1 APPLIC; Start 07/03/17 at 09:00 Famotidine (Pepcid Iv) 20 mg DAILY IV Last administered on 07/04/17 08:47; Admin Dose 20 MG; Start 07/04/17 at 09:00 Dextrose (D50w Syringe) 50 ml ONCE PRN IV K+ GREATER THAN 5.8; Start 07/04/17 at 08:30; Stop 07/04/17 at 23:59 Insulin Human Regular (Humulin R) 10 unit ONCE PRN SC K+ GREATER THAN 5.8; Start 07/04/17 at 08:30; Stop 07/04/17 at 23:59 Calcium Gluconate (Ca Gluc) 1 gm ONCE PRN IV K+ GRETAER THAN 5.8; Start at 09:00; Stop 07/05/17 at 23:59 YVETTE BLANTON MD Jul 04, 2017 09:52
--- NOTE | 2017-07-04 09:55 | CONS ---
Date/Time of Note Date/Time of Note DATE: 07/04/17 TIME: 09:51 Assessment/Plan Assessment/Plan Additional Assessment/Plan Ventilator setting; AC of 16, tidal volume 450, PEEP of 5, 45% FiO2. Patient currently on dopamine at 14 mics per kilogram per minute. Assessment and recommendations; 1. Patient admitted with syncopal episode which was attributed to pacemaker malfunction status post pacemaker replacement. 2. Patient failed a weaning trial from ventilator yesterday despite having a totally clear chest x-ray, the findings are likely consistent with possibly underlying coronary artery disease. 3. Background of chronic renal failure with progressively increasing serum creatinine. 4. Mild hypotension. For sedation again. Was a patient is off sedation she will be evaluated for possible weaning from ventilator. Meanwhile obtain a nephrology consult. Consultation Date/Type/Reason Admit Date/Time Jul 02, 2017 at 09:58 Type of Consultation: Pulmonary/critical care 24 HR Interval Summary Free Text/Dictation Patient's condition remains critical. Patient failed a weaning trial from ventilator yesterday, patient was put on CPAP mode for at least 45 minutes then started complaining of chest pain was diaphoretic and also became tachypneic and tachycardic requiring her to be put back on full assist control mode and patient had to be re-sedated. Patient has remained hemodynamically stable overnight. No untoward events reported. General exam; elderly woman, orally intubated, sedated, currently in no distress. Exam/Review of Systems Vital Signs Vitals Vital Signs Date Time Temp Pulse Resp B/P Pulse Ox O2 Delivery O2 Flow Rate FiO2 07/04/17 08:00 60 07/04/17 06:45 16 107/59 100 07/04/17 06:30 Mechanical Ventilator 07/04/17 05:22 35 07/04/17 04:00 98.1 07/02/17 08:30 15.0 Intake and Output 07/03/17 07/03/17 07/04/17 15:00 23:00 07:00 Intake Total 1246.80 ml 873.80 ml 711.45 ml Output Total 55 ml 185 ml 240 ml Balance 1191.80 ml 688.80 ml 471.45 ml Exam HEENT exam; supple neck, no JVD. No lymphadenopathy. Midline trachea. No thyromegaly. Orally intubated. Patient has fair dentition. Pupils are equal and reactive to light bilaterally. Chest exam; clear to auscultation. S1-S2 audible, no murmurs. Regular rhythm. There is a pacemaker in the left chest wall. Abdomen exam; soft, no organomegaly. Bowel sounds audible. Nondistended. Extremity exam; no peripheral edema. Pulses 1+ bilaterally. [employer] exam; patient is sedated. Results Result Diagram: 07/04/17 0810 07/04/17 0810 Results 24 hrs Laboratory Tests Test 07/03/17 11:40 07/03/17 14:00 07/03/17 19:15 07/03/17 21:47 Bedside Glucose 114 130 Troponin I 3.630 *H 2.310 *H Sodium Level 137 Potassium Level 5.8 H Chloride Level 111 H Carbon Dioxide Level 17 L Anion Gap 15 Blood Urea Nitrogen 31 H Creatinine 2.34 H Glucose Level 159 Calcium Level 9.0 Magnesium Level 2.7 #H Total Bilirubin 0.2 Direct Bilirubin 0.00 Indirect Bilirubin 0.2 Aspartate Amino Transf (AST/SGOT) 45 Alanine Aminotransferase (ALT/SGPT) 35 Alkaline Phosphatase 90 Total Protein 6.8 Albumin 3.6 Globulin 3.20 Albumin/Globulin Ratio 1.12 Test 07/04/17 03:25 07/04/17 08:10 07/04/17 08:37 Troponin I 1.550 *H White Blood Count 9.3 # Red Blood Count 3.66 L Hemoglobin 11.4 L Hematocrit 36.0 L Mean Corpuscular Volume 98.4 Mean Corpuscular Hemoglobin 31.1 Mean Corpuscular Hemoglobin Concent 31.7 L Red Cell Distribution Width 14.1 Platelet Count 105 #L Mean Platelet Volume 10.8 H Neutrophils % 80.8 H Lymphocytes % 11.0 L Monocytes % 7.3 Eosinophils % 0.1 Basophils % 0.3 Nucleated Red Blood Cells % 0.0 Neutrophils # (Manual) 7 Lymphocytes # 1.0 Monocytes # 0.7 Eosinophils # 0.0 Basophils # 0.0 Nucleated Red Blood Cells # 0.0 Sodium Level 137 Potassium Level 5.3 H Chloride Level 111 H Carbon Dioxide Level 15 L Anion Gap 16 Blood Urea Nitrogen 38 H Creatinine 3.06 H Glucose Level 131 Calcium Level 8.6 Phosphorus Level 4.5 Albumin 3.2 L Bedside Glucose 102 Medications Medications Current Medications Sodium Chloride (NS) 1,000 ml @ 75 mls/hr [id number] IV Last administered on 07/03t 20:00; Admin Dose 75 MLS/HR; Start 07/02/17 at 11:51 Ondansetron HCl (Zofran Inj) 4 mg Q6H PRN IV NAUSEA AND/OR VOMITING; Start at 12:00 Acetaminophen (Tylenol Liquid) 650 mg Q6H PRN PO PAIN LEVEL 1-3 OR FEVER; Start 07/02/17 at 12:00 Acetaminophen (Tylenol Tab) 650 mg Q6H PRN PO PAIN LEVEL 1-3 OR FEVER; Start at 12:00 Morphine Sulfate (morphine) 2 mg Q4H PRN IV PAIN LEVEL 7-10; Start 07/02/17 at 12:00 Docusate Sodium (Colace) 100 mg Q12H PRN PO CONSTIPATION; Start 07/02/17 at 12: 00 Magnesium Hydroxide (Milk Of Mag) 30 ml DAILY PRN PO CONSTIPATION; Start at 12:00 Ferrous Sulfate (Ferrous Sulfate (Ec)) 325 mg BID PO ; Start 07/02/17 at 21:00 Bisacodyl (Dulcolax Supp) 10 mg DAILY PRN [place] CONSTIPATION; Start 07/02/17 at 12 :30 Diagnostic Test (Pha) (Accu-Chek) 1 ea 02 XX ; Start 07/03/17 at 02:00 Miscellaneous Information 1 ea NOTE XX ; Start 07/02/17 at 14:00 Glucose (Glutose) 15 gm Q15M PRN PO DECREASED GLUCOSE; Start 07/02/17 at 14:00 Glucose (Glutose) 22.5 gm Q15M PRN PO DECREASED GLUCOSE; Start 07/02/17 at 14: 00 Dextrose (D50w Syringe) 25 ml Q15M PRN IV DECREASED GLUCOSE; Start 07/02/17 at 14:00 Dextrose (D50w Syringe) 50 ml Q15M PRN IV DECREASED GLUCOSE; Start 07/02/17 at 14:00 Glucagon (Glucagen) 1 mg Q15M PRN IM DECREASED GLUCOSE; Start 07/02/17 at 14:00 Glucose (Glutose) 15 gm Q15M PRN BUCCAL DECREASED GLUCOSE; Start 07/02/17 at 14 :00 Acetaminophen (Tylenol Tab) 650 mg Q4H PRN PO NON-CARDIAC PAIN LEVEL (1-3); Start 07/02/17 at 18:00 Aspirin 81 mg 81 mg DAILY NGT ; Start 07/03/17 at 09:00 Dopamine HCl/ Dextrose 250 ml @ 5.655 mls/ hr TITRATE IV Last administered on 07/04/17 08:02; Admin Dose 39.585 MLS/HR; Start 07/02/17 at 14:00 Silver Sulfadiazine (Thermazene 1% 25 Gm) 1 applic DAILY TOP Last administered on 07/04/17 08:52; Admin Dose 1 APPLIC; Start 07/03/17 at 09:00 Famotidine (Pepcid Iv) 20 mg DAILY IV Last administered on 07/04/17 08:47; Admin Dose 20 MG; Start 07/04/17 at 09:00 Dextrose (D50w Syringe) 50 ml ONCE PRN IV K+ GREATER THAN 5.8; Start 07/04/17 at 08:30; Stop 07/04/17 at 23:59 Insulin Human Regular (Humulin R) 10 unit ONCE PRN SC K+ GREATER THAN 5.8; Start 07/04/17 at 08:30; Stop 07/04/17 at 23:59 Calcium Gluconate (Ca Gluc) 1 gm ONCE PRN IV K+ GRETAER THAN 5.8; Start at 09:00; Stop 07/05/17 at 23:59 Furosemide (Lasix) 20 mg ONCE ONCE IV ; Start 07/04/17 at 10:00; Stop 07/04/17 at 10:01; Status NIKKI DIXON Jul 04, 2017 09:55
[2017-07-04] MEDS ORDERED: FUROSEMIDE 20 MG INJ IV ONE (10:00)
[2017-07-04 11:48] LABS: AADO2 Arterial 101.4 mmHg (7.0-24.0); Allen Test ACCEPTAB; Arterial Base Excess -13.3 mmol/L (-3.0-3); Arterial COHb 0.3 % (0.0-3.0); Arterial HCO3 13.1 mmol/L (22.0-26.0); Arterial MetHb 0.2 % (0.0-1.5); Arterial Total Hemglobin 13.2 g/dl (12.0-18.0); Blood Gas PS 10; MODE VENT - CPAP
[2017-07-04] MEDS ORDERED: NA BICARBONATE 8.4% 50 ML SYG ONE (13:08)
[2017-07-04] MEDS ORDERED: NA BICARBONATE 8.4% 50 ML SYG IV ONE (13:30)
--- NOTE | 2017-07-04 13:54 | CONS ---
Date/Time of Note Date/Time of Note DATE: 07/04/17 TIME: 13:54 Consultation Date/Type/Reason Admit Date/Time Jul 02, 2017 at 09:58 Date of Consultation: Jul 04, 2017 Type of Consultation: NEPHROLOGY Reason for Consultation acute kidney injury, severe acidosis Referring Provider: JACQUE MARTINEZ Social History Alcohol Use: none Smoking Status: Never smoker Drug Use: none Exam/Review of Systems Vital Signs Vitals Vital Signs Date Time Temp Pulse Resp B/P Pulse Ox O2 Delivery O2 Flow Rate FiO2 07/04/17 12:00 98.1 21 120/63 CPAP Mechanical Ventilator 07/04/17 11:00 60 100 07/04/17 05:22 35 07/02/17 08:30 15.0 Intake and Output 07/03/17 07/03/17 07/04/17 15:00 23:00 07:00 Intake Total 1246.80 ml 873.80 ml 711.45 ml Output Total 55 ml 185 ml 280 ml Balance 1191.80 ml 688.80 ml 431.45 ml Results Result Diagram: 07/04/17 0810 07/04/17 0810 Results 24 hrs Laboratory Tests Test 07/03/17 14:00 07/03/17 19:15 07/03/17 21:47 07/04/17 03:25 Sodium Level 137 Potassium Level 5.8 H Chloride Level 111 H Carbon Dioxide Level 17 L Anion Gap 15 Blood Urea Nitrogen 31 H Creatinine 2.34 H Glucose Level 159 Calcium Level 9.0 Magnesium Level 2.7 #H Total Bilirubin 0.2 Direct Bilirubin 0.00 Indirect Bilirubin 0.2 Aspartate Amino Transf (AST/SGOT) 45 Alanine Aminotransferase (ALT/SGPT) 35 Alkaline Phosphatase 90 Total Protein 6.8 Albumin 3.6 Globulin 3.20 Albumin/Globulin Ratio 1.12 Troponin I 2.310 *H 1.550 *H Bedside Glucose 130 Test 07/04/17 08:10 07/04/17 08:37 07/04/17 11:40 White Blood Count 9.3 # Red Blood Count 3.66 L Hemoglobin 11.4 L Hematocrit 36.0 L Mean Corpuscular Volume 98.4 Mean Corpuscular Hemoglobin 31.1 Mean Corpuscular Hemoglobin Concent 31.7 L Red Cell Distribution Width 14.1 Platelet Count 105 #L Mean Platelet Volume 10.8 H Neutrophils % 80.8 H Lymphocytes % 11.0 L Monocytes % 7.3 Eosinophils % 0.1 Basophils % 0.3 Nucleated Red Blood Cells % 0.0 Neutrophils # (Manual) 7 Lymphocytes # 1.0 Monocytes # 0.7 Eosinophils # 0.0 Basophils # 0.0 Nucleated Red Blood Cells # 0.0 Sodium Level 137 Potassium Level 5.3 H Chloride Level 111 H Carbon Dioxide Level 15 L Anion Gap 16 Blood Urea Nitrogen 38 H Creatinine 3.06 H Glucose Level 131 Calcium Level 8.6 Phosphorus Level 4.5 Albumin 3.2 L Bedside Glucose 102 124 Blood Gas Specimen Source Blood arterial Arterial Blood Date Drawn 07/04/2017 11:40:07 AM Arterial Blood pH (Temp corrected) 7.227 *L Arterial Blood pCO2 (Temp correct) 32.2 L Arterial Blood pO2 (Temp corrected) 110.7 H Arterial Blood HCO3 13.1 L Arterial Blood Base Excess -13.3 L Arterial Blood Oxygen Saturation 97.5 [place] Test ACCEPTAB Arterial Blood Gas Puncture Site Right Radial Arterial Blood Carboxyhemoglobin 0.3 Arterial Blood Methemoglobin 0.2 Blood Gas A-a O2 Differential 101.4 H Oxyhemoglobin Percent 97.0 Total Hemoglobin 13.2 Blood Gas Temperature 37.0 Blood Gas Actual Respiration Rate 19 Blood Gas Modality VENT - CPAP FiO2 35.0 Blood Gas Low PEEP Setting 5.0 Blood Gas Pressure Support 10 Blood Gas Critical Value Read Back FELICIA RN Blood Gas Notified Whom TM Blood Gas Notified Time 07/04/2017 11:47:53 AM Medications Medications Current Medications Ondansetron HCl (Zofran Inj) 4 mg Q6H PRN IV NAUSEA AND/OR VOMITING; Start at 12:00 Acetaminophen (Tylenol Liquid) 650 mg Q6H PRN PO PAIN LEVEL 1-3 OR FEVER; Start 07/02/17 at 12:00 Acetaminophen (Tylenol Tab) 650 mg Q6H PRN PO PAIN LEVEL 1-3 OR FEVER; Start at 12:00 Morphine Sulfate (morphine) 2 mg Q4H PRN IV PAIN LEVEL 7-10; Start 07/02/17 at 12:00 Docusate Sodium (Colace) 100 mg Q12H PRN PO CONSTIPATION; Start 07/02/17 at 12: 00 Magnesium Hydroxide (Milk Of Mag) 30 ml DAILY PRN PO CONSTIPATION; Start at 12:00 Ferrous Sulfate (Ferrous Sulfate (Ec)) 325 mg BID PO ; Start 07/02/17 at 21:00 Bisacodyl (Dulcolax Supp) 10 mg DAILY PRN [place] CONSTIPATION; Start 07/02/17 at 12 :30 Diagnostic Test (Pha) (Accu-Chek) 1 ea 02 XX ; Start 07/03/17 at 02:00 Miscellaneous Information 1 ea NOTE XX ; Start 07/02/17 at 14:00 Glucose (Glutose) 15 gm Q15M PRN PO DECREASED GLUCOSE; Start 07/02/17 at 14:00 Glucose (Glutose) 22.5 gm Q15M PRN PO DECREASED GLUCOSE; Start 07/02/17 at 14: 00 Dextrose (D50w Syringe) 25 ml Q15M PRN IV DECREASED GLUCOSE; Start 07/02/17 at 14:00 Dextrose (D50w Syringe) 50 ml Q15M PRN IV DECREASED GLUCOSE; Start 07/02/17 at 14:00 Glucagon (Glucagen) 1 mg Q15M PRN IM DECREASED GLUCOSE; Start 07/02/17 at 14:00 Glucose (Glutose) 15 gm Q15M PRN BUCCAL DECREASED GLUCOSE; Start 07/02/17 at 14 :00 Acetaminophen (Tylenol Tab) 650 mg Q4H PRN PO NON-CARDIAC PAIN LEVEL (1-3); Start 07/02/17 at 18:00 Aspirin 81 mg 81 mg DAILY NGT ; Start 07/03/17 at 09:00 Dopamine HCl/ Dextrose 250 ml @ 5.655 mls/ hr TITRATE IV Last administered on 07/04/17 08:02; Admin Dose 39.585 MLS/HR; Start 07/02/17 at 14:00 Silver Sulfadiazine (Thermazene 1% 25 Gm) 1 applic DAILY TOP Last administered on 07/04/17 08:52; Admin Dose 1 APPLIC; Start 07/03/17 at 09:00 Famotidine (Pepcid Iv) 20 mg DAILY IV Last administered on 07/04/17 08:47; Admin Dose 20 MG; Start 07/04/17 at 09:00 Dextrose (D50w Syringe) 50 ml ONCE PRN IV K+ GREATER THAN 5.8; Start 07/04/17 at 08:30; Stop 07/04/17 at 23:59 Insulin Human Regular (Humulin R) 10 unit ONCE PRN SC K+ GREATER THAN 5.8; Start 07/04/17 at 08:30; Stop 07/04/17 at 23:59 Calcium Gluconate 1 gm 1 gm ONCE PRN IV K+ GRETAER THAN 5.8; Start 07/04/17 at 09:00; Stop 07/05/17 at 23:59 Sodium Bicarbonate/ Dextrose (Na Bicarb/D5W) 1,100 ml @ 80 mls/hr [id number] IV ; Start 07/04/17 at 15:00 JULIANNA PAZ MD Jul 04, 2017 13:54
[2017-07-04] MEDS: SODIUM BICARBONATE (IV ADD) 100 MEQ in DEXTROSE 5% 1,000 ML IV SCH (15:54)
[2017-07-04] MEDS: FENTAnyl (DRIP) 1000 mcg/100mL 100 ML IV SCH (15:58)
--- NOTE | 2017-07-04 16:26 | CONS ---
Date/Time of Note Date/Time of Note DATE: 07/04/17 TIME: 16:15 Assessment/Plan Assessment/Plan Additional Assessment/Plan 1/s.p Cardiac arrest 2. Cardiogenic shock 3. Acute kidney injury due to ischemic ATN , Acute hyperkalemia, Severe metabolic acidosis 4. Ischemic cardiomyopathy with low EF 5. Hypertension 6. Hyperlipidemia 7. h/o sick sinus syndrome, h/o paroxysmal atrial fibrillatin s/p pacemaker placement Plan: D/c current IVF Start sodium bicarbonate 100meQ with D5W at 80 cc/hr urine studies including urine sodium, urine prot/cr ratio, urine eosinophils, Urine uric acid, CK total , Uric acid Renal US has been ordered. pt doing well on vent, possible extubation pulmonary has been following on patient, Consultation Date/Type/Reason Admit Date/Time Jul 02, 2017 at 09:58 Date of Consultation: Jul 04, 2017 Type of Consultation: NEPHROLOGY Reason for Consultation acute kidney injury, Hyperkalemia, severe metabolic acidosis Referring Provider: YVETTE BLANTON MD Hx of Present Illness 86-year-old female with a reported history of likely cardiomyopathy, sick sinus syndrome status post pacemaker and likely pacemaker dependent, hypertension, previous strokes 2 latest one a year ago and fairly independent and active at baseline who presented today to the emergency department with reported episode of syncope and acute onset of nausea and vomiting per family. H /o Pacemaker placement in 2000. In the emergency room she became unresponsive, requiring external pacemaker placement and initiation of dopamine inotropic support. In addition, it appears the patient had subsequent ventricular tachycardia requiring defibrillation and initiation of amiodarone 300 mg IV. Subjective hx not possible: pt non-verbal, other (Intubatd on ventilator ) Past Medical History Medical History: high cholesterol, hypertension, other (cardiomopathy, sick sinus syndrome ) Past Surgical History Past Surgical Hx: other (pacemaker placement, ORIF ) Family History Significant Family History: no pertinent family hx Social History Alcohol Use: none Smoking Status: Never smoker Drug Use: none Exam/Review of Systems Vital Signs Vitals Vital Signs Date Time Temp Pulse Resp B/P Pulse Ox O2 Delivery O2 Flow Rate FiO2 07/04/17 15:00 60 16 114/60 100 CPAP 07/04/17 12:00 98.1 07/04/17 09:20 35 07/02/17 08:30 15.0 Intake and Output 807/03/17 07/04/17 15:00 23:00 07:00 Intake Total 1246.80 ml 873.80 ml 742.95 ml Output Total 55 ml 185 ml 280 ml Balance 1191.80 ml 688.80 ml 462.95 ml Exam Constitutional: intubated, sedated Respiratory: diminished breath sounds, other (On mechanical ventilation) Cardiovascular: other (Externally paced) Gastrointestinal: non-tender, soft Musculoskeletal: nl extremities to inspection, other (No edema, clubbing or cyanosis) Extremities: normal pulses Neurological: sedated Results Result Diagram: 07/04/17 0810 07/04/17 0810 Results 24 hrs Laboratory Tests Test 07/03/17 19:15 07/03/17 21:47 07/04/17 03:25 07/04/17 08:10 Troponin I 2.310 *H 1.550 *H Bedside Glucose 130 White Blood Count 9.3 # Red Blood Count 3.66 L Hemoglobin 11.4 L Hematocrit 36.0 L Mean Corpuscular Volume 98.4 Mean Corpuscular Hemoglobin 31.1 Mean Corpuscular Hemoglobin Concent 31.7 L Red Cell Distribution Width 14.1 Platelet Count 105 #L Mean Platelet Volume 10.8 H Neutrophils % 80.8 H Lymphocytes % 11.0 L Monocytes % 7.3 Eosinophils % 0.1 Basophils % 0.3 Nucleated Red Blood Cells % 0.0 Neutrophils # (Manual) 7 Lymphocytes # 1.0 Monocytes # 0.7 Eosinophils # 0.0 Basophils # 0.0 Nucleated Red Blood Cells # 0.0 Sodium Level 137 Potassium Level 5.3 H Chloride Level 111 H Carbon Dioxide Level 15 L Anion Gap 16 Blood Urea Nitrogen 38 H Creatinine 3.06 H Glucose Level 131 Calcium Level 8.6 Phosphorus Level 4.5 Albumin 3.2 L Test 07/04/17 08:37 07/04/17 11:40 Bedside Glucose 102 124 Blood Gas Specimen Source Blood arterial Arterial Blood Date Drawn 07/04/2017 11:40:07 AM Arterial Blood pH (Temp corrected) 7.227 *L Arterial Blood pCO2 (Temp correct) 32.2 L Arterial Blood pO2 (Temp corrected) 110.7 H Arterial Blood HCO3 13.1 L Arterial Blood Base Excess -13.3 L Arterial Blood Oxygen Saturation 97.5 [place] Test ACCEPTAB Arterial Blood Gas Puncture Site Right Radial Arterial Blood Carboxyhemoglobin 0.3 Arterial Blood Methemoglobin 0.2 Blood Gas A-a O2 Differential 101.4 H Oxyhemoglobin Percent 97.0 Total Hemoglobin 13.2 Blood Gas Temperature 37.0 Blood Gas Actual Respiration Rate 19 Blood Gas Modality VENT - CPAP FiO2 35.0 Blood Gas Low PEEP Setting 5.0 Blood Gas Pressure Support 10 Blood Gas Critical Value Read Back FELICIA RN Blood Gas Notified Whom TM Blood Gas Notified Time 07/04/2017 11:47:53 AM Medications Medications Current Medications Ondansetron HCl (Zofran Inj) 4 mg Q6H PRN IV NAUSEA AND/OR VOMITING; Start at 12:00 Acetaminophen (Tylenol Liquid) 650 mg Q6H PRN PO PAIN LEVEL 1-3 OR FEVER; Start 07/02/17 at 12:00 Acetaminophen (Tylenol Tab) 650 mg Q6H PRN PO PAIN LEVEL 1-3 OR FEVER; Start at 12:00 Morphine Sulfate (morphine) 2 mg Q4H PRN IV PAIN LEVEL 7-10; Start 07/02/17 at 12:00 Docusate Sodium (Colace) 100 mg Q12H PRN PO CONSTIPATION; Start 07/02/17 at 12: 00 Magnesium Hydroxide (Milk Of Mag) 30 ml DAILY PRN PO CONSTIPATION; Start at 12:00 Ferrous Sulfate (Ferrous Sulfate (Ec)) 325 mg BID PO ; Start 07/02/17 at 21:00 Bisacodyl (Dulcolax Supp) 10 mg DAILY PRN [place] CONSTIPATION; Start 07/02/17 at 12 :30 Diagnostic Test (Pha) (Accu-Chek) 1 ea 02 XX ; Start 07/03/17 at 02:00 Miscellaneous Information 1 ea NOTE XX ; Start 07/02/17 at 14:00 Glucose (Glutose) 15 gm Q15M PRN PO DECREASED GLUCOSE; Start 07/02/17 at 14:00 Glucose (Glutose) 22.5 gm Q15M PRN PO DECREASED GLUCOSE; Start 07/02/17 at 14: 00 Dextrose (D50w Syringe) 25 ml Q15M PRN IV DECREASED GLUCOSE; Start 07/02/17 at 14:00 Dextrose (D50w Syringe) 50 ml Q15M PRN IV DECREASED GLUCOSE; Start 07/02/17 at 14:00 Glucagon (Glucagen) 1 mg Q15M PRN IM DECREASED GLUCOSE; Start 07/02/17 at 14:00 Glucose (Glutose) 15 gm Q15M PRN BUCCAL DECREASED GLUCOSE; Start 07/02/17 at 14 :00 Acetaminophen (Tylenol Tab) 650 mg Q4H PRN PO NON-CARDIAC PAIN LEVEL (1-3); Start 07/02/17 at 18:00 Aspirin 81 mg 81 mg DAILY NGT ; Start 07/03/17 at 09:00 Dopamine HCl/ Dextrose 250 ml @ 5.655 mls/ hr TITRATE IV Last administered on 07/04/17 08:02; Admin Dose 39.585 MLS/HR; Start 07/02/17 at 14:00 Silver Sulfadiazine (Thermazene 1% 25 Gm) 1 applic DAILY TOP Last administered on 07/04/17 08:52; Admin Dose 1 APPLIC; Start 07/03/17 at 09:00 Famotidine (Pepcid Iv) 20 mg DAILY IV Last administered on 07/04/17 08:47; Admin Dose 20 MG; Start 07/04/17 at 09:00 Dextrose (D50w Syringe) 50 ml ONCE PRN IV K+ GREATER THAN 5.8; Start 07/04/17 at 08:30; Stop 07/04/17 at 23:59 Insulin Human Regular (Humulin R) 10 unit ONCE PRN SC K+ GREATER THAN 5.8; Start 07/04/17 at 08:30; Stop 07/04/17 at 23:59 Calcium Gluconate 1 gm 1 gm ONCE PRN IV K+ GRETAER THAN 5.8; Start 07/04/17 at 09:00; Stop 07/05/17 at 23:59 Sodium Bicarbonate/ Dextrose (Na Bicarb/D5W) 1,100 ml @ 50 mls/hr Q22H IV Last administered on 07/04/17 15:54; Admin Dose 50 MLS/HR; Start 07/04/17 at 15 :00 JULIANNA PAZ MD Jul 04, 2017 16:26
[2017-07-04 17:54] LABS: PROTEIN/CREAT RATIO 2.18 RATIO
[2017-07-05] VITALS (94 sets, daily range): BP systolic 74–149; BP diastolic 46–102; PULSE 59–68; RESP 3–27
[2017-07-05] MEDS: ALBUTEROL 18 GM INHALER INH SCH ×4 (01:15→18:10)
[2017-07-05] MEDS: IPRATROPIUM (HFA) 12.9 GM INHALER INH SCH ×3 (01:16→13:36)
[2017-07-05] MEDS: ACCU-CHEK XX SCH (02:00)
[2017-07-05 04:50] LABS: ABNORMAL IP MESSAGE 1; BASOPHILS % 0.5 % (0.0-2.0); EOSINOPHILS % 0.3 % (0.0-7.0); HEMATOCRIT 30.7 % (37.0-47.0); LYMPHOCYTES # 0.7 10^3/ul (0.8-2.9); LYMPHOCYTES % 11.9 % (15.0-51.0); MEAN CORPUSCULAR HEMOGLOBIN 31.4 pg (29.0-33.0); MEAN CORPUSCULAR HGB CONC 32.6 g/dl (32.0-37.0); MEAN CORPUSCULAR VOLUME 96.5 fl (82.0-101.0); MONOCYTE # 0.5 10^3/ul (0.3-0.9); NEUTROPHILS % 78.8 % (39.0-77.0); PLATELET COUNT 90 10^3/UL (140-415); RED BLOOD COUNT 3.18 10^6/ul (4.20-5.40); RED CELL DISTRIBUTION WIDTH 13.9 % (11.5-14.5); WHITE BLOOD COUNT 6.1 10^3/ul (4.8-10.8)
[2017-07-05 05:08] LABS: POSITIVE DIFF @See below
[2017-07-05 05:39] LABS: ALBUMIN 2.7 g/dl (3.3-4.9); ALBUMIN/GLOBULIN RATIO 1.03; BILIRUBIN,INDIRECT 0.1 mg/dl (0-1.1); BILIRUBIN,TOTAL 0.1 mg/dl (0.2-1.3); CALCIUM 8.5 mg/dl (8.4-10.2); CREATININE 3.35 mg/dl (0.44-1.00); POTASSIUM 5.3 mmol/L (3.5-5.1); TOTAL PROTEIN 5.3 g/dl (6.1-8.1)
--- NOTE | 2017-07-05 07:34 | RADRPT ---
PROCEDURE: US Renal CLINICAL INDICATION: Renal failure. TECHNIQUE: Multiple sonographic images of the kidneys and bladder were obtained. Evaluation of th e kidneys and bladder was performed as well with mueller scale and color and Doppler evaluation using a curved array transducer. The images were reviewed on a high-resolution PACS workstation. COMPARISON: CT abdomen pelvis 11/10/2013. FINDINGS: The right kidney measures 10.1 cm. The left kidney measures 10.1 cm. There is normal echogenicity within the parenchyma of the kidneys bilaterally. There are multiple bilateral renal cysts. The largest is on the right measuring 3.5 x 3.6 x 3.7 cm. There are no abnormal calcifications or hydronephrosis No perinephric fluid collection is seen. Evaluation of the urinary bladder is unremarkable. IMPRESSION: 1. Bilateral renal cysts. RPTAT: [facility] Physician Joelle Date Time Electronically viewed and signed by Physician Joelle on 07/05/2017 07:33 /
[2017-07-05] MEDS: INSULIN ASPART [NOVOLOG] 3 ML PEN SC SCH ×4 (07:35→21:00)
[2017-07-05] MEDS: ASPIRIN 81 MG TAB NGT SCH (07:56)
[2017-07-05] MEDS: FAMOTIDINE 20 MG INJ IV SCH (07:56)
[2017-07-05] MEDS: FERROUS SULFATE (EC) 325 MG TAB PO SCH ×2 (07:56→21:00)
[2017-07-05] MEDS: DOPamine-D5W 1.6 MG/ML 250 ML IV SCH (08:05)
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
--- NOTE | 2017-07-05 09:41 | CONS ---
Date/Time of Note Date/Time of Note DATE: 07/05/17 TIME: 09:38 Assessment/Plan Assessment/Plan Additional Assessment/Plan Ventilator settings; SIMV of 12, tidal volume 450, PEEP of 5, pressure support 10, 30% FiO2. Patient currently on fentanyl at 12 mics per hour, propofol at 15 mics per kilogram per minute, dopamine at 7 mics per kilogram per minute. Assessment and recommendations; 1. Patient admitted with syncope due to pacemaker malfunction status post replacement. 2. History of underlying renal insufficiency with worsening serum creatinine, nonoliguric. Likely some element of ATN. 3. Metabolic acidosis with interval improvement. 4. Possibly underlying coronary artery disease as well. Hold sedation. When the patient is off sedation she will be evaluated for possible extubation. Meanwhile continue current supportive care. Consultation Date/Type/Reason Admit Date/Time Jul 02, 2017 at 09:58 Type of Consultation: Pulmonary/critical care Referring Provider: YVETTE BLANTON MD 24 HR Interval Summary Free Text/Dictation Patient condition remains critical. The patient was given a weaning trial from ventilator yesterday, the patient did meet criteria however is for decided to delay weaning by additional 1 day for correction of metabolic acidosis on account of underlying worsening renal function. Currently the patient remains sedated orally intubated and does not appear to be in any distress. Exam/Review of Systems Vital Signs Vitals Vital Signs Date Time Temp Pulse Resp B/P Pulse Ox O2 Delivery O2 Flow Rate FiO2 07/05/17 08:00 60 07/05/17 07:15 98.8 13 99/52 Mechanical Ventilator 07/05/17 05:43 100 35 07/02/17 08:30 15.0 Intake and Output 07/04/17 07/04/17 07/05/17 15:00 23:00 07:00 Intake Total 279.924 ml 495.474 ml 529.038 ml Output Total 235 ml 1670 ml 230 ml Balance 44.924 ml -1174.526 ml 299.038 ml Exam HEENT exam; supple neck, no JVD. No lymphadenopathy. Midline trachea. No thyromegaly. Patient has fair dentition. Orally intubated. Pupils are midsize. Chest exam; clear to auscultation. S1-S2 audible, no murmurs. Regular rhythm. Abdomen exam; soft, no organomegaly. Bowel sounds audible. Extremity exam; no peripheral edema. CANCER REGISTRY COORDINATOR exam; patient is sedated. Results Result Diagram: 07/05/17 0400 07/05/17 0400 Results 24 hrs Laboratory Tests Test 07/04/17 11:40 07/04/17 17:00 07/04/17 17:43 07/04/17 20:43 Blood Gas Specimen Source Blood arterial Arterial Blood Date Drawn 07/04/2017 11:40:07 AM Arterial Blood pH (Temp corrected) 7.227 *L Arterial Blood pCO2 (Temp correct) 32.2 L Arterial Blood pO2 (Temp corrected) 110.7 H Arterial Blood HCO3 13.1 L Arterial Blood Base Excess -13.3 L Arterial Blood Oxygen Saturation 97.5 [place] Test ACCEPTAB Arterial Blood Gas Puncture Site Right Radial Arterial Blood Carboxyhemoglobin 0.3 Arterial Blood Methemoglobin 0.2 Blood Gas A-a O2 Differential 101.4 H Oxyhemoglobin Percent 97.0 Total Hemoglobin 13.2 Blood Gas Temperature 37.0 Blood Gas Actual Respiration Rate 19 Blood Gas Modality VENT - CPAP FiO2 35.0 Blood Gas Low PEEP Setting 5.0 Blood Gas Pressure Support 10 Blood Gas Critical Value Read Back FELICIA RN Blood Gas Notified Whom TM Blood Gas Notified Time 07/04/2017 11:47:53 AM Bedside Glucose 124 125 133 Urine Eosinophils % 0.0 Urine Random Creatinine 32.48 Urine Random Sodium 118 H Urine Protein/Creatinine Ratio 2.18 Urine Total Protein 71.0 H Test 07/05/17 00:57 07/05/17 04:00 07/05/17 04:42 07/05/17 07:50 Bedside Glucose 136 116 114 White Blood Count 6.1 # Red Blood Count 3.18 L Hemoglobin 10.0 L Hematocrit 30.7 L Mean Corpuscular Volume 96.5 Mean Corpuscular Hemoglobin 31.4 Mean Corpuscular Hemoglobin Concent 32.6 Red Cell Distribution Width 13.9 Platelet Count 90 L Mean Platelet Volume 11.0 H Neutrophils % 78.8 H Lymphocytes % 11.9 L Monocytes % 8.0 Eosinophils % 0.3 Basophils % 0.5 Nucleated Red Blood Cells % 0.0 Neutrophils # (Manual) 5 Lymphocytes # 0.7 L Monocytes # 0.5 Eosinophils # 0.0 Basophils # 0.0 Nucleated Red Blood Cells # 0.0 Sodium Level 140 Potassium Level 5.3 H Chloride Level 106 Carbon Dioxide Level 20 L Anion Gap 19 H Blood Urea Nitrogen 51 H Creatinine 3.35 H Glucose Level 109 Uric Acid 7.0 Calcium Level 8.5 Total Bilirubin 0.1 L Direct Bilirubin 0.00 Indirect Bilirubin 0.1 Aspartate Amino Transf (AST/SGOT) 21 Alanine Aminotransferase (ALT/SGPT) 22 Alkaline Phosphatase 62 Total Protein 5.3 #L Albumin 2.7 L Globulin 2.60 Albumin/Globulin Ratio 1.03 Medications Medications Current Medications Ondansetron HCl (Zofran Inj) 4 mg Q6H PRN IV NAUSEA AND/OR VOMITING; Start at 12:00 Acetaminophen (Tylenol Liquid) 650 mg Q6H PRN PO PAIN LEVEL 1-3 OR FEVER; Start 07/02/17 at 12:00 Acetaminophen (Tylenol Tab) 650 mg Q6H PRN PO PAIN LEVEL 1-3 OR FEVER; Start at 12:00 Morphine Sulfate (morphine) 2 mg Q4H PRN IV PAIN LEVEL 7-10; Start 07/02/17 at 12:00 Docusate Sodium (Colace) 100 mg Q12H PRN PO CONSTIPATION; Start 07/02/17 at 12: 00 Magnesium Hydroxide (Milk Of Mag) 30 ml DAILY PRN PO CONSTIPATION; Start at 12:00 Ferrous Sulfate (Ferrous Sulfate (Ec)) 325 mg BID PO Last administered on t 07:56; Admin Dose 325 MG; Start 07/02/17 at 21:00 Bisacodyl (Dulcolax Supp) 10 mg DAILY PRN [place] CONSTIPATION; Start 07/02/17 at 12 :30 Diagnostic Test (Pha) (Accu-Chek) 1 ea 02 XX ; Start 07/03/17 at 02:00 Miscellaneous Information 1 ea NOTE XX ; Start 07/02/17 at 14:00 Glucose (Glutose) 15 gm Q15M PRN PO DECREASED GLUCOSE; Start 07/02/17 at 14:00 Glucose (Glutose) 22.5 gm Q15M PRN PO DECREASED GLUCOSE; Start 07/02/17 at 14: 00 Dextrose (D50w Syringe) 25 ml Q15M PRN IV DECREASED GLUCOSE; Start 07/02/17 at 14:00 Dextrose (D50w Syringe) 50 ml Q15M PRN IV DECREASED GLUCOSE; Start 07/02/17 at 14:00 Glucagon (Glucagen) 1 mg Q15M PRN IM DECREASED GLUCOSE; Start 07/02/17 at 14:00 Glucose (Glutose) 15 gm Q15M PRN BUCCAL DECREASED GLUCOSE; Start 07/02/17 at 14 :00 Acetaminophen (Tylenol Tab) 650 mg Q4H PRN PO NON-CARDIAC PAIN LEVEL (1-3); Start 07/02/17 at 18:00 Aspirin 81 mg 81 mg DAILY NGT Last administered on 07/05/17 07:56; Admin Dose 81 MG; Start 07/03/17 at 09:00 Dopamine HCl/ Dextrose 250 ml @ 5.655 mls/ hr TITRATE IV Last administered on 07/05/17 08:05; Admin Dose 5.655 MLS/HR; Start 07/02/17 at 14:00 Silver Sulfadiazine (Thermazene 1% 25 Gm) 1 applic DAILY TOP Last administered on 07/04/17 08:52; Admin Dose 1 APPLIC; Start 07/03/17 at 09:00 Famotidine (Pepcid Iv) 20 mg DAILY IV Last administered on 07/05/17 07:56; Admin Dose 20 MG; Start 07/04/17 at 09:00 Calcium Gluconate 1 gm 1 gm ONCE PRN IV K+ GRETAER THAN 5.8; Start 07/04/17 at 09:00; Stop 07/05/17 at 23:59 Sodium Bicarbonate/ Dextrose (Na Bicarb/D5W) 1,100 ml @ 50 mls/hr Q22H IV Last administered on 07/04/17 15:54; Admin Dose 50 MLS/HR; Start 07/04/17 at 15 :00 NIKKI ONEAL Jul 05, 2017 09:41
[2017-07-05] MEDS ORDERED: SOD CHLORIDE 0.9% 500 ML IV ONE (11:30)
[2017-07-05] MEDS ORDERED: ALBUMIN HUMAN 25% 100 ML IV ONE (11:30)
[2017-07-05] MEDS ORDERED: FUROSEMIDE 20 MG INJ IV ONE (11:30)
[2017-07-05] MEDS: SILVER SULFADIAZINE 1% 25 GM CR TOP SCH (12:05)
[2017-07-05 12:12] LABS: CALCIUM 8.5 mg/dl (8.4-10.2); CREATININE 3.39 mg/dl (0.44-1.00); POTASSIUM 5.1 mmol/L (3.5-5.1)
--- NOTE | 2017-07-05 13:03 | RADRPT ---
Vent Rate: 60 bpm RR Interval: 0 msec NE Interval: 0 msec QRS Duration: 132 msec QT Interval: 450 msec QTC Interval: 450 msec P-R-T [place]: 0 - 133 - 83 degrees Electronic ventricular pacemaker Electronically Signed By: Bruce Goode [id number]
--- NOTE | 2017-07-05 13:03 | RADRPT ---
Vent Rate: 60 bpm RR Interval: 0 msec [place] Interval: 0 msec QRS Duration: 130 msec QT Interval: 444 msec QTC Interval: 444 msec P-R-T [place]: 0 - 130 - 83 degrees Electronic ventricular pacemaker Electronically Signed By: Bruce Goode [id number]
--- NOTE | 2017-07-05 13:03 | RADRPT ---
Vent Rate: 60 bpm RR Interval: 0 msec [place] Interval: 0 msec QRS Duration: 130 msec QT Interval: 456 msec QTC Interval: 456 msec P-R-T [place]: 0 - 142 - 90 degrees Electronic ventricular pacemaker Electronically Signed By: Bruce Goode [id number]
[2017-07-05] MEDS: SODIUM BICARBONATE (IV ADD) 100 MEQ in DEXTROSE 5% 1,000 ML IV SCH (13:38)
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
[2017-07-05] MEDS ORDERED: LIDOCAINE 1% (MPF) 5 ML VIAL SC ONE (17:00)
--- NOTE | 2017-07-05 17:22 | CONS ---
Date/Time of Note Date/Time of Note DATE: 07/05/17 TIME: 17:19 Assessment/Plan Assessment/Plan Additional Assessment/Plan 1/s.p Cardiac arrest 2. Cardiogenic shock 3. Acute kidney injury due to ischemic ATN , Acute hyperkalemia, Severe metabolic acidosis 4. Ischemic cardiomyopathy with low EF 5. Hypertension 6. Hyperlipidemia 7. h/o sick sinus syndrome, h/o paroxysmal atrial fibrillatin s/p pacemaker placement Plan: continue sodium bicarbonate 100meQ with D5W at 50cc/hr , plan is to stop bicarbonate once HCo3 >22 renal US c/w medical renal disease, no acute findings Plan for weanign and possible extubation today will monitor it , Consultation Date/Type/Reason Admit Date/Time Jul 02, 2017 at 09:58 Initial Consult Date 07/04/17 Type of Consultation: NEPHROLOGY Referring Provider: YVETTE BLANTON MD 24 HR Interval Summary Free Text/Dictation Urine output 2.17 Liter, Plan for weaning today, on Bicarbonate drip Exam/Review of Systems Vital Signs Vitals Vital Signs Date Time Temp Pulse Resp B/P Pulse Ox O2 Delivery O2 Flow Rate FiO2 07/05/17 16:00 60 07/05/17 14:45 20 100 07/05/17 14:25 2.0 07/05/17 14:15 118/71 07/05/17 13:30 CPAP 07/05/17 12:00 98.0 07/05/17 05:43 35 Intake and Output 07/04/17 07/04/17 07/05/17 15:00 23:00 07:00 Intake Total 279.924 ml 495.474 ml 529.038 ml Output Total 235 ml 1670 ml 230 ml Balance 44.924 ml -1174.526 ml 299.038 ml Exam Constitutional: intubated, more alert today Respiratory: diminished breath sounds, other (On mechanical ventilation) Cardiovascular: other (Externally paced) Gastrointestinal: non-tender, soft Musculoskeletal: nl extremities to inspection, other (No edema, clubbing or cyanosis) Extremities: normal pulses Neurological: sedated Results Result Diagram: 07/05/17 0400 07/05/17 1139 Results 24 hrs Laboratory Tests Test 07/04/17 17:43 07/04/17 20:43 07/05/17 00:57 07/05/17 04:00 Bedside Glucose 125 133 136 White Blood Count 6.1 # Red Blood Count 3.18 L Hemoglobin 10.0 L Hematocrit 30.7 L Mean Corpuscular Volume 96.5 Mean Corpuscular Hemoglobin 31.4 Mean Corpuscular Hemoglobin Concent 32.6 Red Cell Distribution Width 13.9 Platelet Count 90 L Mean Platelet Volume 11.0 H Neutrophils % 78.8 H Lymphocytes % 11.9 L Monocytes % 8.0 Eosinophils % 0.3 Basophils % 0.5 Nucleated Red Blood Cells % 0.0 Neutrophils # (Manual) 5 Lymphocytes # 0.7 L Monocytes # 0.5 Eosinophils # 0.0 Basophils # 0.0 Nucleated Red Blood Cells # 0.0 Sodium Level 140 Potassium Level 5.3 H Chloride Level 106 Carbon Dioxide Level 20 L Anion Gap 19 H Blood Urea Nitrogen 51 H Creatinine 3.35 H Glucose Level 109 Uric Acid 7.0 Calcium Level 8.5 Total Bilirubin 0.1 L Direct Bilirubin 0.00 Indirect Bilirubin 0.1 Aspartate Amino Transf (AST/SGOT) 21 Alanine Aminotransferase (ALT/SGPT) 22 Alkaline Phosphatase 62 Total Protein 5.3 #L Albumin 2.7 L Globulin 2.60 Albumin/Globulin Ratio 1.03 Test 07/05/17 04:42 07/05/17 07:50 07/05/17 11:39 07/05/17 11:55 Bedside Glucose 116 114 123 Sodium Level 138 Potassium Level 5.1 Chloride Level 104 Carbon Dioxide Level 21 Anion Gap 18 H Blood Urea Nitrogen 52 H Creatinine 3.39 H Glucose Level 166 Calcium Level 8.5 Medications Medications Current Medications Ondansetron HCl (Zofran Inj) 4 mg Q6H PRN IV NAUSEA AND/OR VOMITING Last administered on 07/05/17t 14:33; Admin Dose 4 MG; Start 07/02/17 at 12:00 Acetaminophen (Tylenol Liquid) 650 mg Q6H PRN PO PAIN LEVEL 1-3 OR FEVER; Start 07/02/17 at 12:00 Acetaminophen (Tylenol Tab) 650 mg Q6H PRN PO PAIN LEVEL 1-3 OR FEVER; Start at 12:00 Morphine Sulfate (morphine) 2 mg Q4H PRN IV PAIN LEVEL 7-10; Start 07/02/17 at 12:00 Docusate Sodium (Colace) 100 mg Q12H PRN PO CONSTIPATION; Start 07/02/17 at 12: 00 Magnesium Hydroxide (Milk Of Mag) 30 ml DAILY PRN PO CONSTIPATION; Start at 12:00 Ferrous Sulfate (Ferrous Sulfate (Ec)) 325 mg BID PO Last administered on 07:56; Admin Dose 325 MG; Start 07/02/17 at 21:00 Bisacodyl (Dulcolax Supp) 10 mg DAILY PRN [place] CONSTIPATION; Start 07/02/17 at 12 :30 Diagnostic Test (Pha) (Accu-Chek) 1 ea 02 XX ; Start 07/03/17 at 02:00 Miscellaneous Information 1 ea NOTE XX ; Start 07/02/17 at 14:00 Glucose (Glutose) 15 gm Q15M PRN PO DECREASED GLUCOSE; Start 07/02/17 at 14:00 Glucose (Glutose) 22.5 gm Q15M PRN PO DECREASED GLUCOSE; Start 07/02/17 at 14: 00 Dextrose (D50w Syringe) 25 ml Q15M PRN IV DECREASED GLUCOSE; Start 07/02/17 at 14:00 Dextrose (D50w Syringe) 50 ml Q15M PRN IV DECREASED GLUCOSE; Start 07/02/17 at 14:00 Glucagon (Glucagen) 1 mg Q15M PRN IM DECREASED GLUCOSE; Start 07/02/17 at 14:00 Glucose (Glutose) 15 gm Q15M PRN BUCCAL DECREASED GLUCOSE; Start 07/02/17 at 14 :00 Acetaminophen (Tylenol Tab) 650 mg Q4H PRN PO NON-CARDIAC PAIN LEVEL (1-3); Start 07/02/17 at 18:00 Aspirin 81 mg 81 mg DAILY NGT Last administered on 07/05/17 07:56; Admin Dose 81 MG; Start 07/03/17 at 09:00 Dopamine HCl/ Dextrose 250 ml @ 5.655 mls/ hr TITRATE IV Last administered on 07/05/17 08:05; Admin Dose 5.655 MLS/HR; Start 07/02/17 at 14:00 Silver Sulfadiazine (Thermazene 1% 25 Gm) 1 applic DAILY TOP Last administered on 07/05/17 12:05; Admin Dose 1 APPLIC; Start 07/03/17 at 09:00 Famotidine (Pepcid Iv) 20 mg DAILY IV Last administered on 07/05/17 07:56; Admin Dose 20 MG; Start 07/04/17 at 09:00 Calcium Gluconate 1 gm 1 gm ONCE PRN IV K+ GRETAER THAN 5.8; Start 07/04/17 at 09:00; Stop 07/05/17 at 23:59 Sodium Bicarbonate/ Dextrose (Na Bicarb/D5W) 1,100 ml @ 50 mls/hr Q22H IV Last administered on 07/05/17t 13:38; Admin Dose 50 MLS/HR; Start 07/04/17 at 15 :00 JULIANNA PAZ MD Jul 05, 2017 17:21
[2017-07-06] VITALS (31 sets, daily range): BP systolic 103–150; BP diastolic 46–89; PULSE 59–72; RESP 0–28
[2017-07-06] MEDS: ACCU-CHEK XX SCH ×2 (02:00→21:56)
[2017-07-06 05:42] LABS: ABNORMAL IP MESSAGE 1; BASOPHILS % 0.2 % (0.0-2.0); EOSINOPHILS % 0.2 % (0.0-7.0); LYMPHOCYTES # 0.6 10^3/ul (0.8-2.9); LYMPHOCYTES % 15.2 % (15.0-51.0); MEAN CORPUSCULAR HEMOGLOBIN 32.2 pg (29.0-33.0); MEAN CORPUSCULAR HGB CONC 33.3 g/dl (32.0-37.0); MEAN CORPUSCULAR VOLUME 96.5 fl (82.0-101.0); MEAN PLATELET VOLUME 11.1 fl (7.4-10.4); MONOCYTE # 0.4 10^3/ul (0.3-0.9); MONOCYTES % 10.1 % (0.0-11.0); NEUTROPHILS % 72.4 % (39.0-77.0); PLATELET COUNT 88 10^3/UL (140-415); RED BLOOD COUNT 3.11 10^6/ul (4.20-5.40); RED CELL DISTRIBUTION WIDTH 13.4 % (11.5-14.5); WHITE BLOOD COUNT 4.2 10^3/ul (4.8-10.8)
[2017-07-06 05:49] LABS: POSITIVE DIFF @See below
[2017-07-06 06:11] LABS: MAGNESIUM 2.1 mg/dl (1.7-2.5); PHOSPHORUS 4.7 mg/dl (2.5-4.9)
[2017-07-06 06:15] LABS: ALBUMIN/GLOBULIN RATIO 1.15; BILIRUBIN,INDIRECT 0.3 mg/dl (0-1.1); BILIRUBIN,TOTAL 0.3 mg/dl (0.2-1.3); CALCIUM 8.9 mg/dl (8.4-10.2); CREATININE 3.73 mg/dl (0.44-1.00); TOTAL PROTEIN 5.6 g/dl (6.1-8.1)
[2017-07-06] MEDS: INSULIN ASPART [NOVOLOG] 3 ML PEN SC SCH ×4 (07:35→21:00)
[2017-07-06] MEDS: ASPIRIN 81 MG TAB NGT SCH ×2 (08:55→10:58)
[2017-07-06] MEDS: FERROUS SULFATE (EC) 325 MG TAB PO SCH ×3 (08:55→21:52)
[2017-07-06] MEDS: FAMOTIDINE 20 MG INJ IV SCH (08:57)
[2017-07-06] MEDS: SILVER SULFADIAZINE 1% 25 GM CR TOP SCH (08:57)
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
--- NOTE | 2017-07-06 10:37 | RADRPT ---
PROCEDURE: Chest 1 views. CLINICAL INDICATION: Shortness of breath. TECHNIQUE: AP views of the chest was obtained. COMPARISON: July 03, 2017 FINDINGS: The heart is large. Left-sided pacemaker has its lead over the heart and appears stable. Central pu lmonary vascular congestion and mild interstitial prominence is seen in both lungs. Retrocardiac op acity is observed. Scattered atelectasis is noted in the right lung and left upper lobe. Osseous s tructures are intact. IMPRESSION: Cardiomegaly . Central pulmonary vascular congestion and interstitial prominence is seen in both lungs. Retrocardiac opacity that may reflect left lower lobe atelectasis or infiltrate combined with small pleural effusion. Scattered atelectasis in the right lung and left upper lobe. RPTAT: AA .Jayme Cheng MD, Date Time Electronically viewed and signed by .Jayme Cheng MD, on 07/06/2017 10:36 .P/
[2017-07-06] MEDS: PANTOPRAZOLE 40 MG INJ IV SCH ×2 (10:58→18:15)
--- NOTE | 2017-07-06 11:11 | CONS ---
Date/Time of Note Date/Time of Note DATE: 07/06/17 TIME: 11:05 Consult Date/Type/Reason Admit Date/Time Jul 02, 2017 at 09:58 Initial Consult Date 07/04/17 Type of Consultation: Pulmonary Ordering Provider: YVETTE BLANTON MD Subjective Patient stable following extubation yesterday. Failed swallow eval this morning. Objective Vital Signs Date Time Temp Pulse Resp B/P Pulse Ox O2 Delivery O2 Flow Rate FiO2 07/06/17 09:00 60 17 110/68 100 Nasal Cannula 2.0 07/06/17 08:00 98.4 07/05/17 05:43 35 Intake and Output 07/05/17 07/05/17 07/06/17 15:00 23:00 07:00 Intake Total 1005.545 ml 259.138 ml 350 ml Output Total 415 ml 320 ml 205 ml Balance 590.545 ml -60.862 ml 145 ml Exam PHYSICAL EXAMINATION GENERAL: Elderly lady comfortable at rest no acute distress VITAL SIGNS: see below. HEENT: Pupils equal, round, and reactive to light. CARDIAC: S1, S2, 1/6 systolic ejection murmur CHEST: Diminished air entry bilaterally. ABDOMEN: Mildly distended. Bowel sounds present no guarding or rebound EXTREMITIES: No cyanosis, clubbing edema +1 NEUROLOGIC: Generalized weakness Results/Medications Result Diagram: 07/06/17 0400 07/06/17 0400 Results 24 hrs Laboratory Tests Test 07/05/17 11:39 07/05/17 11:55 07/05/17 18:31 07/05/17 21:28 Sodium Level 138 Potassium Level 5.1 Chloride Level 104 Carbon Dioxide Level 21 Anion Gap 18 H Blood Urea Nitrogen 52 H Creatinine 3.39 H Glucose Level 166 Calcium Level 8.5 Bedside Glucose 123 127 127 Test 07/06/17 04:00 07/06/17 07:43 White Blood Count 4.2 #L Red Blood Count 3.11 L Hemoglobin 10.0 L Hematocrit 30.0 L Mean Corpuscular Volume 96.5 Mean Corpuscular Hemoglobin 32.2 Mean Corpuscular Hemoglobin Concent 33.3 Red Cell Distribution Width 13.4 Platelet Count 88 L Mean Platelet Volume 11.1 H Neutrophils % 72.4 Lymphocytes % 15.2 Monocytes % 10.1 Eosinophils % 0.2 Basophils % 0.2 Nucleated Red Blood Cells % 0.0 Neutrophils # (Manual) 3 Lymphocytes # 0.6 L Monocytes # 0.4 Eosinophils # 0.0 Basophils # 0.0 Nucleated Red Blood Cells # 0.0 Sodium Level 141 Potassium Level 5.0 Chloride Level 102 Carbon Dioxide Level 21 Anion Gap 23 H Blood Urea Nitrogen 58 H Creatinine 3.73 H Glucose Level 110 # Calcium Level 8.9 Phosphorus Level 4.7 Magnesium Level 2.1 Total Bilirubin 0.3 Direct Bilirubin 0.00 Indirect Bilirubin 0.3 Aspartate Amino Transf (AST/SGOT) 22 Alanine Aminotransferase (ALT/SGPT) 18 Alkaline Phosphatase 63 Total Protein 5.6 L Albumin 3.0 L Globulin 2.60 Albumin/Globulin Ratio 1.15 Bedside Glucose 110 Medications Current Medications Ondansetron HCl (Zofran Inj) 4 mg Q6H PRN IV NAUSEA AND/OR VOMITING Last administered on 07/05/17t 14:33; Admin Dose 4 MG; Start 07/02/17 at 12:00 Acetaminophen (Tylenol Liquid) 650 mg Q6H PRN PO PAIN LEVEL 1-3 OR FEVER; Start 07/02/17 at 12:00 Acetaminophen (Tylenol Tab) 650 mg Q6H PRN PO PAIN LEVEL 1-3 OR FEVER; Start at 12:00 Morphine Sulfate (morphine) 2 mg Q4H PRN IV PAIN LEVEL 7-10; Start 07/02/17 at 12:00 Docusate Sodium (Colace) 100 mg Q12H PRN PO CONSTIPATION; Start 07/02/17 at 12: 00 Magnesium Hydroxide (Milk Of Mag) 30 ml DAILY PRN PO CONSTIPATION; Start at 12:00 Ferrous Sulfate (Ferrous Sulfate (Ec)) 325 mg BID PO Last administered on t 10:58; Admin Dose 325 MG; Start 07/02/17 at 21:00 Bisacodyl (Dulcolax Supp) 10 mg DAILY PRN [place] CONSTIPATION; Start 07/02/17 at 12 :30 Diagnostic Test (Pha) (Accu-Chek) 1 ea 02 XX ; Start 07/03/17 at 02:00 Miscellaneous Information 1 ea NOTE XX ; Start 07/02/17 at 14:00 Glucose (Glutose) 15 gm Q15M PRN PO DECREASED GLUCOSE; Start 07/02/17 at 14:00 Glucose (Glutose) 22.5 gm Q15M PRN PO DECREASED GLUCOSE; Start 07/02/17 at 14: 00 Dextrose (D50w Syringe) 25 ml Q15M PRN IV DECREASED GLUCOSE; Start 07/02/17 at 14:00 Dextrose (D50w Syringe) 50 ml Q15M PRN IV DECREASED GLUCOSE; Start 07/02/17 at 14:00 Glucagon (Glucagen) 1 mg Q15M PRN IM DECREASED GLUCOSE; Start 07/02/17 at 14:00 Glucose (Glutose) 15 gm Q15M PRN BUCCAL DECREASED GLUCOSE; Start 07/02/17 at 14 :00 Acetaminophen (Tylenol Tab) 650 mg Q4H PRN PO NON-CARDIAC PAIN LEVEL (1-3); Start 07/02/17 at 18:00 Aspirin 81 mg 81 mg DAILY NGT Last administered on 07/06/17 10:58; Admin Dose 81 MG; Start 07/03/17 at 09:00 Dopamine HCl/ Dextrose 250 ml @ 5.655 mls/ hr TITRATE IV Last administered on 07/05/17 08:05; Admin Dose 5.655 MLS/HR; Start 07/02/17 at 14:00 Silver Sulfadiazine 1 applic 1 applic DAILY TOP Last administered on 07/06/17 08:57; Admin Dose 1 APPLIC; Start 07/03/17 at 09:00 Sodium Bicarbonate/ Dextrose (Na Bicarb/D5W) 1,100 ml @ 50 mls/hr Q22H IV Last administered on 07/05/17 13:38; Admin Dose 50 MLS/HR; Start 07/04/17 at 15 :00 Pantoprazole (Protonix Iv) 40 mg BID@06,18 IV Last administered on 07/06/17 10 :58; Admin Dose 40 MG; Start 07/06/17 at 10:00 Assessment/Plan Chief Complaint/Hosp Course Assessment 1. Status post cardiac arrest secondary to pacemaker malfunction. Status post battery change. 2. Respiratory failure now safely extubated. 3. History of coronary artery disease with decreased ejection fraction 4. Acute kidney injury possible ATN injury Plan 1. Continue cardiac recommendations 2. Speech therapy evaluation and recommendations 3. DVT and GI prophylaxis Transfer to telemetry. Problems: SANDI DUNAWAY MD, [facility] Jul 06, 2017 11:11
[2017-07-06] MEDS: SODIUM BICARBONATE (IV ADD) 100 MEQ in DEXTROSE 5% 1,000 ML IV SCH (11:28)
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
--- NOTE | 2017-07-06 14:17 | RADRPT ---
PROCEDURE: US guidance for PICC line CLINICAL INDICATION: PICC line placement TECHNIQUE: Multiple real-time images were acquired of the patient's arm utilizing a high resolutio n transducer. This was performed by the PICC line nurse for venous access. COMPARISON: None FINDINGS: Ultrasound guidance for PICC line placement. IMPRESSION: Ultrasound guidance for PICC line placement. RPTAT: AA .Anil Lal MD, MD Date Time Electronically viewed and signed by .Anil Lal MD, on 07/06/2017 14:16 .S/
[2017-07-06] MEDS: CLOPIDOGREL 75 MG TAB PO SCH (14:27)
--- NOTE | 2017-07-06 15:15 | RADRPT ---
PROCEDURE: XR Chest. CLINICAL INDICATION: Check PICC line position. TECHNIQUE: Single frontal view. COMPARISON: Prior study done earlier the same day. FINDINGS: There is a right arm PICC line with the tip in the lower superior vena cava. The left-sided permane nt pacemaker is once again noted. Pulmonary edema is unchanged. There is left basilar atelectasis, unchanged. The heart is enlarged. There is calcification in the aorta consistent with atherosclerosis. There is no pleural effusion. There is no pneumothorax. IMPRESSION: 1. Right arm PICC line tip in satisfactory position. 2. No other change from the prior study done earlier the same day. RPTAT: QQ .Javier Maher MD, Date Time Electronically viewed and signed by .Javier Maher MD, on 07/06/2017 15:15 .R/
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
--- NOTE | 2017-07-06 21:47 | CONS ---
Date/Time of Note Date/Time of Note DATE: 07/06/17 TIME: 21:44 Assessment/Plan Assessment/Plan Additional Assessment/Plan 1/s.p Cardiac arrest 2. Cardiogenic shock 3. Acute kidney injury due to ischemic ATN , Acute hyperkalemia, Severe metabolic acidosis 4. Ischemic cardiomyopathy with low EF 5. Hypertension 6. Hyperlipidemia 7. h/o sick sinus syndrome, h/o paroxysmal atrial fibrillatin s/p pacemaker placement 8. Acute respiratory failure, ventilator dependant, S/p Extubation Plan: s/p Bicarbonate drip, now stable, extubated doing well, CXR showed mild pulmonary congestion, BP was labile in AM, will avoid lasix for today and give it tomorrow if pt needed Urine output marginal renal US c/w medical renal disease, no acute findings will monitor it , Consultation Date/Type/Reason Admit Date/Time Jul 02, 2017 at 09:58 Initial Consult Date 07/04/17 Type of Consultation: NEPHROLOGY Referring Provider: JACQUE MARTINEZ 24 HR Interval Summary Free Text/Dictation pt successfully extubated, BP stable, CXR showed mild congestion but BP was labile, U/O marginal Exam/Review of Systems Vital Signs Vitals Vital Signs Date Time Temp Pulse Resp B/P Pulse Ox O2 Delivery O2 Flow Rate FiO2 07/06/17 21:40 2.0 07/06/17 20:00 60 07/06/17 20:00 97.9 18 125/68 96 Nasal Cannula 07/05/17 05:43 35 Intake and Output 07/05/17 07/05/17 07/06/17 15:00 23:00 07:00 Intake Total 1005.545 ml 259.138 ml 400 ml Output Total 415 ml 320 ml 205 ml Balance 590.545 ml -60.862 ml 195 ml Exam Constitutional: alert, oriented Psych: no complaints Head: normocephalic Eyes: nl conjunctiva ENMT: nl external ears & nose Neck: non-tender, supple Respiratory: crackles/rales, diminished breath sounds, wheezing Cardiovascular: nl pulses, regular rate and rhythm Gastrointestinal: non-tender, soft Musculoskeletal: nl extremities to inspection Lymph: nl lymph nodes Results Result Diagram: 07/06/17 0400 07/06/17 0400 Results 24 hrs Laboratory Tests Test 07/06/17 04:00 07/06/17 07:43 07/06/17 11:51 07/06/17 17:38 White Blood Count 4.2 #L Red Blood Count 3.11 L Hemoglobin 10.0 L Hematocrit 30.0 L Mean Corpuscular Volume 96.5 Mean Corpuscular Hemoglobin 32.2 Mean Corpuscular Hemoglobin Concent 33.3 Red Cell Distribution Width 13.4 Platelet Count 88 L Mean Platelet Volume 11.1 H Neutrophils % 72.4 Lymphocytes % 15.2 Monocytes % 10.1 Eosinophils % 0.2 Basophils % 0.2 Nucleated Red Blood Cells % 0.0 Neutrophils # (Manual) 3 Lymphocytes # 0.6 L Monocytes # 0.4 Eosinophils # 0.0 Basophils # 0.0 Nucleated Red Blood Cells # 0.0 Sodium Level 141 Potassium Level 5.0 Chloride Level 102 Carbon Dioxide Level 21 Anion Gap 23 H Blood Urea Nitrogen 58 H Creatinine 3.73 H Glucose Level 110 # Calcium Level 8.9 Phosphorus Level 4.7 Magnesium Level 2.1 Total Bilirubin 0.3 Direct Bilirubin 0.00 Indirect Bilirubin 0.3 Aspartate Amino Transf (AST/SGOT) 22 Alanine Aminotransferase (ALT/SGPT) 18 Alkaline Phosphatase 63 Total Protein 5.6 L Albumin 3.0 L Globulin 2.60 Albumin/Globulin Ratio 1.15 Bedside Glucose 110 101 122 Test 07/06/17 21:35 Bedside Glucose 97 Medications Medications Current Medications Ondansetron HCl (Zofran Inj) 4 mg Q6H PRN IV NAUSEA AND/OR VOMITING Last administered on 07/05/17t 14:33; Admin Dose 4 MG; Start 07/02/17 at 12:00 Acetaminophen (Tylenol Liquid) 650 mg Q6H PRN PO PAIN LEVEL 1-3 OR FEVER; Start 07/02/17 at 12:00 Acetaminophen (Tylenol Tab) 650 mg Q6H PRN PO PAIN LEVEL 1-3 OR FEVER; Start at 12:00 Morphine Sulfate (morphine) 2 mg Q4H PRN IV PAIN LEVEL 7-10; Start 07/02/17 at 12:00 Docusate Sodium (Colace) 100 mg Q12H PRN PO CONSTIPATION; Start 07/02/17 at 12: 00 Magnesium Hydroxide (Milk Of Mag) 30 ml DAILY PRN PO CONSTIPATION; Start at 12:00 Ferrous Sulfate (Ferrous Sulfate (Ec)) 325 mg BID PO Last administered on 10:58; Admin Dose 325 MG; Start 07/02/17 at 21:00 Bisacodyl (Dulcolax Supp) 10 mg DAILY PRN [place] CONSTIPATION; Start 07/02/17 at 12 :30 Diagnostic Test (Pha) (Accu-Chek) 1 ea 02 XX ; Start 07/03/17 at 02:00 Miscellaneous Information 1 ea NOTE XX ; Start 07/02/17 at 14:00 Glucose (Glutose) 15 gm Q15M PRN PO DECREASED GLUCOSE; Start 07/02/17 at 14:00 Glucose (Glutose) 22.5 gm Q15M PRN PO DECREASED GLUCOSE; Start 07/02/17 at 14: 00 Dextrose (D50w Syringe) 25 ml Q15M PRN IV DECREASED GLUCOSE; Start 07/02/17 at 14:00 Dextrose (D50w Syringe) 50 ml Q15M PRN IV DECREASED GLUCOSE; Start 07/02/17 at 14:00 Glucagon (Glucagen) 1 mg Q15M PRN IM DECREASED GLUCOSE; Start 07/02/17 at 14:00 Glucose (Glutose) 15 gm Q15M PRN BUCCAL DECREASED GLUCOSE; Start 07/02/17 at 14 :00 Acetaminophen (Tylenol Tab) 650 mg Q4H PRN PO NON-CARDIAC PAIN LEVEL (1-3); Start 07/02/17 at 18:00 Aspirin (Aspirin) 81 mg DAILY NGT Last administered on 07/06/17 10:58; Admin Dose 81 MG; Start 07/03/17 at 09:00 Silver Sulfadiazine 1 applic 1 applic DAILY TOP Last administered on 07/06/17 08:57; Admin Dose 1 APPLIC; Start 07/03/17 at 09:00 Sodium Bicarbonate/ Dextrose (Na Bicarb/D5W) 1,100 ml @ 50 mls/hr Q22H IV Last administered on 07/06/17 11:28; Admin Dose 50 MLS/HR; Start 07/04/17 at 15 :00 Pantoprazole (Protonix Iv) 40 mg BID@06,18 IV Last administered on 07/06/17 18 :15; Admin Dose 40 MG; Start 07/06/17 at 10:00 Clopidogrel Bisulfate (plaVIX) 75 mg DAILY PO Last administered on 07/06/17 14 :27; Admin Dose 75 MG; Start 07/06/17 at 14:00 IV Flush (NS 10 ml) 10 ml PRN PRN IV IV PROTOCOL; Start 07/06/17 at 15:30 JULIANNA PAZ MD Jul 06, 2017 21:47
[2017-07-06] MEDS ORDERED: QUETIAPINE 25 MG TAB PO PRN (23:30)
[2017-07-07] VITALS (10 sets, daily range): BP systolic 112–120; BP diastolic 56–58; PULSE 59–70; RESP 16–18
[2017-07-07] MEDS: PANTOPRAZOLE 40 MG INJ IV SCH ×2 (05:08→17:28)
[2017-07-07 07:51] LABS: ABNORMAL IP MESSAGE 1; BASOPHILS % 0.8 % (0.0-2.0); EOSINOPHILS % 0.8 % (0.0-7.0); HEMATOCRIT 29.1 % (37.0-47.0); HEMOGLOBIN 9.8 g/dl (12.0-16.0); LYMPHOCYTES # 0.5 10^3/ul (0.8-2.9); MEAN CORPUSCULAR HEMOGLOBIN 32.2 pg (29.0-33.0); MEAN CORPUSCULAR HGB CONC 33.7 g/dl (32.0-37.0); MEAN CORPUSCULAR VOLUME 95.7 fl (82.0-101.0); MEAN PLATELET VOLUME 11.3 fl (7.4-10.4); MONOCYTE # 0.3 10^3/ul (0.3-0.9); MONOCYTES % 12.6 % (0.0-11.0); NEUTROPHILS % 65.2 % (39.0-77.0); PLATELET COUNT 88 10^3/UL (140-415); RED BLOOD COUNT 3.04 10^6/ul (4.20-5.40); RED CELL DISTRIBUTION WIDTH 13.4 % (11.5-14.5); WHITE BLOOD COUNT 2.5 10^3/ul (4.8-10.8)
[2017-07-07] MEDS: INSULIN ASPART [NOVOLOG] 3 ML PEN SC SCH ×4 (07:55→20:14)
[2017-07-07 08:03] LABS: POSITIVE DIFF @See below
[2017-07-07 08:15] LABS: CALCIUM 8.8 mg/dl (8.4-10.2); CREATININE 3.77 mg/dl (0.44-1.00); POTASSIUM 4.6 mmol/L (3.5-5.1)
[2017-07-07 08:17] LABS: MAGNESIUM 2.2 mg/dl (1.7-2.5); PHOSPHORUS 4.7 mg/dl (2.5-4.9)
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
[2017-07-07] MEDS: ASPIRIN 81 MG TAB NGT SCH (08:44)
[2017-07-07] MEDS: CLOPIDOGREL 75 MG TAB PO SCH (08:44)
[2017-07-07] MEDS: FERROUS SULFATE (EC) 325 MG TAB PO SCH ×2 (08:44→20:14)
[2017-07-07] MEDS: SILVER SULFADIAZINE 1% 25 GM CR TOP SCH (08:45)
--- NOTE | 2017-07-07 09:09 | RADRPT ---
PROCEDURE: XR Chest. CLINICAL INDICATION: Shortness of breath TECHNIQUE: An AP view of the chest was obtained. COMPARISON: Chest x-ray dated 07/06/2017 FINDINGS: There is a left subclavian single lead pacemaker. There is a right upper extremity PICC line with t ip in the mid SVC. There is prominence of the interstitial markings with small bilateral pleural effusions. No foca l airspace opacification or pneumothorax is seen. The cardiomediastinal silhouette is mildly enlar ged . Calcifications are seen within the aortic arch. The osseous structures demonstrate senescent changes. IMPRESSION: 1. Findings suggestive of interstitial edema with small bilateral pleural effusions. Lung aeration is mildly improved when compared to the prior examination. 2. Mild cardiomegaly and aortic atherosclerosis. 3. Tubes and lines, as described above. RPTAT: HH .Dariana Pedro MD, MD Date Time Electronically viewed and signed by .Dariana Pedro MD, MD on 07/07/2017 09:09 .G/
[2017-07-07] MEDS ORDERED: SOD CHLORIDE 0.9% 100 ML ONE (11:39)
[2017-07-07] MEDS: SODIUM BICARBONATE (IV ADD) 100 MEQ in DEXTROSE 5% 1,000 ML IV SCH (11:43)
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
[2017-07-07] MEDS ORDERED: QUETIAPINE 25 MG TAB PO PRN (14:00)
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
[2017-07-07] MEDS ORDERED: FUROSEMIDE 20 MG INJ IV ONE (21:30)
[2017-07-08] VITALS (11 sets, daily range): BP systolic 102–117; BP diastolic 51–59; PULSE 59–60; RESP 16–20
[2017-07-08] MEDS: ACCU-CHEK XX SCH (02:00)
[2017-07-08] MEDS: PANTOPRAZOLE 40 MG INJ IV SCH ×2 (05:17→17:28)
[2017-07-08] MEDS: FUROSEMIDE 20 MG INJ IV SCH ×2 (05:19→17:29)
[2017-07-08 07:31] LABS: ABNORMAL IP MESSAGE 1; BASOPHILS % 0.3 % (0.0-2.0); EOSINOPHILS % 0.9 % (0.0-7.0); HEMATOCRIT 28.6 % (37.0-47.0); HEMOGLOBIN 9.2 g/dl (12.0-16.0); LYMPHOCYTES # 0.5 10^3/ul (0.8-2.9); LYMPHOCYTES % 14.2 % (15.0-51.0); MEAN CORPUSCULAR HEMOGLOBIN 30.6 pg (29.0-33.0); MEAN CORPUSCULAR HGB CONC 32.2 g/dl (32.0-37.0); MEAN PLATELET VOLUME 11.6 fl (7.4-10.4); MONOCYTE # 0.4 10^3/ul (0.3-0.9); MONOCYTES % 13.3 % (0.0-11.0); NEUTROPHILS % 69.4 % (39.0-77.0); RED BLOOD COUNT 3.01 10^6/ul (4.20-5.40); RED CELL DISTRIBUTION WIDTH 13.3 % (11.5-14.5); WHITE BLOOD COUNT 3.2 10^3/ul (4.8-10.8)
[2017-07-08 07:40] LABS: PLATELET COUNT 87 10^3/UL (140-415); POSITIVE DIFF @See below
[2017-07-08] MEDS: INSULIN ASPART [NOVOLOG] 3 ML PEN SC SCH ×4 (07:43→20:13)
[2017-07-08 08:33] LABS: MAGNESIUM 2.1 mg/dl (1.7-2.5); PHOSPHORUS 4.2 mg/dl (2.5-4.9)
[2017-07-08] MEDS: FERROUS SULFATE (EC) 325 MG TAB PO SCH ×2 (08:36→20:14)
[2017-07-08] MEDS: ASPIRIN 81 MG TAB NGT SCH (08:36)
[2017-07-08] MEDS: SILVER SULFADIAZINE 1% 25 GM CR TOP SCH (08:36)
[2017-07-08] MEDS: CLOPIDOGREL 75 MG TAB PO SCH (08:36)
[2017-07-08 08:41] LABS: ALBUMIN 2.5 g/dl (3.3-4.9); ALBUMIN/GLOBULIN RATIO 0.96; BILIRUBIN,INDIRECT 0.3 mg/dl (0-1.1); BILIRUBIN,TOTAL 0.3 mg/dl (0.2-1.3); CALCIUM 8.3 mg/dl (8.4-10.2); CREATININE 3.94 mg/dl (0.44-1.00); TOTAL PROTEIN 5.1 g/dl (6.1-8.1)
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
[2017-07-08 12:13] LABS: Allen Test ACCEPTAB; Arterial COHb 0.3 % (0.0-3.0); Arterial Fraction of Oxyhgb 97.8 % (93.0-99.0); Arterial HCO3 25.8 mmol/L (22.0-26.0); Arterial MetHb 0.1 % (0.0-1.5); Arterial Total Hemglobin 10.6 g/dl (12.0-18.0); MODE NASAL CANNULA
--- NOTE | 2017-07-08 13:05 | RADRPT ---
PROCEDURE: Chest 1 views. CLINICAL INDICATION: Shortness of breath TECHNIQUE: AP views of the chest was obtained. COMPARISON: Yesterday FINDINGS: The heart is large. Central pulmonary vascular congestion and interstitial prominence in both lungs is unchanged. Retrocardiac opacity is stable. Haziness is noted at the right lung base. Left-side d pacemaker has its lead over the heart and appears stable. Right-sided PICC line is stable. Osseous structures are unchanged. IMPRESSION: Cardiomegaly . Stable central pulmonary vascular congestion and mild interstitial prominence in both lungs. Stable retrocardiac opacity that may reflect left lower lobe atelectasis or infiltrate combined with small pleural effusion. New haziness at the right lung base that may reflect small pleural effusion with associated basilar atelectasis. RPTAT: AA .Jayme Cheng MD, Date Time Electronically viewed and signed by .Jayme Cheng MD, on 07/08/2017 13:04 .P/
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
[2017-07-09] VITALS (21 sets, daily range): BP systolic 106–129; BP diastolic 56–69; PULSE 58–60; RESP 16–19
[2017-07-09] MEDS: ACCU-CHEK XX SCH (02:00)
[2017-07-09] MEDS: PANTOPRAZOLE 40 MG INJ IV SCH ×2 (06:32→17:53)
[2017-07-09] MEDS: FUROSEMIDE 20 MG INJ IV SCH (06:32)
[2017-07-09 06:58] LABS: BASOPHILS % 0.4 % (0.0-2.0); EOSINOPHILS % 0.6 % (0.0-7.0); HEMOGLOBIN 9.4 g/dl (12.0-16.0); LYMPHOCYTES # 0.7 10^3/ul (0.8-2.9); LYMPHOCYTES % 13.4 % (15.0-51.0); MEAN CORPUSCULAR HEMOGLOBIN 31.4 pg (29.0-33.0); MEAN CORPUSCULAR HGB CONC 32.4 g/dl (32.0-37.0); MEAN PLATELET VOLUME 10.9 fl (7.4-10.4); MONOCYTE # 0.6 10^3/ul (0.3-0.9); MONOCYTES % 11.4 % (0.0-11.0); NEUTROPHILS % 72.4 % (39.0-77.0); PLATELET COUNT 125 10^3/UL (140-415); RED BLOOD COUNT 2.99 10^6/ul (4.20-5.40); RED CELL DISTRIBUTION WIDTH 13.6 % (11.5-14.5); WHITE BLOOD COUNT 5.1 10^3/ul (4.8-10.8)
[2017-07-09] MEDS ORDERED: PROPOFOL 200 MG INJ ONE (07:00)
[2017-07-09] MEDS ORDERED: CEFAZOLIN 1 GM INJ ONE (07:00)
[2017-07-09 07:24] LABS: POTASSIUM 4.6 mmol/L (3.5-5.1)
[2017-07-09 07:25] LABS: CALCIUM 8.5 mg/dl (8.4-10.2); CREATININE 4.14 mg/dl (0.44-1.00)
[2017-07-09 07:34] LABS: PHOSPHORUS 4.9 mg/dl (2.5-4.9)
[2017-07-09] MEDS: INSULIN ASPART [NOVOLOG] 3 ML PEN SC SCH ×4 (07:55→21:00)
[2017-07-09] MEDS: SILVER SULFADIAZINE 1% 25 GM CR TOP SCH (08:56)
[2017-07-09] MEDS: CLOPIDOGREL 75 MG TAB PO SCH (09:01)
[2017-07-09] MEDS: ASPIRIN 81 MG TAB NGT SCH (09:01)
[2017-07-09] MEDS: FERROUS SULFATE (EC) 325 MG TAB PO SCH ×2 (09:01→22:12)
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
--- NOTE | 2017-07-09 18:50 | HPN ---
Date/Time of Note Date/Time of Note DATE: 07/09/17 TIME: 18:49 Interval H&P Admission Note Pt. seen H&P reviewed: No system changes BIB LINARES MD Jul 09, 2017 18:49
[2017-07-09] MEDS ORDERED: FENTAnyl 50 MCG/ML VIAL ONE (19:13)
[2017-07-09] MEDS ORDERED: MIDAZOLAM 1 MG/ML 2 ML INJ ONE (19:13)
[2017-07-09] MEDS ORDERED: LIDOCAINE 1% (STERILE-PAK) 30 ML INJ ONE (19:29)
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
[2017-07-09] MEDS ORDERED: FENTAnyl 50 MCG/ML VIAL IV PRN ×2 (20:30)
[2017-07-09] MEDS ORDERED: LABETALOL HCL 20MG INJ IV PRN (20:30)
[2017-07-09] MEDS ORDERED: EPHEDrine SULFATE 50 MG/5 ML SYG IV PRN (20:30)
[2017-07-09] MEDS ORDERED: ONDANSETRON 4 MG INJ IV PRN (20:30)
[2017-07-09] MEDS ORDERED: DIPHENHYDRAMINE 50 MG INJ IV PRN (20:30)
[2017-07-09] MEDS ORDERED: KETOROLAC 30 MG INJ IV PRN (20:30)
[2017-07-09] MEDS ORDERED: hydrALAzine 20 MG INJ IV PRN (20:30)
[2017-07-09] MEDS ORDERED: morphine (1 MG/ML) 10ML SYRINGE IV PRN (20:30)
[2017-07-09] MEDS ORDERED: OXYCODONE/ACETAMINOPHEN (5/325) TAB PO PRN (20:30)
[2017-07-10] VITALS (10 sets, daily range): BP systolic 114–155; BP diastolic 56–76; PULSE 59–60; RESP 18–22
[2017-07-10] MEDS: ACCU-CHEK XX SCH (02:00)
[2017-07-10] MEDS: PANTOPRAZOLE 40 MG INJ IV SCH ×2 (06:00→18:00)
[2017-07-10 06:29] LABS: BASOPHILS % 0.6 % (0.0-2.0); EOSINOPHILS # 0.1 10^3/ul (0.0-0.5); EOSINOPHILS % 1.2 % (0.0-7.0); HEMATOCRIT 29.3 % (37.0-47.0); HEMOGLOBIN 9.3 g/dl (12.0-16.0); LYMPHOCYTES # 0.8 10^3/ul (0.8-2.9); LYMPHOCYTES % 14.8 % (15.0-51.0); MEAN CORPUSCULAR HGB CONC 31.7 g/dl (32.0-37.0); MEAN CORPUSCULAR VOLUME 97.7 fl (82.0-101.0); MEAN PLATELET VOLUME 10.5 fl (7.4-10.4); MONOCYTE # 0.6 10^3/ul (0.3-0.9); MONOCYTES % 10.7 % (0.0-11.0); NEUTROPHILS % 70.8 % (39.0-77.0); PLATELET COUNT 143 10^3/UL (140-415); RED CELL DISTRIBUTION WIDTH 13.7 % (11.5-14.5); WHITE BLOOD COUNT 5.2 10^3/ul (4.8-10.8)
[2017-07-10 07:13] LABS: CALCIUM 8.5 mg/dl (8.4-10.2); CREATININE 4.11 mg/dl (0.44-1.00); POTASSIUM 4.8 mmol/L (3.5-5.1)
[2017-07-10 07:15] LABS: PHOSPHORUS 5.6 mg/dl (2.5-4.9)
[2017-07-10] MEDS: INSULIN ASPART [NOVOLOG] 3 ML PEN SC SCH ×4 (07:55→20:50)
[2017-07-10] MEDS: FERROUS SULFATE (EC) 325 MG TAB PO SCH ×2 (08:43→20:50)
[2017-07-10] MEDS: ASPIRIN 81 MG TAB NGT SCH (08:43)
[2017-07-10] MEDS: CLOPIDOGREL 75 MG TAB PO SCH (08:43)
[2017-07-10] MEDS: SILVER SULFADIAZINE 1% 25 GM CR TOP SCH (08:46)
[2017-07-10] MEDS ORDERED: FUROSEMIDE 20 MG INJ IV SCH (09:00)
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
[2017-07-11] VITALS (13 sets, daily range): BP systolic 113–135; BP diastolic 56–70; PULSE 59–60; RESP 17–19
[2017-07-11] MEDS: ACCU-CHEK XX SCH (02:00)
[2017-07-11] MEDS: PANTOPRAZOLE 40 MG INJ IV SCH ×2 (05:40→18:00)
[2017-07-11] MEDS: INSULIN ASPART [NOVOLOG] 3 ML PEN SC SCH ×4 (07:55→20:25)
[2017-07-11] MEDS: FERROUS SULFATE (EC) 325 MG TAB PO SCH ×2 (08:51→20:26)
[2017-07-11] MEDS: CLOPIDOGREL 75 MG TAB PO SCH (08:51)
[2017-07-11] MEDS: SILVER SULFADIAZINE 1% 25 GM CR TOP SCH (08:52)
[2017-07-11] MEDS: FUROSEMIDE 40 MG TAB PO SCH (08:52)
[2017-07-11] MEDS: ASPIRIN 81 MG TAB NGT SCH (08:52)
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
[2017-07-11 14:20] LABS: BASOPHILS % 0.2 % (0.0-2.0); EOSINOPHILS % 0.7 % (0.0-7.0); HEMATOCRIT 28.9 % (37.0-47.0); HEMOGLOBIN 9.2 g/dl (12.0-16.0); LYMPHOCYTES # 0.8 10^3/ul (0.8-2.9); LYMPHOCYTES % 14.7 % (15.0-51.0); MEAN CORPUSCULAR HEMOGLOBIN 31.4 pg (29.0-33.0); MEAN CORPUSCULAR HGB CONC 31.8 g/dl (32.0-37.0); MEAN CORPUSCULAR VOLUME 98.6 fl (82.0-101.0); MEAN PLATELET VOLUME 10.5 fl (7.4-10.4); MONOCYTE # 0.6 10^3/ul (0.3-0.9); MONOCYTES % 11.9 % (0.0-11.0); NEUTROPHILS % 70.6 % (39.0-77.0); PLATELET COUNT 174 10^3/UL (140-415); RED BLOOD COUNT 2.93 10^6/ul (4.20-5.40); RED CELL DISTRIBUTION WIDTH 14.1 % (11.5-14.5); WHITE BLOOD COUNT 5.4 10^3/ul (4.8-10.8)
[2017-07-11 14:43] LABS: CALCIUM 8.4 mg/dl (8.4-10.2); CREATININE 4.01 mg/dl (0.44-1.00)
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
[2017-07-12] VITALS (11 sets, daily range): BP systolic 110–121; BP diastolic 56–64; PULSE 50–60; RESP 18–20
[2017-07-12] MEDS: ACCU-CHEK XX SCH (02:00)
[2017-07-12] MEDS: PANTOPRAZOLE 40 MG INJ IV SCH (05:59)
[2017-07-12 07:02] LABS: BASOPHILS % 0.4 % (0.0-2.0); EOSINOPHILS # 0.1 10^3/ul (0.0-0.5); HEMATOCRIT 29.1 % (37.0-47.0); HEMOGLOBIN 9.2 g/dl (12.0-16.0); LYMPHOCYTES # 0.7 10^3/ul (0.8-2.9); LYMPHOCYTES % 13.8 % (15.0-51.0); MEAN CORPUSCULAR HEMOGLOBIN 31.5 pg (29.0-33.0); MEAN CORPUSCULAR HGB CONC 31.6 g/dl (32.0-37.0); MEAN CORPUSCULAR VOLUME 99.7 fl (82.0-101.0); MEAN PLATELET VOLUME 10.4 fl (7.4-10.4); MONOCYTE # 0.7 10^3/ul (0.3-0.9); MONOCYTES % 14.7 % (0.0-11.0); NEUTROPHILS % 68.1 % (39.0-77.0); PLATELET COUNT 184 10^3/UL (140-415); RED BLOOD COUNT 2.92 10^6/ul (4.20-5.40); RED CELL DISTRIBUTION WIDTH 14.1 % (11.5-14.5); WHITE BLOOD COUNT 4.9 10^3/ul (4.8-10.8)
[2017-07-12 07:27] LABS: INR 1.32; PROTIME 16.5 Sec (12.2-14.2); PT RATIO 1.3
[2017-07-12 07:28] LABS: ALBUMIN 2.8 g/dl (3.3-4.9); ALBUMIN/GLOBULIN RATIO 0.96; BILIRUBIN,INDIRECT 0.2 mg/dl (0-1.1); BILIRUBIN,TOTAL 0.2 mg/dl (0.2-1.3); CALCIUM 8.5 mg/dl (8.4-10.2); CREATININE 3.82 mg/dl (0.44-1.00); POTASSIUM 4.7 mmol/L (3.5-5.1); TOTAL PROTEIN 5.7 g/dl (6.1-8.1)
[2017-07-12] MEDS: FERROUS SULFATE (EC) 325 MG TAB PO SCH ×2 (09:18→22:28)
[2017-07-12] MEDS: ASPIRIN 81 MG TAB NGT SCH (09:20)
[2017-07-12] MEDS: FUROSEMIDE 40 MG TAB PO SCH (09:20)
[2017-07-12] MEDS: CLOPIDOGREL 75 MG TAB PO SCH (09:20)
[2017-07-12] MEDS: SILVER SULFADIAZINE 1% 25 GM CR TOP SCH (09:21)
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
[2017-07-12] MEDS: morphine 2 MG INJ IV PRN (11:08)
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
[2017-07-12] MEDS: PANTOPRAZOLE (EC) 40 MG TAB PO SCH (18:16)
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
[2017-07-13] VITALS (12 sets, daily range): BP systolic 107–140; BP diastolic 50–77; PULSE 59–60; RESP 17–19
[2017-07-13] MEDS: PANTOPRAZOLE (EC) 40 MG TAB PO SCH ×2 (05:57→17:33)
[2017-07-13 06:55] LABS: BASOPHILS % 0.4 % (0.0-2.0); EOSINOPHILS % 0.3 % (0.0-7.0); HEMATOCRIT 29.7 % (37.0-47.0); HEMOGLOBIN 9.4 g/dl (12.0-16.0); LYMPHOCYTES # 0.8 10^3/ul (0.8-2.9); LYMPHOCYTES % 9.8 % (15.0-51.0); MEAN CORPUSCULAR HEMOGLOBIN 31.3 pg (29.0-33.0); MEAN CORPUSCULAR HGB CONC 31.6 g/dl (32.0-37.0); MEAN PLATELET VOLUME 10.5 fl (7.4-10.4); MONOCYTE # 0.9 10^3/ul (0.3-0.9); MONOCYTES % 11.7 % (0.0-11.0); NEUTROPHILS % 76.2 % (39.0-77.0); PLATELET COUNT 207 10^3/UL (140-415); RED CELL DISTRIBUTION WIDTH 14.2 % (11.5-14.5); WHITE BLOOD COUNT 7.6 10^3/ul (4.8-10.8)
[2017-07-13 07:10] LABS: CALCIUM 8.6 mg/dl (8.4-10.2); CREATININE 3.56 mg/dl (0.44-1.00); POTASSIUM 4.5 mmol/L (3.5-5.1)
[2017-07-13 07:15] LABS: MAGNESIUM 1.8 mg/dl (1.7-2.5); PHOSPHORUS 4.8 mg/dl (2.5-4.9)
[2017-07-13] MEDS: SILVER SULFADIAZINE 1% 25 GM CR TOP SCH (09:00)
[2017-07-13] MEDS: FUROSEMIDE 40 MG TAB PO SCH (09:04)
[2017-07-13] MEDS: CLOPIDOGREL 75 MG TAB PO SCH (09:04)
[2017-07-13] MEDS: ASPIRIN 81 MG TAB NGT SCH (09:04)
[2017-07-13] MEDS: FERROUS SULFATE (EC) 325 MG TAB PO SCH ×2 (09:04→21:43)
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
[2017-07-14] VITALS (12 sets, daily range): BP systolic 109–147; BP diastolic 58–67; PULSE 59–71; RESP 18–21
[2017-07-14] MEDS: PANTOPRAZOLE (EC) 40 MG TAB PO SCH ×2 (06:48→17:38)
[2017-07-14 08:12] LABS: BASOPHILS % 0.6 % (0.0-2.0); EOSINOPHILS # 0.1 10^3/ul (0.0-0.5); EOSINOPHILS % 0.9 % (0.0-7.0); HEMATOCRIT 31.1 % (37.0-47.0); LYMPHOCYTES # 1.2 10^3/ul (0.8-2.9); MEAN CORPUSCULAR HEMOGLOBIN 31.7 pg (29.0-33.0); MEAN CORPUSCULAR HGB CONC 32.2 g/dl (32.0-37.0); MEAN CORPUSCULAR VOLUME 98.7 fl (82.0-101.0); MEAN PLATELET VOLUME 10.4 fl (7.4-10.4); MONOCYTE # 0.7 10^3/ul (0.3-0.9); MONOCYTES % 11.5 % (0.0-11.0); PLATELET COUNT 233 10^3/UL (140-415); RED BLOOD COUNT 3.15 10^6/ul (4.20-5.40); WHITE BLOOD COUNT 6.4 10^3/ul (4.8-10.8)
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
[2017-07-14 08:40] LABS: CALCIUM 8.6 mg/dl (8.4-10.2); CREATININE 3.39 mg/dl (0.44-1.00); POTASSIUM 4.3 mmol/L (3.5-5.1)
[2017-07-14 08:54] LABS: MAGNESIUM 1.9 mg/dl (1.7-2.5); PHOSPHORUS 4.5 mg/dl (2.5-4.9)
[2017-07-14] MEDS: SILVER SULFADIAZINE 1% 25 GM CR TOP SCH (09:00)
[2017-07-14] MEDS: FUROSEMIDE 40 MG TAB PO SCH (09:44)
[2017-07-14] MEDS: FERROUS SULFATE (EC) 325 MG TAB PO SCH ×2 (09:44→20:26)
[2017-07-14] MEDS: ASPIRIN 81 MG TAB NGT SCH (09:44)
[2017-07-14] MEDS: CLOPIDOGREL 75 MG TAB PO SCH (09:44)
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
[2017-07-15] VITALS (12 sets, daily range): BP systolic 131–140; BP diastolic 62–71; PULSE 59–67; RESP 18–20
[2017-07-15] MEDS: PANTOPRAZOLE (EC) 40 MG TAB PO SCH ×2 (05:43→17:48)
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
[2017-07-15] MEDS: SILVER SULFADIAZINE 1% 25 GM CR TOP SCH (09:00)
[2017-07-15] MEDS: ASPIRIN 81 MG TAB NGT SCH (09:00)
[2017-07-15] MEDS: FUROSEMIDE 40 MG TAB PO SCH (09:00)
[2017-07-15] MEDS: CLOPIDOGREL 75 MG TAB PO SCH (09:00)
[2017-07-15] MEDS: FERROUS SULFATE (EC) 325 MG TAB PO SCH ×2 (09:00→21:00)
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
[2017-07-15 15:40] LABS: CALCIUM 8.4 mg/dl (8.4-10.2); CREATININE 3.27 mg/dl (0.44-1.00); POTASSIUM 4.1 mmol/L (3.5-5.1)
[2017-07-15 16:05] LABS: MAGNESIUM 1.8 mg/dl (1.7-2.5); PHOSPHORUS 4.3 mg/dl (2.5-4.9)
[2017-07-16] VITALS (8 sets, daily range): BP systolic 118–138; BP diastolic 51–64; PULSE 59–62; RESP 19–20
[2017-07-16] MEDS: PANTOPRAZOLE (EC) 40 MG TAB PO SCH ×2 (06:00→18:27)
[2017-07-16 08:21] LABS: CALCIUM 8.5 mg/dl (8.4-10.2); CREATININE 2.99 mg/dl (0.44-1.00); POTASSIUM 4.1 mmol/L (3.5-5.1)
[2017-07-16] MEDS: SILVER SULFADIAZINE 1% 25 GM CR TOP SCH (09:00)
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
[2017-07-16] MEDS: CLOPIDOGREL 75 MG TAB PO SCH (09:35)
[2017-07-16] MEDS: FUROSEMIDE 40 MG TAB PO SCH (09:35)
[2017-07-16] MEDS: ASPIRIN 81 MG TAB NGT SCH (09:35)
[2017-07-16] MEDS: FERROUS SULFATE (EC) 325 MG TAB PO SCH (09:35)
[2017-07-16] MEDS: morphine 2 MG INJ IV PRN (11:45)
--- NOTE | 2017-07-16 12:56 | CONS ---
Date/Time of Note Date/Time of Note DATE: 07/16/17 TIME: 12:54 Assessment/Plan Assessment/Plan Additional Assessment/Plan Assessment recommendations; 1. Patient admitted with syncope due to pacemaker malfunction status post replacement. Patient required prolonged mechanical ventilation due to metabolic encephalopathy with marked overall clinical improvement now. 2. Coronary artery disease. 3. Chronic renal insufficiency. Continue current treatment. Consider discharge. Consultation Date/Type/Reason Admit Date/Time Jul 02, 2017 at 09:58 Type of Consultation: Pulmonary Referring Provider: JACQUE MARTINEZ 24 HR Interval Summary Free Text/Dictation Patient condition stable. Remains awake and alert. Has remained hemodynamically stable. General exam; elderly woman, awake and alert. Currently in no distress. Exam/Review of Systems Vital Signs Vitals Vital Signs Date Time Temp Pulse Resp B/P Pulse Ox O2 Delivery O2 Flow Rate FiO2 07/16/17 12:02 59 07/16/17 07:13 98.0 19 118/64 95 Intake and Output 07/15/17 07/15/17 07/16/17 15:00 23:00 07:00 Intake Total 800 ml Balance 800 ml Exam HEENT exam; supple neck, no JVD. No lymphadenopathy. Midline trachea. No thyromegaly. Patient is edentulous and wears dentures. Bilateral intraocular lens implants. Chest exam; clear to auscultation. S1-S2 audible, no murmurs. Regular rhythm. Abdomen exam; soft, no organomegaly. Bowel sounds audible. Extremity exam; no peripheral edema. WELLNESS NURSE exam; no focal deficit. Results Result Diagram: 07/14/17 0655 07/16/17 0652 Results 24 hrs Laboratory Tests Test 07/15/17 14:59 07/15/17 15:01 07/16/17 06:52 Phosphorus Level 4.3 Magnesium Level 1.8 1.8 Sodium Level 141 139 Potassium Level 4.1 4.1 Chloride Level 96 L 99 Carbon Dioxide Level 31 30 Anion Gap 18 H 14 Blood Urea Nitrogen 62 H 60 H Creatinine 3.27 H 2.99 H Glucose Level 110 84 Calcium Level 8.4 8.5 Medications Medications Current Medications Ondansetron HCl (Zofran Inj) 4 mg Q6H PRN IV NAUSEA AND/OR VOMITING Last administered on 07/05/17t 14:33; Admin Dose 4 MG; Start 07/02/17 at 12:00 Acetaminophen (Tylenol Liquid) 650 mg Q6H PRN PO PAIN LEVEL 1-3 OR FEVER; Start 07/02/17 at 12:00 Acetaminophen (Tylenol Tab) 650 mg Q6H PRN PO PAIN LEVEL 1-3 OR FEVER Last administered on 07/16/17 00:54; Admin Dose 650 MG; Start 07/02/17 at 12:00 Morphine Sulfate (morphine) 2 mg Q4H PRN IV PAIN LEVEL 7-10 Last administered on 07/16/17 11:45; Admin Dose 2 MG; Start 07/02/17 at 12:00 Docusate Sodium (Colace) 100 mg Q12H PRN PO CONSTIPATION; Start 07/02/17 at 12: 00 Magnesium Hydroxide (Milk Of Mag) 30 ml DAILY PRN PO CONSTIPATION; Start at 12:00 Ferrous Sulfate (Ferrous Sulfate (Ec)) 325 mg BID PO Last administered on 09:35; Admin Dose 325 MG; Start 07/02/17 at 21:00 Bisacodyl (Dulcolax Supp) 10 mg DAILY PRN [place] CONSTIPATION; Start 07/02/17 at 12 :30 Miscellaneous Information 1 ea NOTE XX ; Start 07/02/17 at 14:00 Glucose (Glutose) 15 gm Q15M PRN PO DECREASED GLUCOSE; Start 07/02/17 at 14:00 Glucose (Glutose) 22.5 gm Q15M PRN PO DECREASED GLUCOSE; Start 07/02/17 at 14: 00 Dextrose (D50w Syringe) 25 ml Q15M PRN IV DECREASED GLUCOSE; Start 07/02/17 at 14:00 Dextrose (D50w Syringe) 50 ml Q15M PRN IV DECREASED GLUCOSE; Start 07/02/17 at 14:00 Glucagon (Glucagen) 1 mg Q15M PRN IM DECREASED GLUCOSE; Start 07/02/17 at 14:00 Glucose (Glutose) 15 gm Q15M PRN BUCCAL DECREASED GLUCOSE; Start 07/02/17 at 14 :00 Acetaminophen (Tylenol Tab) 650 mg Q4H PRN PO NON-CARDIAC PAIN LEVEL (1-3); Start 07/02/17 at 18:00 Aspirin (Aspirin) 81 mg DAILY NGT Last administered on 07/16/17 09:35; Admin Dose 81 MG; Start 07/03/17 at 09:00 Silver Sulfadiazine (Thermazene 1% 25 Gm) 1 applic DAILY TOP Last administered on 07/12/17 09:21; Admin Dose 1 APPLIC; Start 07/03/17 at 09:00 Clopidogrel Bisulfate (plaVIX) 75 mg DAILY PO Last administered on 07/16/17 09: 35; Admin Dose 75 MG; Start 07/06/17 at 14:00 IV Flush (NS 10 ml) 10 ml PRN PRN IV IV PROTOCOL; Start 07/06/17 at 15:30 Quetiapine Fumarate (Seroquel) 12.5 mg HS PRN PO agitation Last administered on 07/07/17 23:08; Admin Dose 12.5 MG; Start 07/07/17 at 14:00 Furosemide (Lasix) 40 mg DAILY PO Last administered on 07/16/17 09:35; Admin Dose 40 MG; Start 07/11/17 at 09:00 Pantoprazole (Protonix Tab) 40 mg BID@,18 PO Last administered on 07/16/17 06 :00; Admin Dose 40 MG; Start 07/12/17 at 18:00 NIKKI ONEAL Jul 16, 2017 12:56
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
[2017-07-16] MEDS ORDERED: FURO40TA4 PO (13:58)
[2017-07-16] MEDS ORDERED: SSD1C20 TOP (13:58)
[2017-07-16] MEDS ORDERED: APIX2.5T PO (14:00)
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
[2017-07-16] MEDS ORDERED: APIXABAN 5 MG TABLET PO SCH (21:00)
== END 2017-07-16 19:39 | disposition home health service (06) | DRG 245 ==
LOC: E/R 08:27 → ICU 09:58 → TEL 07-06 21:13
PROVIDERS: ADMIT Internal Medicine; ATTEND Internal Medicine
PROC: 0JPT0PZ Removal of Cardiac Rhythm Related Device from Trunk Subcutaneous Tissue and Fascia, Open Approach (ICD-10-PCS; 2017-07-02)
PROC: 5A1945Z Respiratory Ventilation, 24-96 Consecutive Hours (ICD-10-PCS; 2017-07-02)
PROC: 0BH17EZ Insertion of Endotracheal Airway into Trachea, Via Natural or Artificial Opening (ICD-10-PCS; 2017-07-02)
PROC: 06HM33Z Insertion of Infusion Device into Right Femoral Vein, Percutaneous Approach (ICD-10-PCS; 2017-07-02)
PROC: B54BZZA Ultrasonography of Right Lower Extremity Veins, Guidance (ICD-10-PCS; 2017-07-02)
PROC: 0JH608Z Insertion of Defibrillator Generator into Chest Subcutaneous Tissue and Fascia, Open Approach (ICD-10-PCS; principal; 2017-07-02 16:00)
PROC: 02HV33Z Insertion of Infusion Device into Superior Vena Cava, Percutaneous Approach (ICD-10-PCS; 2017-07-06)
PROC: 0JB60ZZ Excision of Chest Subcutaneous Tissue and Fascia, Open Approach (ICD-10-PCS; 2017-07-09)
DX: T82.897A Other specified complication of cardiac prosthetic devices, implants and grafts, initial encounter (principal); I46.9 Cardiac arrest, cause unspecified; I21.4 Non-ST elevation (NSTEMI) myocardial infarction; I50.41 Acute combined systolic (congestive) and diastolic (congestive) heart failure; J96.01 Acute respiratory failure with hypoxia; N17.0 Acute kidney failure with tubular necrosis; R57.0 Cardiogenic shock; E87.2 Acidosis; I95.9 Hypotension, unspecified; I13.0 Hypertensive heart and chronic kidney disease with heart failure and stage 1 through stage 4 chronic kidney disease, or unspecified chronic kidney disease; G92 Toxic encephalopathy; F05 Delirium due to known physiological condition; T21.31XA Burn of third degree of chest wall, initial encounter; D69.6 Thrombocytopenia, unspecified; I48.0 Paroxysmal atrial fibrillation; I49.5 Sick sinus syndrome; I25.5 Ischemic cardiomyopathy; R73.9 Hyperglycemia, unspecified; I44.30 Unspecified atrioventricular block; E87.5 Hyperkalemia; N18.9 Chronic kidney disease, unspecified; E78.5 Hyperlipidemia, unspecified; I25.10 Atherosclerotic heart disease of native coronary artery without angina pectoris; Z86.73 Personal history of transient ischemic attack (TIA), and cerebral infarction without residual deficits; I45.5 Other specified heart block; Y83.8 Other surgical procedures as the cause of abnormal reaction of the patient, or of later complication, without mention of misadventure at the time of the procedure; N28.1 Cyst of kidney, acquired; Z95.0 Presence of cardiac pacemaker; F03.90 Unspecified dementia, unspecified severity, without behavioral disturbance, psychotic disturbance, mood disturbance, and anxiety; R74.0 Nonspecific elevation of levels of transaminase and lactic acid dehydrogenase [LDH]
CPT/HCPCS: 31500; 33227; 33264; 36569; 36600; 71010; 76775; 76937; 80048; 80053; 80061; 80069; 81003; 82550; 82553; 82570; 82803; 82962; 83036; 83605; 83735; 83880; 84100; 84300; 84439; 84443; 84484; 84560; 85025; 85610; 85730; 87070; 87075; 87081; 87102; 87116; 88304; 89190; 92526; 92610; 92950; 93005; 93306; 94002; 94003; 94640; 94770; 96361; 96374; 96375; 96376; 97110; 97116; 97162; 97530; J1940; C1786; C9113; J0171; J0282; J0461; J0690; J1170; J1265; J1815; J2250; J2270; J2405; J3010; J3475; J7030; J7040; J7070; P9047; Q4118

== ENCOUNTER 2017-09-25 16:41 | Inpatient (IN) | payer OTHER ==
[~2017-09-25] VITALS: Ht 157.5 cm; Wt 77.0 kg
[~2017-09-25 16:41] MED LIST changes: -AMIODARONE 150 MG INJ ONE; +APIX2.5T PO; -ASCO500S2 PO; +ATOR20TA38 PO; -ATROPINE 1 MG/10 ML SYRINGE ONE; -BENA5TAB2 PO; -CA CHLORIDE 10% 10 ML SYRINGE ONE; -CARAS PO; -CARV12.579 PO; +CARV3.1260 PO; -DOPamine-D5W 1.6 MG/ML 250 ML ONE; -EPINEPHrine 0.1 MG/ML SYG ONE; -ETOMIDATE 20 MG INJ ONE; -FURO-109 PO; +FURO40TA4 PO; -IPRA4AER IH; +MIRT15TA5 PO; -NA BICARBONATE 8.4% 50 ML SYG ONE; +OMEP40CA6 PO; -PANT40TA3 PO; -ROCURONIUM 50 MG INJ ONE; -SPIR25TA PO; +SSD1C20 TOP
--- NOTE | 2017-09-25 17:39 | ERD ---
ER Documentation Chief Complaint Chief Complaint Complains of SOB x 1 week , Hx of Pace maker, HTN, lower ext swelling HPI 86-year-old woman presents with bilateral lower extremity edema and shortness of breath 1 week. She states she has been using her Lasix as prescribed. She denies chest pain, no fevers or chills, no headache or blurry vision, no vomiting or diarrhea. ROS All systems reviewed and are negative except as per history of present illness. Medications Home Meds Active Scripts Cephalexin* (Keflex*) 500 Mg Capsule, 500 MG PO QID for 5 Days, CAP Prov:TACO KARIMI MD 09/25/17 Apixaban* (Eliquis*) 2.5 Mg Tablet, 2.5 MG PO BID for 30 Days, TAB 3 Refills Prov:JACQUE MARTINEZ 07/16/17 Silver Sulfadiazine (THERMAZENE 1% 25 GM) 1 Applic Cr, 1 APPLIC TOP DAILY for 30 Days, 3 Refills Wound care instructions Prov:JACQUE MARTINEZ 07/16/17 Furosemide* (Furosemide*) 40 Mg Tablet, 40 MG PO DAILY for 30 Days, TAB 3 Refills Prov:JACQUE MARTIENZ 07/16/17 Ferrous Sulfate* (Ferrous Sulfate*) 325 Mg Tabec, 325 MG PO BID for 30 Days Prov:LINDA SAMSON 10/10/14 Reported Medications Mirtazapine* (Mirtazapine*) 15 Mg Tablet, 15 MG PO HS, TAB 07/02/17 Omeprazole* (Omeprazole*) 40 Mg Capsule.dr, 40 MG PO AC BREAKFAST, #30 CAP 07/02/17 Atorvastatin Calcium* (Atorvastatin Calcium*) 20 Mg Tablet, 20 MG PO QHS, #30 TAB 07/02/17 Carvedilol* (Carvedilol*) 3.125 Mg Tablet, 3.125 MG PO BID, #60 TAB 07/02/17 Docusate Sodium* (Colace*) 250 Mg Capsule, 250 MG PO DAILY, CAP 09/27/14 Allergies Allergies: Coded Allergies: albumin colloid, human (Unverified Allergy, Severe, Jehovah Wirmissy, ) No Known Allergies (Verified Allergy, Unknown, 10/11/14) Uncoded Allergies: JEHOVAH WITNESS (Allergy, Unknown, CAUTION W/ BLOOD PRODUCTS CHECK LIST OF ACCEPTABLE PRODUCTS, 09/28/14) PMhx/Soc Status post cardiac arrest, sick sinus syndrome, paroxysmal atrial fibrillation , CAD and ischemic cardiomyopathy with a depressed left ventricular ejection fraction, hypertension, diabetes mellitus, previous GI bleed, peripheral vascular disease, previous stroke, pacemaker placement History of Surgery: Yes (hip repair sx) Anesthesia Reaction: No Hx Neurological Disorder: No Hx Respiratory Disorders: No Hx Cardiac Disorders: Yes (CHF, HTN, A-fib, PVD, High Cholesterol, Pacer) Hx Psychiatric Problems: No Hx Miscellaneous Medical Probl: Yes (See EMR for detail. ) Hx Alcohol Use: No Hx Substance Use: No Hx Tobacco Use: No FmHx Family History: No diabetes Physical Exam Vitals Vital Signs Date Time Temp Pulse Resp B/P Pulse Ox O2 Delivery O2 Flow Rate FiO2 09/25/17 19:30 78 20 122/71 97 Room Air 09/25/17 16:44 97.2 64 20 124/65 97 Physical Exam GENERAL: Well-developed, well-nourished, well-hydrated, dyspneic, afebrile HEENT: Moist mucous membranes, pink conjunctiva, no cervical spine tenderness or step-off deformities, no goiter, no jaundice or icterus, extraocular movements intact without pain. No submandibular induration, and no pharyngeal erythema NEURO: Alert and oriented 3, cranial nerves II through XII intact bilaterally, pupils equal round reactive to light, no focal deficits or facial asymmetry, sensation intact distally Strength 5/5 in upper and lower extremities bilaterally CARDIAC: Regular rate and rhythm, no murmurs rubs or gallops LUNGS: Dense crackles at the bases, no wheezing or stridor ABDOMEN: Soft nontender, no guarding, no rigidity, no rebound, no psoas sign no obturator sign. Normoactive bowel sounds SKIN: Warm and dry to touch, no abrasions, contusions, or hematomas, no lacerations, no ecchymosis, no target lesions, and without ulcers EXTREMITIES: No clubbing cyanosis, 3+ pitting edema in the lower extremities bilaterally, calves are bilaterally symmetrical, no Homans sign, no popliteal cord sign. Distal pulses equal and bilateral PSYCH: Normal affect without agitation or irritability Result Diagram: 09/25/17174909/25/171749 Results 24 hrs Laboratory Tests Test 09/25/17 17:50 White Blood Count 4.510^3/ul Red Blood Count 3.4610^6/ul Hemoglobin 10.3g/dl Hematocrit 33.8% Mean Corpuscular Volume 97.7fl Mean Corpuscular Hemoglobin 29.8pg Mean Corpuscular Hemoglobin Concent 30.5g/dl Red Cell Distribution Width 14.6% Platelet Count 67186^3/UL Mean Platelet Volume 10.2fl Neutrophils % 64.7% Lymphocytes % 20.0% Monocytes % 12.9% Eosinophils % 1.3% Basophils % 0.7% Nucleated Red Blood Cells % 0.0/100WBC Neutrophils # 2.910^3/ul Lymphocytes # 0.910^3/ul Monocytes # 0.610^3/ul Eosinophils # 0.110^3/ul Basophils # 0.010^3/ul Nucleated Red Blood Cells # 0.010^3/ul Prothrombin Time 18.9Sec Prothrombin Time Ratio 1.5 INR International Normalized Ratio 1.57 Sodium Level 145mmol/L Potassium Level 5.1mmol/L Chloride Level 108mmol/L Carbon Dioxide Level 24mmol/L Anion Gap 18 Blood Urea Nitrogen 27mg/dl Creatinine 1.65mg/dl Glucose Level 112mg/dl Calcium Level 9.4mg/dl Total Bilirubin 0.4mg/dl Direct Bilirubin 0.00mg/dl Indirect Bilirubin 0.4mg/dl Aspartate Amino Transf (AST/SGOT) 35IU/L Alanine Aminotransferase (ALT/SGPT) 25IU/L Alkaline Phosphatase 110IU/L Troponin I 0.013ng/ml B-Type Natriuretic Peptide 5040PG/ML Total Protein 7.8g/dl Albumin 4.2g/dl Globulin 3.60g/dl Albumin/Globulin Ratio 1.16 Lipase 109U/L Current Medications Medications (Trade) Dose Ordered Sig/Marshall Route PRN Reason Start Time Stop Time Status Last Admin Dose Admin Aspirin (Aspirin) 162 mg ONCE ONCE PO 09/25/17 18:00 09/25/17 18:01 DC 09/25/17 18:18 Furosemide (Lasix) 60 mg ONCE ONCE IV 09/25/17 18:00 09/25/17 18:01 DC 09/25/17 18:18 Procedures/[facility] IV line was established 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 Patient was afebrile One AP view of the chest performed, read by me reveals no acute infiltrates, positive cardiomegaly, pacemaker in the left chest, no pneumothorax. EKG performed, read by me revealed a wide-complex paced rhythm at 60 bpm, no concerning ST elevations or depressions. I administered aspirin 162 mg p.o. for cardioprotective measures and furosemide 60 mg IV 1. CBC was unremarkable, electrolytes revealed kidney injury and dehydration with a BUN creatinine of 27/1.7, liver function tests were normal, troponin was negative. BNP elevated over 5000. Patient admitted to telemetry setting for continued medical management cardiology consultation. Departure Diagnosis: Primary Impression: Acute kidney injury Additional Impression: Acute CHF Congestive heart failure type: systolic Qualified Code: I50.21 - Acute systolic congestive heart failure Condition: TACO Cox MD Sep 25, 2017 17:39
[2017-09-25] MEDS ORDERED: FUROSEMIDE 40 MG INJ IV ONE (18:00)
[2017-09-25] MEDS ORDERED: ASPIRIN 81 MG TAB PO ONE (18:00)
[2017-09-25 18:19] LABS: BASOPHILS % 0.7 % (0.0-2.0); EOSINOPHILS # 0.1 10^3/ul (0.0-0.5); EOSINOPHILS % 1.3 % (0.0-7.0); HEMATOCRIT 33.8 % (37.0-47.0); HEMOGLOBIN 10.3 g/dl (12.0-16.0); LYMPHOCYTES # 0.9 10^3/ul (0.8-2.9); MEAN CORPUSCULAR HEMOGLOBIN 29.8 pg (29.0-33.0); MEAN CORPUSCULAR HGB CONC 30.5 g/dl (32.0-37.0); MEAN CORPUSCULAR VOLUME 97.7 fl (82.0-101.0); MEAN PLATELET VOLUME 10.2 fl (7.4-10.4); MONOCYTE # 0.6 10^3/ul (0.3-0.9); MONOCYTES % 12.9 % (0.0-11.0); NEUTROPHIL # 2.9 10^3/ul (1.6-7.5); NEUTROPHILS % 64.7 % (39.0-77.0); PLATELET COUNT 161 10^3/UL (140-415); RED BLOOD COUNT 3.46 10^6/ul (4.20-5.40); RED CELL DISTRIBUTION WIDTH 14.6 % (11.5-14.5); WHITE BLOOD COUNT 4.5 10^3/ul (4.8-10.8)
--- NOTE | 2017-09-25 18:22 | RADRPT ---
PROCEDURE: XR Chest. CLINICAL INDICATION: Abdominal pain. TECHNIQUE: Single frontal view of the chest. COMPARISON: 07/08/2017. FINDINGS: Previously seen left anterior chest wall single chamber cardiac pacer is without significant global climate change researcher interval. Cardiomegaly. Atherosclerotic calcifications in the thoracic aorta. Substantially imp roved mild retrocardiac atelectasis versus airspace disease. Small bilateral pleural effusions. No s igns of pneumothorax are seen. The osseous structures and soft tissues are unremarkable. IMPRESSION: Mild retrocardiac atelectasis versus airspace disease, which is substantially improved over interval , with small bilateral pleural effusions. RPTAT: [facility] Physician Amyaa Date Time Electronically viewed and signed by Physician Amaya on 09/25/2017 18:22 RS/
[2017-09-25 18:36] LABS: INR 1.57; PROTIME 18.9 Sec (12.2-14.2); PT RATIO 1.5
[2017-09-25 18:40] LABS: ALBUMIN 4.2 g/dl (3.3-4.9); ALBUMIN/GLOBULIN RATIO 1.16; BILIRUBIN,INDIRECT 0.4 mg/dl (0-1.1); BILIRUBIN,TOTAL 0.4 mg/dl (0.2-1.3); CALCIUM 9.4 mg/dl (8.4-10.2); CREATININE 1.65 mg/dl (0.44-1.00); POTASSIUM 5.1 mmol/L (3.5-5.1); TOTAL PROTEIN 7.8 g/dl (6.1-8.1)
[2017-09-25 18:52] LABS: TROPONIN-I 0.013 ng/ml (0.00-0.12)
[2017-09-25] MEDS ORDERED: CEPH-443 PO (18:58)
[2017-09-25 22:07] VITALS: PULSE 69
[2017-09-25] MEDS ORDERED: NACL 0.9% 3 ML SYG IV SCH (23:30)
[2017-09-25] MEDS ORDERED: ONDANSETRON 4 MG TAB PO PRN (23:30)
[2017-09-25] MEDS ORDERED: ACETAMINOPHEN 325 MG TAB PO PRN (23:30)
[2017-09-25] MEDS ORDERED: DOCUSATE SODIUM 100 MG CAP PO PRN (23:30)
[2017-09-25] MEDS: FAMOTIDINE 20 MG TAB PO SCH (23:52)
[2017-09-25] MEDS: CEPHALEXIN 500 MG CAP PO SCH (23:52)
[2017-09-25] MEDS: APIXABAN 5 MG TABLET PO SCH (23:52)
[2017-09-26] VITALS (12 sets, daily range): BP systolic 93–116; BP diastolic 54–68; PULSE 59–70; RESP 16–18; Ht 157.5 cm; Wt 77.0 kg
[2017-09-26 06:32] LABS: BASOPHILS % 1.2 % (0.0-2.0); EOSINOPHILS # 0.1 10^3/ul (0.0-0.5); EOSINOPHILS % 1.5 % (0.0-7.0); HEMATOCRIT 30.2 % (37.0-47.0); HEMOGLOBIN 9.3 g/dl (12.0-16.0); LYMPHOCYTES # 0.7 10^3/ul (0.8-2.9); LYMPHOCYTES % 21.2 % (15.0-51.0); MEAN CORPUSCULAR HEMOGLOBIN 29.8 pg (29.0-33.0); MEAN CORPUSCULAR HGB CONC 30.8 g/dl (32.0-37.0); MEAN CORPUSCULAR VOLUME 96.8 fl (82.0-101.0); MEAN PLATELET VOLUME 10.1 fl (7.4-10.4); MONOCYTE # 0.4 10^3/ul (0.3-0.9); MONOCYTES % 12.9 % (0.0-11.0); NEUTROPHIL # 2.1 10^3/ul (1.6-7.5); NEUTROPHILS % 62.9 % (39.0-77.0); PLATELET COUNT 139 10^3/UL (140-415); RED BLOOD COUNT 3.12 10^6/ul (4.20-5.40); RED CELL DISTRIBUTION WIDTH 14.8 % (11.5-14.5); WHITE BLOOD COUNT 3.3 10^3/ul (4.8-10.8)
[2017-09-26 07:04] LABS: CALCIUM 9.4 mg/dl (8.4-10.2); CREATININE 1.54 mg/dl (0.44-1.00); POTASSIUM 4.5 mmol/L (3.5-5.1)
[2017-09-26 07:34] LABS: THYROID STIMULATING HORMONE 2.1 MIU/L (0.465-4.680)
[2017-09-26] MEDS ORDERED: BUMETANIDE 2 MG in DEXTROSE 5% 17 ML IVPB ONE ×3 (08:00)
[2017-09-26] MEDS: CEPHALEXIN 500 MG CAP PO SCH ×4 (08:51→20:20)
[2017-09-26] MEDS: SILVER SULFADIAZINE 1% 25 GM CR TOP SCH (08:51)
[2017-09-26] MEDS: DOCUSATE SODIUM 250 MG CAP PO SCH (08:51)
[2017-09-26] MEDS: APIXABAN 5 MG TABLET PO SCH ×2 (08:52→20:19)
[2017-09-26] MEDS: FAMOTIDINE 20 MG TAB PO SCH (08:52)
[2017-09-26] MEDS: FERROUS SULFATE (EC) 325 MG TAB PO SCH ×2 (08:52→20:20)
--- NOTE | 2017-09-26 12:06 | CONS ---
Date/Time of Note Date/Time of Note DATE: 09/26/17 TIME: 11:58 Assessment/Plan Assessment/Plan Additional Assessment/Plan Acute decompensated systolic congestive heart failure Cardiomyopathy with ejection fraction 25% Heart block status post history of pacemaker, pacer dependent Paroxysmal atrial fibrillation -Patient with lower extremity edema, chest x-ray with minimal pulmonary vascular congestion and BNP has improved since last admission. Would continue gentle IV diuretics as blood pressure and renal function permits, maintain potassium above 4.0 and magnesium above 2.0., Check serial cardiac enzymes, unfortunately there is no ECG in the chart, will order. Continue telemetry monitoring. If her blood pressure trend remains stable, consider initiation of afterload reduction given systolic dysfunction. Consultation Date/Type/Reason Admit Date/Time Sep 25, 2017 at 19:46 Type of Consultation: cv Reason for Consultation Shortness of breath Hx of Present Illness This is an 86-year-old female with past medical history of systolic congestive heart failure, heart block status post pacemaker, hypertension who presents with progressive worsening shortness of breath and lower extremity edema over the past week. Patient was hospitalized a few months ago secondary to pacemaker end-of-life with heart block and cardiac arrest. Patient underwent generator change of pacemaker at that time. In discussion with patient and son and granddaughter over the phone, patient's symptoms have progressed over the past week. Family thinks patient has been compliant with medications but when discussed diet, patient does make her own foods at times and does drink lots of soup. It is unclear if sodium is added to her foods. She denies any fever but does complain of chills, denies any chest pain. She does feel slightly better since admission but still feels short of breath at times. 12 point review of system was performed with all pertinent positives and negatives mentioned above and all else is negative Past Medical History Paroxysmal atrial fibrillation Heart block Medical History: congestive heart failure, hypertension Past Surgical History Past Surgical Hx: other (Pacemaker, skin graft) Family History Significant Family History: no pertinent family hx Social History Alcohol Use: none Smoking Status: Never smoker Exam/Review of Systems Vital Signs Vitals Vital Signs Date Time Temp Pulse Resp B/P Pulse Ox O2 Delivery O2 Flow Rate FiO2 09/26/17 08:21 59 09/26/17 08:04 98.0 18 102/54 98 09/25/17 21:43 Room Air Intake and Output 09/25/17 09/25/17 09/26/17 14:59 22:59 06:59 Intake Total 225 ml Output Total 2000 ml Balance -1775 ml Exam No dyspnea with speaking, appears comfortable, son at bedside, no apparent distress Constitutional: alert, oriented Head: normocephalic Respiratory: other (Coarse breath sounds bilaterally, no wheezing) Cardiovascular: other (S1-S2 heard), regular rate and rhythm Gastrointestinal: bowel sounds, non-tender, soft Extremities: edema (+2-3 pitting) Results Result Diagram: 09/26/1719 09/26/17 0619 Results 24 hrs Laboratory Tests Test 09/25/17 17:50 09/26/17 06:19 White Blood Count 4.5 #L 3.3 #L Red Blood Count 3.46 L 3.12 L Hemoglobin 10.3 L 9.3 L Hematocrit 33.8 L 30.2 L Mean Corpuscular Volume 97.7 96.8 Mean Corpuscular Hemoglobin 29.8 29.8 Mean Corpuscular Hemoglobin Concent 30.5 L 30.8 L Red Cell Distribution Width 14.6 H 14.8 H Platelet Count 161 # 139 L Mean Platelet Volume 10.2 10.1 Neutrophils % 64.7 62.9 Lymphocytes % 20.0 21.2 Monocytes % 12.9 H 12.9 H Eosinophils % 1.3 1.5 Basophils % 0.7 1.2 Nucleated Red Blood Cells % 0.0 0.0 Neutrophils # 2.9 2.1 Lymphocytes # 0.9 0.7 L Monocytes # 0.6 0.4 Eosinophils # 0.1 0.1 Basophils # 0.0 0.0 Nucleated Red Blood Cells # 0.0 0.0 Prothrombin Time 18.9 H Prothrombin Time Ratio 1.5 INR International Normalized Ratio 1.57 Sodium Level 145 H 144 Potassium Level 5.1 4.5 Chloride Level 108 108 Carbon Dioxide Level 24 27 Anion Gap 18 H 14 Blood Urea Nitrogen 27 H 28 H Creatinine 1.65 H 1.54 H Glucose Level 112 86 Calcium Level 9.4 9.4 Total Bilirubin 0.4 Direct Bilirubin 0.00 Indirect Bilirubin 0.4 Aspartate Amino Transf (AST/SGOT) 35 Alanine Aminotransferase (ALT/SGPT) 25 Alkaline Phosphatase 110 Troponin I 0.013 B-Type Natriuretic Peptide 5040 H Total Protein 7.8 Albumin 4.2 Globulin 3.60 H Albumin/Globulin Ratio 1.16 Lipase 109 Thyroid Stimulating Hormone (TSH) 2.100 Medications Medications Current Medications Apixaban (Eliquis) 2.5 mg BID PO Last administered on 09/26/17 08:52; Admin Dose 2.5 MG; Start 09/25/17 at 23:30 Atorvastatin Calcium (Lipitor) 20 mg QHS PO ; Start 09/26/17 at 21:00 Carvedilol (Coreg) 3.125 mg BID PO Last administered on 09/26/17 08:52; Admin Dose 3.125 MG; Start 09/25/17 at 23:30 Cephalexin (Keflex) 500 mg QID PO Last administered on 09/26/17 08:51; Admin Dose 500 MG; Start 09/25/17 at 23:30 Docusate Sodium (Colace) 250 mg DAILY PO Last administered on 09/26/17 08:51 ; Admin Dose 250 MG; Start 09/26/17 at 09:00 Ferrous Sulfate (Ferrous Sulfate (Ec)) 325 mg BID PO Last administered on 09/26 08:52; Admin Dose 325 MG; Start 09/26/17 at 09:00 Mirtazapine (Remeron) 15 mg HS PO ; Start 09/26/17 at 21:00 Silver Sulfadiazine (Thermazene 1% 25 Gm) 1 applic DAILY TOP Last administered on 09/26/17 08:51; Admin Dose 1 APPLIC; Start 09/26/17 at 09:00 Ondansetron HCl (Zofran Tab) 4 mg Q6H PRN PO NAUSEA AND/OR VOMITING; Start 10/01 at 23:30 Acetaminophen (Tylenol Tab) 650 mg Q6H PRN PO PAIN LEVEL 1-3 OR FEVER; Start 09/25/17 at 23:30 Docusate Sodium (Colace) 100 mg Q12H PRN PO CONSTIPATION; Start 09/25/17 at 23 :30 Famotidine (Pepcid) 20 mg DAILY PO Last administered on 09/26/17 08:52; Admin Dose 20 MG; Start 09/25/17 at 23:30 Shady Griffin DO Sep 26, 2017 12:06
[2017-09-26] MEDS: FUROSEMIDE 20 MG INJ IV SCH ×2 (13:20→22:25)
[2017-09-26 14:32] LABS: CREATINE KINASE 22 IU/L (23-200)
[2017-09-26 14:48] LABS: TROPONIN-I < 0.012 ng/ml (0.00-0.12)
--- NOTE | 2017-09-26 19:05 | HP ---
DATE OF ADMISSION: 09/25/2017 Please note the history of present illness is obtained through looking through old records and commu nicating through software application tester as the patient only speaks Bel[place]ian. CHIEF COMPLAINT: "My legs have been swollen and I am short of breath." HISTORY OF PRESENT ILLNESS: The patient is a pleasant 86-year-old [place]ian-speaking female with a p ast medical history including cardiomyopathy, a sick sinus syndrome, status post pacemaker placement and subsequent failure in late 06/2017 and a prolonged hospitalization, hypertension, reactive airw ay disease, and hyperlipidemia as well as previous CVA without significant neurologic deficits, who presents to the hospital with shortness of breath and lower extremity edema for approximately 5 days . The patient was hospitalized a few months ago secondary to pacemaker end of life with heart block and cardiac arrest. She underwent generator change of the pacemaker at that time. The patient's s on and daughter stated that the patient's symptoms have progressed over the past week and the family believes that she has been compliant with her medications; however, they are unclear about her diet . That is, the patient states that she makes her own food, and this includes soup. It is unclear i f there is a lot of added salt to the soup or her other foods. She does present with pitting edema and shortness of breath. However, she denies any fever, nausea, vomiting, or chest pain. She was g iven 2 mg of Bumex twice as well as intravenous Lasix 20 mg every 8 hours and her edema has signific antly decreased. Currently, she is lying flat in bed without any oxygen. She has ambulated to the bathroom and within her room. PAST MEDICAL HISTORY: 1. Paroxysmal atrial fibrillation, now in sinus rhythm. 2. Complete heart block, status post emergent pacemaker battery change secondary to cardiac arrest and pacemaker being end of life. 3. Cardiomyopathy. 4. Hypertension. 5. Reactive airway disease. 6. Hyperlipidemia. 7. Cerebrovascular accident with very mild residual motor deficit. PAST SURGICAL HISTORY: The patient had the pacemaker placement and a skin graft in the past. FAMILY HISTORY: Essentially noncontributory in this pleasant 86-year-old female. SOCIAL HISTORY: No alcohol or tobacco use. She lives at home, does not use assistive devices, and cooks her food. REVIEW OF SYSTEMS: Negative except as stated in the history of present illness. PHYSICAL EXAMINATION: VITAL SIGNS: Her temperature is 98.0, blood pressure 112/68, pulse rate of 78, respiratory rate of 18, oxygen saturation is 98% on room air. HEENT: Normocephalic, atraumatic. Her extraocular movements are intact. Her pupils are equal, rou nd, and react to light and accommodation. Oropharynx is dry and clear. NECK: No JVD was noted. No thyromegaly was noted. CARDIOVASCULAR: She had a regular rate and rhythm without appreciable murmurs, rubs, or gallops. LUNGS: She had diminished lung sounds bilaterally with minor crackles at the bases. ABDOMEN: Soft, nontender, nondistended. Normoactive bowel sounds present in all 4 quadrants. EXTREMITIES: She has trace to 1+ edema bilaterally in the lower extremities through the mid-calf. She also has tenderness to palpation in her lower extremities. NEUROLOGIC: She is alert and oriented x4. Cranial nerves II through XII are grossly intact. Her s trength and sensation was grossly intact. Her gait was not tested. LABORATORIES AND TESTS: Her PT was 18.9, INR 1.57. Sodium 144, potassium 4.5, chloride 108, bicarb [place] 27, anion gap 14, BUN 28, creatinine 1.54, glucose 86, calcium 9.4. Bilirubin total of 0.4, A ST 35, ALT 25, alkaline phosphatase 110, creatinine kinase 22. CK index 1.8, CK-MB 0.40. Troponins less than 0.012. BNP elevated at admission at 5040, total protein 7.8, albumin 3.2, globulin eleva manuel at 3.6, lipase 109. TSH normal at 2.1. Her white count is 4.5, hemoglobin 10.3, hematocrit of 33.8, platelet count of 161 with a normal differential. IMPRESSION: The patient is a very pleasant 86-year-old female with multiple medical problems who pr esents to the hospital for a 1-week history of increasing lower extremity edema and shortness of kenrick ath. She has received 2 doses of Bumex at 2 mg each, as well as 20 mg of intravenous Lasix and has diuresed very well. She is currently receiving Lasix 20 mg every 8 hours as prescribed by Dr. Natacha sánchez. She is comfortable, lying in bed flat without any respiratory distress. She appears closer to h er baseline; however, she does have some lower extremity edema. At this point, we will continue the Lasix as prescribed and get a physical therapy evaluation in the morning. The rest of her labs lorelei ts look pretty good and she is recovering well. I anticipate she should discharge in approximately 24 hours if she continues to improve. Of note, her white count was slightly lower today at 3.3 and her hemoglobin has dropped to 9.3. I do not see any significant clinical aspect to this drop. She appears to be asymptomatic. I will, however, order iron studies as well as B12 and folate. The res t of her medical problems appear to be stable at this point. As stated above, if she continues to i mprove, she can safely be discharged with close followup with her waste duster. She will likely nee d frequent monitoring as there may be some unintentional dietary aspects leading to her congestive h eart failure. Dictated By: YVETTE BLANTON MD SH/NTS Conf#: [id number] DID#: [id number] CC: CLARIBEL BRYSON MD;*End*
[2017-09-26] MEDS: MIRTAZAPINE 15 MG TAB PO SCH (20:19)
[2017-09-26] MEDS: ATORVASTATIN 20 MG TAB PO SCH (20:20)
[2017-09-27] VITALS (12 sets, daily range): BP systolic 80–129; BP diastolic 45–70; PULSE 59–67; RESP 16–18
[2017-09-27] MEDS: FUROSEMIDE 20 MG INJ IV SCH (05:28)
[2017-09-27] MEDS: DOCUSATE SODIUM 250 MG CAP PO SCH (08:45)
[2017-09-27] MEDS: CEPHALEXIN 500 MG CAP PO SCH ×4 (08:45→20:15)
[2017-09-27] MEDS: FAMOTIDINE 20 MG TAB PO SCH (08:45)
[2017-09-27] MEDS: FERROUS SULFATE (EC) 325 MG TAB PO SCH ×2 (08:45→20:16)
[2017-09-27] MEDS: APIXABAN 5 MG TABLET PO SCH ×2 (08:46→20:16)
[2017-09-27] MEDS: SILVER SULFADIAZINE 1% 25 GM CR TOP SCH (08:47)
[2017-09-27 11:12] LABS: BASOPHILS % 0.9 % (0.0-2.0); EOSINOPHILS % 1.1 % (0.0-7.0); HEMATOCRIT 29.3 % (37.0-47.0); HEMOGLOBIN 9.4 g/dl (12.0-16.0); LYMPHOCYTES # 0.6 10^3/ul (0.8-2.9); LYMPHOCYTES % 18.3 % (15.0-51.0); MEAN CORPUSCULAR HGB CONC 32.1 g/dl (32.0-37.0); MEAN CORPUSCULAR VOLUME 96.7 fl (82.0-101.0); MEAN PLATELET VOLUME 9.9 fl (7.4-10.4); MONOCYTE # 0.5 10^3/ul (0.3-0.9); MONOCYTES % 14.3 % (0.0-11.0); NEUTROPHIL # 2.3 10^3/ul (1.6-7.5); NEUTROPHILS % 65.1 % (39.0-77.0); PLATELET COUNT 143 10^3/UL (140-415); RED BLOOD COUNT 3.03 10^6/ul (4.20-5.40); RED CELL DISTRIBUTION WIDTH 14.7 % (11.5-14.5); WHITE BLOOD COUNT 3.5 10^3/ul (4.8-10.8)
[2017-09-27 11:39] LABS: IRON 61 ug/dl (35-150)
[2017-09-27 11:40] LABS: CALCIUM 8.9 mg/dl (8.4-10.2); CREATININE 1.53 mg/dl (0.44-1.00); POTASSIUM 4.6 mmol/L (3.5-5.1)
[2017-09-27 11:48] LABS: TOTAL IRON BINDING CAPACITY 248 ug/dl (241-421)
[2017-09-27] MEDS ORDERED: FUROSEMIDE 40 MG TAB PO SCH ×2 (12:30)
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
[2017-09-27 13:03] LABS: FOLATE 10.2 ng/ml (2.8-20.0)
--- NOTE | 2017-09-27 14:30 | CONS ---
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 Still with lower extremity edema, would give extra dose of IV diuretics today and transition to p.o. from tomorrow. Would DC beta-lanette at the current time, if blood pressure remains stable, would consider initiation of afterload reduction given systolic congestive heart failure Consultation Date/Type/Reason Admit Date/Time Sep 25, 2017 at 19:46 Initial Consult Date Type of Consultation: cv 24 HR Interval Summary Free Text/Dictation Patient seen and examined Exam/Review of Systems Vital Signs Vitals Vital Signs Date Time Temp Pulse Resp B/P Pulse Ox O2 Delivery O2 Flow Rate FiO2 09/27/17 12:27 60 09/27/17 11:42 98.3 18 120/70 98 09/25/17 21:43 Room Air Intake and Output 09/26/17 09/26/17 09/27/17 14:59 22:59 06:59 Intake Total 25 ml 800 ml 120 ml Output Total 1500 ml 1200 ml Balance 25 ml -700 ml -1080 ml Exam Following commands, seen ambulating in room, no dyspnea with speaking Constitutional: alert Head: normocephalic Respiratory: other (Coarse breath sounds bilaterally, no wheezing) Cardiovascular: other (S1-S2 heard), regular rate and rhythm Gastrointestinal: bowel sounds, non-tender, soft Extremities: edema Results Result Diagram: 09/27/17 1050 09/27/17 1050 Results 24 hrs Laboratory Tests Test 09/27/17 10:50 White Blood Count 3.5 L Red Blood Count 3.03 L Hemoglobin 9.4 L Hematocrit 29.3 L Mean Corpuscular Volume 96.7 Mean Corpuscular Hemoglobin 31.0 Mean Corpuscular Hemoglobin Concent 32.1 Red Cell Distribution Width 14.7 H Platelet Count 143 Mean Platelet Volume 9.9 Neutrophils % 65.1 Lymphocytes % 18.3 Monocytes % 14.3 H Eosinophils % 1.1 Basophils % 0.9 Nucleated Red Blood Cells % 0.0 Neutrophils # 2.3 Lymphocytes # 0.6 L Monocytes # 0.5 Eosinophils # 0.0 Basophils # 0.0 Nucleated Red Blood Cells # 0.0 Sodium Level 140 Potassium Level 4.6 Chloride Level 101 Carbon Dioxide Level 28 Anion Gap 16 Blood Urea Nitrogen 29 H Creatinine 1.53 H Glucose Level 119 Calcium Level 8.9 Iron Level 61 Total Iron Binding Capacity 248 Percent Iron Saturation 25 Vitamin B12 Level 398 Folate 10.2 Medications Medications Current Medications Apixaban (Eliquis) 2.5 mg BID PO Last administered on 09/27/17 08:46; Admin Dose 2.5 MG; Start 09/25/17 at 23:30 Atorvastatin Calcium (Lipitor) 20 mg QHS PO Last administered on 09/26/17 20: 20; Admin Dose 20 MG; Start 09/26/17 at 21:00 Carvedilol (Coreg) 3.125 mg BID PO Last administered on 09/27/17 08:46; Admin Dose 3.125 MG; Start 09/25/17 at 23:30 Cephalexin (Keflex) 500 mg QID PO Last administered on 09/27/17 12:41; Admin Dose 500 MG; Start 09/25/17 at 23:30 Docusate Sodium (Colace) 250 mg DAILY PO Last administered on 09/27/17 08:45 ; Admin Dose 250 MG; Start 09/26/17 at 09:00 Ferrous Sulfate (Ferrous Sulfate (Ec)) 325 mg BID PO Last administered on 09/27 08:45; Admin Dose 325 MG; Start 09/26/17 at 09:00 Mirtazapine (Remeron) 15 mg HS PO Last administered on 09/26/17 20:19; Admin Dose 15 MG; Start 09/26/17 at 21:00 Silver Sulfadiazine (Thermazene 1% 25 Gm) 1 applic DAILY TOP Last administered on 09/27/17 08:47; Admin Dose 1 APPLIC; Start 09/26/17 at 09:00 Ondansetron HCl (Zofran Tab) 4 mg Q6H PRN PO NAUSEA AND/OR VOMITING; Start 10/01 at 23:30 Acetaminophen (Tylenol Tab) 650 mg Q6H PRN PO PAIN LEVEL 1-3 OR FEVER; Start 09/25/17 at 23:30 Docusate Sodium (Colace) 100 mg Q12H PRN PO CONSTIPATION; Start 09/25/17 at 23 :30 Famotidine (Pepcid) 20 mg DAILY PO Last administered on 09/27/17 08:45; Admin Dose 20 MG; Start 09/25/17 at 23:30 Furosemide (Lasix) 40 mg DAILY PO Last administered on 09/27/17 12:42; Admin Dose 40 MG; Start 09/27/17 at 12:30 Shady Griffin DO Sep 27, 2017 14:30
--- NOTE | 2017-09-27 15:22 | RADRPT ---
PROCEDURE: XR Chest. CLINICAL INDICATION: Shortness of breath TECHNIQUE: Single portable view of the chest was obtained COMPARISON: October 15, 2014 FINDINGS: The trachea is midline. The cardiac silhouette and pulmonary vascularity are prominent. There is a l eft lower lobe infiltrate and small left pleural effusion. A left-sided single lead pacer device is noted IMPRESSION: 1. Cardiomegaly and pulmonary vascular congestion with left lower lobe infiltrate small left pleural effusion. No change since prior exam. RPTAT: AAPP Physician Alan Date Time Electronically viewed and signed by Physician Alan on 09/27/2017 15:22 JL/
[2017-09-27] MEDS ORDERED: FUROSEMIDE 20 MG INJ IV ONE (18:00)
[2017-09-27] MEDS: MIRTAZAPINE 15 MG TAB PO SCH (20:16)
[2017-09-27] MEDS: ATORVASTATIN 20 MG TAB PO SCH (20:16)
[2017-09-28] VITALS (11 sets, daily range): BP systolic 102–136; BP diastolic 52–70; PULSE 59–62; RESP 16–18
[2017-09-28] MEDS ORDERED: FUROSEMIDE 40 MG TAB PO SCH (06:00)
[2017-09-28] MEDS: FERROUS SULFATE (EC) 325 MG TAB PO SCH ×2 (08:25→20:58)
[2017-09-28] MEDS: FAMOTIDINE 20 MG TAB PO SCH (08:25)
[2017-09-28] MEDS: APIXABAN 5 MG TABLET PO SCH ×2 (08:26→20:58)
[2017-09-28] MEDS: DOCUSATE SODIUM 250 MG CAP PO SCH (08:26)
[2017-09-28] MEDS: SILVER SULFADIAZINE 1% 25 GM CR TOP SCH (08:32)
[2017-09-28] MEDS ORDERED: BUMETANIDE 1 MG TAB PO SCH (09:00)
[2017-09-28] MEDS: CEPHALEXIN 500 MG CAP PO SCH ×2 (10:02→13:43)
[2017-09-28 11:18] LABS: EOSINOPHILS # 0.1 10^3/ul (0.0-0.5); EOSINOPHILS % 1.7 % (0.0-7.0); HEMATOCRIT 33.2 % (37.0-47.0); HEMOGLOBIN 10.5 g/dl (12.0-16.0); LYMPHOCYTES # 0.7 10^3/ul (0.8-2.9); LYMPHOCYTES % 18.2 % (15.0-51.0); MEAN CORPUSCULAR HEMOGLOBIN 30.8 pg (29.0-33.0); MEAN CORPUSCULAR HGB CONC 31.6 g/dl (32.0-37.0); MEAN CORPUSCULAR VOLUME 97.4 fl (82.0-101.0); MEAN PLATELET VOLUME 9.9 fl (7.4-10.4); MONOCYTE # 0.5 10^3/ul (0.3-0.9); MONOCYTES % 12.4 % (0.0-11.0); NEUTROPHIL # 2.7 10^3/ul (1.6-7.5); NEUTROPHILS % 66.2 % (39.0-77.0); PLATELET COUNT 153 10^3/UL (140-415); RED BLOOD COUNT 3.41 10^6/ul (4.20-5.40); RED CELL DISTRIBUTION WIDTH 14.9 % (11.5-14.5)
[2017-09-28 11:38] LABS: CREATININE 1.44 mg/dl (0.44-1.00); POTASSIUM 4.7 mmol/L (3.5-5.1)
--- NOTE | 2017-09-28 16:29 | PN ---
Date/Time of Note Date/Time of Note DATE: 09/28/17 TIME: 16:17 Assessment/Plan VTE Prophylaxis VTE Prophylaxis Intervention: other (On Eliquis) Lines/Catheters [facility]from [facility] Saline Lock Urinary Cath still in place: No Assessment/Plan Assessment/Plan 86-year-old female with: 1. CHF exacerbation with shortness of breath and lower extremity edema increased on admission. Patient with known ischemic cardiomyopathy and ejection fraction 25%, 3 months ago, respiratory symptoms seem to have resolved. However lower extremity edema still significant. Will increase Bumex to 1 mg p.o. twice daily, monitor renal function. Appreciate recommendations from cardiology. Patient currently on room air, renal function is stable so far. urine output is adequate. Patient is observed to be on room air so far even with ambulation. 2. Sick sinus syndrome and or paroxysmal atrial fibrillation based on medications patient is on, s/p Pacemaker battery change 3 months ago. Stable from cardiac standpoint, continue current medications. Continue Eliquis 3. Coronary artery disease and ischemic cardiomyopathy with EF 25%, on Lasix for diuresis currently, continue current meds. We will plan on discharging on Bumex in the next 24 hours. 4. Chronic kidney disease, likely stage III, renal function seems to be stable with ongoing diuresis. Good urine output Monitor renal function while getting more diuretics 5. Mild to moderate dementia: Patient gets frustrated due to language barrier, she is compliant this afternoon but was refusing blood draw in the morning. She does sundown on and off. Sitter at bedside. Prophylaxis: Patient already on Eliquis, Protonix for GI prophylaxis. Disposition: Discharge home in the next 24 hours with home health RN and outpatient follow-up with cardiology and primary care physician. Subjective 24 Hr Interval Summary Free Text/Dictation Patient able to lie flat with no orthopnea or paroxysmal nocturnal dyspnea, she is not having any shortness of breath currently noted, however she still has at least +3 edema lower extremity. Will increase her Bumex dosing with repeat BMP in a.m. Otherwise patient has no complaints. Exam/Review of Systems Vital Signs Vitals Vital Signs Date Time Temp Pulse Resp B/P Pulse Ox O2 Delivery O2 Flow Rate FiO2 09/28/17 16:14 60 09/28/17 16:00 97.9 17 136/70 96 09/25/17 21:43 Room Air Intake and Output 11/13/17 11/13/17 11/14/17 15:00 23:00 07:00 Intake Total 700 ml 200 ml Output Total 150 ml 1300 ml Balance 550 ml -1100 ml Exam Constitutional: alert, oriented, well developed Respiratory: clear to auscultation, normal air movement Cardiovascular: nl pulses, regular rate and rhythm Gastrointestinal: non-tender, soft Musculoskeletal: swelling (+2-3 edema lower extremity bilaterally) Extremities: normal pulses Neurological: LEAD SOLUTIONS ARCHITECT II-XII intact, nl mental status, nl speech, nl strength Results Result Diagram: 09/28/17 1102 09/28/17 1102 Results 24 hrs Laboratory Tests Test 09/28/17 11:02 White Blood Count 4.0 L Red Blood Count 3.41 L Hemoglobin 10.5 L Hematocrit 33.2 L Mean Corpuscular Volume 97.4 Mean Corpuscular Hemoglobin 30.8 Mean Corpuscular Hemoglobin Concent 31.6 L Red Cell Distribution Width 14.9 H Platelet Count 153 Mean Platelet Volume 9.9 Neutrophils % 66.2 Lymphocytes % 18.2 Monocytes % 12.4 H Eosinophils % 1.7 Basophils % 1.0 Nucleated Red Blood Cells % 0.0 Neutrophils # 2.7 Lymphocytes # 0.7 L Monocytes # 0.5 Eosinophils # 0.1 Basophils # 0.0 Nucleated Red Blood Cells # 0.0 Sodium Level 140 Potassium Level 4.7 Chloride Level 101 Carbon Dioxide Level 30 Anion Gap 14 Blood Urea Nitrogen 29 H Creatinine 1.44 H Glucose Level 114 Calcium Level 9.0 Magnesium Level 2.0 Medications Medications Current Medications Apixaban (Eliquis) 2.5 mg BID PO Last administered on 09/28/17 08:26; Admin Dose 2.5 MG; Start 09/25/17 at 23:30 Atorvastatin Calcium (Lipitor) 20 mg QHS PO Last administered on 09/27/17 20: 16; Admin Dose 20 MG; Start 09/26/17 at 21:00 Docusate Sodium (Colace) 250 mg DAILY PO Last administered on 09/28/17 08:26 ; Admin Dose 250 MG; Start 09/26/17 at 09:00 Ferrous Sulfate (Ferrous Sulfate (Ec)) 325 mg BID PO Last administered on 09/28 08:25; Admin Dose 325 MG; Start 09/26/17 at 09:00 Mirtazapine (Remeron) 15 mg HS PO Last administered on 09/27/17 20:16; Admin Dose 15 MG; Start 09/26/17 at 21:00 Silver Sulfadiazine (Thermazene 1% 25 Gm) 1 applic DAILY TOP Last administered on 09/28/17 08:32; Admin Dose 1 APPLIC; Start 09/26/17 at 09:00 Ondansetron HCl (Zofran Tab) 4 mg Q6H PRN PO NAUSEA AND/OR VOMITING; Start 10/01 at 23:30 Acetaminophen (Tylenol Tab) 650 mg Q6H PRN PO PAIN LEVEL 1-3 OR FEVER; Start 09/25/17 at 23:30 Docusate Sodium (Colace) 100 mg Q12H PRN PO CONSTIPATION; Start 09/25/17 at 23 :30 Famotidine (Pepcid) 20 mg DAILY PO Last administered on 09/28/17 08:25; Admin Dose 20 MG; Start 09/25/17 at 23:30 Bumetanide (Bumex) 1 mg DAILY PO Last administered on 09/28/17 08:25; Admin Dose 1 MG; Start 09/28/17 at 09:00 JACQUE MARTINEZ Sep 28, 2017 16:29
[2017-09-28] MEDS: BUMETANIDE 1 MG TAB PO SCH (17:38)
[2017-09-28] MEDS: ATORVASTATIN 20 MG TAB PO SCH (20:59)
[2017-09-28] MEDS: MIRTAZAPINE 15 MG TAB PO SCH (20:59)
--- NOTE | 2017-09-28 21:44 | RADRPT ---
Vent Rate: 61 bpm RR Interval: 0 msec VA Interval: 0 msec QRS Duration: 134 msec QT Interval: 458 msec QTC Interval: 461 msec P-R-T [place]: 0 - 93 - 37 degrees V paced Nonspecific intraventricular block Inferior infarct , age undetermined Anterolateral infarct , age undetermined Abnormal ECG Electronically Signed By: Shady Griffin [id number]
[2017-09-29] VITALS (8 sets, daily range): BP systolic 100–138; BP diastolic 56–66; PULSE 59–63; RESP 18–20
[2017-09-29] MEDS: BUMETANIDE 1 MG TAB PO SCH ×2 (06:16→19:00)
[2017-09-29 08:45] LABS: MAGNESIUM 2.1 mg/dl (1.7-2.5); PHOSPHORUS 4.7 mg/dl (2.5-4.9)
[2017-09-29 08:48] LABS: CALCIUM 9.1 mg/dl (8.4-10.2); CREATININE 1.57 mg/dl (0.44-1.00); POTASSIUM 4.4 mmol/L (3.5-5.1)
[2017-09-29] MEDS: DOCUSATE SODIUM 250 MG CAP PO SCH (09:06)
[2017-09-29] MEDS: FAMOTIDINE 20 MG TAB PO SCH (09:06)
[2017-09-29] MEDS: FERROUS SULFATE (EC) 325 MG TAB PO SCH (09:06)
[2017-09-29] MEDS: APIXABAN 5 MG TABLET PO SCH (09:07)
[2017-09-29] MEDS: SILVER SULFADIAZINE 1% 25 GM CR TOP SCH (09:08)
--- NOTE | 2017-09-29 11:45 | CONS ---
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 If blood pressure tolerates, consider initiation of afterload reduction given severe systolic dysfunction. Continue anticoagulation if no contraindication. Consultation Date/Type/Reason Admit Date/Time Sep 25, 2017 at 19:46 Type of Consultation: cv 24 HR Interval Summary Free Text/Dictation Patient seen and examined, family bedside Exam/Review of Systems Vital Signs Vitals Vital Signs Date Time Temp Pulse Resp B/P Pulse Ox O2 Delivery O2 Flow Rate FiO2 09/29/17 08:20 63 09/29/17 07:06 97.7 20 113/57 98 09/25/17 21:43 Room Air Intake and Output 09/28/17 09/28/17 09/29/17 14:59 22:59 06:59 Intake Total 650 ml 250 ml Balance 650 ml 250 ml Exam No apparent distress, following commands Constitutional: alert Head: normocephalic Respiratory: other (Coarse breath sounds bilaterally, no wheezing) Cardiovascular: other (S1-S2 heard), regular rate and rhythm Gastrointestinal: bowel sounds, non-tender, soft Extremities: edema Results Result Diagram: 09/28/17 1102 09/29/17 0702 Results 24 hrs Laboratory Tests Test 09/29/17 07:02 Sodium Level 141 Potassium Level 4.4 Chloride Level 98 Carbon Dioxide Level 31 Anion Gap 16 Blood Urea Nitrogen 31 H Creatinine 1.57 H Glucose Level 92 Calcium Level 9.1 Phosphorus Level 4.7 Magnesium Level 2.1 Medications Medications Current Medications Apixaban (Eliquis) 2.5 mg BID PO Last administered on 09/29/17 09:07; Admin Dose 2.5 MG; Start 09/25/17 at 23:30 Atorvastatin Calcium (Lipitor) 20 mg QHS PO Last administered on 09/28/17 20: 59; Admin Dose 20 MG; Start 09/26/17 at 21:00 Docusate Sodium (Colace) 250 mg DAILY PO Last administered on 09/29/17 09:06 ; Admin Dose 250 MG; Start 09/26/17 at 09:00 Ferrous Sulfate (Ferrous Sulfate (Ec)) 325 mg BID PO Last administered on 09/29 09:06; Admin Dose 325 MG; Start 09/26/17 at 09:00 Mirtazapine (Remeron) 15 mg HS PO Last administered on 09/28/17 20:59; Admin Dose 15 MG; Start 09/26/17 at 21:00 Silver Sulfadiazine (Thermazene 1% 25 Gm) 1 applic DAILY TOP Last administered on 09/29/17 09:08; Admin Dose 1 APPLIC; Start 09/26/17 at 09:00 Ondansetron HCl (Zofran Tab) 4 mg Q6H PRN PO NAUSEA AND/OR VOMITING; Start 10/01 at 23:30 Acetaminophen (Tylenol Tab) 650 mg Q6H PRN PO PAIN LEVEL 1-3 OR FEVER; Start 09/25/17 at 23:30 Docusate Sodium (Colace) 100 mg Q12H PRN PO CONSTIPATION; Start 09/25/17 at 23 :30 Famotidine (Pepcid) 20 mg DAILY PO Last administered on 09/29/17 09:06; Admin Dose 20 MG; Start 09/25/17 at 23:30 Shady Griffin DO Sep 29, 2017 11:45
--- NOTE | 2017-09-29 14:09 | PN ---
Date/Time of Note Date/Time of Note DATE: 09/29/17 TIME: 14:05 Assessment/Plan VTE Prophylaxis VTE Prophylaxis Intervention: other (On Eliquis) Lines/Catheters IV [facility]from [facility] Saline Lock Urinary Cath still in place: No Assessment/Plan Assessment/Plan 86-year-old female with: 1. CHF exacerbation with shortness of breath and lower extremity edema increased on admission. Patient with known ischemic cardiomyopathy and ejection fraction 25%, 3 months ago, respiratory symptoms seem to have resolved. However lower extremity edema still significant. Appreciate final cardiology recommendation, patient to go home on Bumex 1 mg p.o. twice daily, monitor renal function as outpatient, patient will be referred to nephrology again. Patient currently on room air, renal function is stable so far. urine output is adequate. Patient is observed to be on room air so far even with ambulation. Follow-up with cardiology outpatient 2. Sick sinus syndrome and or paroxysmal atrial fibrillation based on medications patient is on, s/p Pacemaker battery change 3 months ago. Stable from cardiac standpoint, continue current medications. Continue Eliquis 3. Coronary artery disease and ischemic cardiomyopathy with EF 25%, on Bumex for diuresis currently, continue current meds. We will plan on discharging on Bumex today. 4. Chronic kidney disease, likely stage III, renal function seems to be stable with ongoing diuresis. Good urine output Follow-up with nephrology as an outpatient, patient does have authorization but will also place referral 5. Mild to moderate dementia: Patient gets frustrated due to language barrier, she is compliant this afternoon but was refusing blood draw in the morning. She does sundown on and off. Sitter at bedside. Prophylaxis: Patient already on Eliquis, Protonix for GI prophylaxis. Disposition: Discharge home today with home health RN and outpatient follow-up with cardiology, nephrology and primary care physician. Subjective 24 Hr Interval Summary Free Text/Dictation Patient doing well, no complaints today, on room air, observed to be ambulating. She still has some lower extremity edema but will be discharged on Bumex. Cardiology agreeable. Exam/Review of Systems Vital Signs Vitals Vital Signs Date Time Temp Pulse Resp B/P Pulse Ox O2 Delivery O2 Flow Rate FiO2 09/29/17 12:13 61 09/29/17 11:54 98.1 20 100/56 97 09/25/17 21:43 Room Air Intake and Output 09/28/17 09/28/17 09/29/17 14:59 22:59 06:59 Intake Total 650 ml 250 ml Balance 650 ml 250 ml Exam Constitutional: alert, oriented, well developed Respiratory: clear to auscultation, normal air movement Cardiovascular: nl pulses, regular rate and rhythm Gastrointestinal: non-tender, soft Musculoskeletal: nl extremities to inspection, nl gait and stance Extremities: normal pulses, other (No edema, clubbing or cyanosis) Neurological: CLEANER AND DYER II-XII intact, nl mental status, nl speech, nl strength (At baseline) Results Result Diagram: 09/28/17 1102 09/29/17 0702 Results 24 hrs Laboratory Tests Test 09/29/17 07:02 Sodium Level 141 Potassium Level 4.4 Chloride Level 98 Carbon Dioxide Level 31 Anion Gap 16 Blood Urea Nitrogen 31 H Creatinine 1.57 H Glucose Level 92 Calcium Level 9.1 Phosphorus Level 4.7 Magnesium Level 2.1 Medications Medications Current Medications Apixaban (Eliquis) 2.5 mg BID PO Last administered on 09/29/17 09:07; Admin Dose 2.5 MG; Start 09/25/17 at 23:30 Atorvastatin Calcium (Lipitor) 20 mg QHS PO Last administered on 09/28/17 20: 59; Admin Dose 20 MG; Start 09/26/17 at 21:00 Docusate Sodium (Colace) 250 mg DAILY PO Last administered on 09/29/17 09:06 ; Admin Dose 250 MG; Start 09/26/17 at 09:00 Ferrous Sulfate (Ferrous Sulfate (Ec)) 325 mg BID PO Last administered on 09/29 09:06; Admin Dose 325 MG; Start 09/26/17 at 09:00 Mirtazapine (Remeron) 15 mg HS PO Last administered on 09/28/17 20:59; Admin Dose 15 MG; Start 09/26/17 at 21:00 Silver Sulfadiazine (Thermazene 1% 25 Gm) 1 applic DAILY TOP Last administered on 09/29/17 09:08; Admin Dose 1 APPLIC; Start 09/26/17 at 09:00 Ondansetron HCl (Zofran Tab) 4 mg Q6H PRN PO NAUSEA AND/OR VOMITING; Start 11/ 11/17 at 23:30 Acetaminophen (Tylenol Tab) 650 mg Q6H PRN PO PAIN LEVEL 1-3 OR FEVER; Start 09/25/17 at 23:30 Docusate Sodium (Colace) 100 mg Q12H PRN PO CONSTIPATION; Start 09/25/17 at 23 :30 Famotidine (Pepcid) 20 mg DAILY PO Last administered on 09/29/17t 09:06; Admin Dose 20 MG; Start 09/25/17 at 23:30 JACQUE MARTINEZ Sep 29, 2017 14:09
[2017-09-29] MEDS ORDERED: BUME1TAB18 PO (14:10)
--- NOTE | 2017-09-29 14:10 | PDOCDIS ---
Discharge Instructions CONDITION Patient Condition: Stable HOME CARE INSTRUCTIONS: Diet Instructions: 2gm Na ACTIVITY: Activity Restrictions: Slowly Increase Activity FOLLOW UP/APPOINTMENTS Follow-up Plan Follow-up with primary care physician within 1 week Follow-up with outpatient cardiology within 1-2 weeks Follow-up with nephrology outpatient or new referral to nephrology outpatient within 1-2 weeks, regarding chronic kidney disease and congestive heart failure on diuretics JACQUE MARTINEZ Sep 29, 2017 14:10
== END 2017-09-29 19:18 | disposition home health service (06) | DRG 291 ==
LOC: E/R 16:41 → TEL 19:46
PROVIDERS: ADMIT Internal Medicine; ATTEND Internal Medicine
DX: I13.0 Hypertensive heart and chronic kidney disease with heart failure and stage 1 through stage 4 chronic kidney disease, or unspecified chronic kidney disease (principal); I50.23 Acute on chronic systolic (congestive) heart failure; N17.9 Acute kidney failure, unspecified; I48.0 Paroxysmal atrial fibrillation; F03.90 Unspecified dementia, unspecified severity, without behavioral disturbance, psychotic disturbance, mood disturbance, and anxiety; Z79.01 Long term (current) use of anticoagulants; N18.3 Chronic kidney disease, stage 3 (moderate); Z95.0 Presence of cardiac pacemaker; I25.2 Old myocardial infarction
CPT/HCPCS: 36415; 71010; 80048; 80053; 82550; 82553; 82607; 82746; 83540; 83690; 83735; 83880; 84100; 84443; 84484; 85025; 85610; 87081; 93005; 96374; J1940